=== PATIENT | male | born 1975 | race Caucasian/White ===

== ENCOUNTER 2020-03-05 18:23 | Inpatient (IN) | payer BC ==
[~2020-03-05] VITALS: Ht 180.3 cm; Wt 88.5 kg
--- NOTE | 2020-03-05 19:27 | PHYS DOC ---
Past Medical History Past Medical History: No Pertinent History (KWESI ANTONIO MD) Drug Use: None (KWESI ANTONIO MD) General Adult EDM: Chief Complaint: ABDOMINAL PAIN HPI: HPI: Patient is a 44 year old old male presents with 1 day history of right lower quadrant stabbing pain. Patient has some nausea but no vomiting or diarrhea. Pain is worse with movement and not relieved by anything. Patient denies any fever, chills, cough or shortness of breath. Patient states pain is now about 6 out of 10. Pain prevented him from sleeping well last night. (KWESI ANTONIO MD) Review of Systems: Review of Systems: Constitutional: Denies fever or chills. [] Eyes: Denies change in visual acuity. [] HENT: Denies nasal congestion or sore throat. [] Respiratory: Denies cough or shortness of breath. [] Cardiovascular: Denies chest pain or edema. [] GI: Complains abdominal pain and nausea : Denies dysuria. [] Musculoskeletal: Denies back pain or joint pain. [] Integument: Denies rash. [] Neurologic: Denies headache, focal weakness or sensory changes. [] Endocrine: Denies polyuria or polydipsia. [] Lymphatic: Denies swollen glands. [] Psychiatric: Denies depression or anxiety. [] (KWESI ANTONIO MD) Heart Score: Risk Factors: Risk Factors: DM, Current or recent (<one month) smoker, HTN, HLP, family history of CAD, obesity. Risk Scores: Score 0 - 3: 2.5% MACE over next 6 weeks - Discharge Home Score 4 - 6: 20.3% MACE over next 6 weeks - Admit for Clinical Observation Score 7 - 10: 72.7% MACE over next 6 weeks - Early Invasive Strategies (KWESI ANTONIO MD) Physical Exam: PE: Constitutional: Well developed, well nourished, no acute distress, non-toxic appearance. [] HENT: Normocephalic, atraumatic, bilateral external ears normal, no trismus nose normal. [] Eyes: PERRLA, EOMI, conjunctiva normal, no discharge. [] Neck: Normal range of motion, no tenderness, supple, no stridor. [] Cardiovascular:Heart rate regular rhythm, Lungs & Thorax: no resp distress Abdomen: , soft, ttp rlq no masses, no pulsatile masses. [] no guard/rebound Skin: Warm, dry, no erythema, no rash. [] Back: No tenderness, no CVA tenderness. [] Extremities: No tenderness, no cyanosis, no clubbing, ROM intact, no edema. [] Neurologic: Alert and oriented X 3, normal motor function, normal sensory function, no focal deficits noted. [] Psychologic: Affect normal, judgement normal, mood normal. [] (KWESI ANTONIO MD) PE: Constitutional: Well developed, well nourished, no acute distress, non-toxic appearance HENT: Normocephalic, atraumatic Eyes: Conjunctiva normal, no discharge Neck: Normal range of motion, supple Lungs & Thorax: No respiratory distress, equal chest rise and fall Abdomen: Soft, RLQ tenderness on palpation, no guarding/rebound tenderness/distention Skin: Warm, dry, no erythema, no rash Extremities: No tenderness, ROM intact, no edema Neurologic: Alert and oriented X 3, no focal deficits noted Psychologic: Affect normal, judgment normal (PATRICIA VALLE DO) Current Patient Data: Labs: Laboratory Tests Test 03/05/20 19:30 03/05/20 19:39 Urine Collection Type U cath Urine Color Yellow Urine Clarity Clear Urine pH 6.0 Urine Specific [place] 1.020 Urine Protein Negative mg/dL Urine Glucose (UA) Negative mg/dL Urine Ketones (Stick) Negative mg/dL Urine Blood Negative Urine Nitrite Negative Urine Bilirubin Negative Urine Urobilinogen Dipstick 1.0 mg/dL Urine Leukocyte Esterase Negative Urine RBC 0 /HPF Urine WBC 5-10 /HPF Urine Squamous Epithelial Cells Mod /LPF Urine Bacteria Moderate /HPF Urine Mucus Marked /LPF White Blood Count 7.3 x10^3/uL Red Blood Count 4.53 x10^6/uL Hemoglobin 15.0 g/dL Hematocrit 44.2 % Mean Corpuscular Volume 98 fL Mean Corpuscular Hemoglobin 33 pg Mean Corpuscular Hemoglobin Concent 34 g/dL Red Cell Distribution Width 13.0 % Platelet Count 263 x10^3/uL Neutrophils (%) (Auto) 70 % Lymphocytes (%) (Auto) 17 % Monocytes (%) (Auto) 10 % Eosinophils (%) (Auto) 2 % Basophils (%) (Auto) 1 % Neutrophils # (Auto) 5.1 x10^3/uL Lymphocytes # (Auto) 1.2 x10^3/uL Monocytes # (Auto) 0.7 x10^3/uL Eosinophils # (Auto) 0.2 x10^3/uL Basophils # (Auto) 0.1 x10^3/uL Sodium Level 142 mmol/L Potassium Level 3.9 mmol/L Chloride Level 106 mmol/L Carbon Dioxide Level 30 mmol/L Anion Gap 6 Blood Urea Nitrogen 7 mg/dL Creatinine 1.1 mg/dL Estimated GFR (Cockcroft-Gault) 72.7 BUN/Creatinine Ratio 6 Glucose Level 83 mg/dL Calcium Level 8.6 mg/dL Total Bilirubin 0.5 mg/dL Aspartate Amino Transf (AST/SGOT) 14 U/L Alanine Aminotransferase (ALT/SGPT) 31 U/L Alkaline Phosphatase 67 U/L Total Protein 6.7 g/dL Albumin 3.4 g/dL Albumin/Globulin Ratio 1.0 Lipase 686 U/L Current Medications Medications (Trade) Dose Ordered Sig/Kasia Route PRN Reason Start Time Stop Time Status Last Admin Dose Admin Morphine Sulfate (Morphine Sulfate) 4 mg PRN Q15MIN PRN IV/SQ PAIN GREATER THAN 3/10 03/05/20 19:45 03/06/20 19:44 03/05/20 20:22 Sodium Chloride 1,000 ml @ 1,000 mls/hr Q1H IV 03/05/20 19:33 03/05/20 20:32 DC 03/05/20 20:22 Ondansetron HCl (Zofran) 4 mg 1X ONCE IVP 03/05/20 19:45 03/05/20 19:47 DC 03/05/20 20:20 Iohexol (Omnipaque 300 Mg/ml) 75 ml 1X ONCE IV 03/05/20 20:15 03/05/20 20:19 DC Info (CONTRAST GIVEN -- Rx MONITORING) 1 each PRN DAILY PRN MC SEE COMMENTS 03/05/20 20:30 03/07/20 20:29 Vital Signs: Vital Signs Date Time Temp Pulse Resp B/P (MAP) Pulse Ox O2 Delivery O2 Flow Rate FiO2 03/05/20 19:22 98.6 87 16 118/91 (100) 96 Room Air 98.6 (KWESI ANTONIO MD) EKG: EKG: [] (KWESI NATONIO MD) Radiology/Procedures: Radiology/Procedures: [] (KWESI ANTONIO MD) Radiology/Procedures: PROCEDURE: CT ABD PELV W/ IV CONTRST ONLY CT SCAN OF THE ABDOMEN AND PELVIS WITH IV CONTRAST. History: Reason: rlq pain / Spl. Instructions: INJ 75ML OMNI 300 / History: Comparison:None. Procedure: Contiguous axial images of the abdomen and pelvis were performed after the administration of 75 cc of Omni 300 IV contrast. Oral contrast: No. Findings: There is moderate left hydronephrosis and left hydroureter and there is decreased perfusion of the left kidney. The gallbladder is collapsed and not well evaluated. The appendix is not well seen but appears normal. The cecum and ascending colon are fairly distended and there is moderate wall thickening of a 4.3 similar length of the hepatic flexure the colon. The more distal colon is collapsed. The urinary bladder is mostly collapsed is moderate wall thickening. Liver: Unremarkable Spleen: Unremarkable Pancreas: Unremarkable Adrenal Glands: Unremarkable There is no mass or lymphadenopathy. There is no free air. There is a small amount of free fluid in the pelvis. Impression: 1. Findings suggest partial obstruction of the colon due an apple core lesion in the hepatic flexure the colon. This suggests an adenocarcinoma although focal colitis is possible. 2. Moderate left hydronephrosis and left hydroureter and decreased perfusion of the left kidney. A radiopaque stone is not seen. 3. Trace of free fluid in the pelvis. End impression PQRS Compliance Statement: One or more of the following individualized dose reduction techniques were utilized for this examination: 1. Automated exposure control 2. Adjustment of the mA and/or kV according to patient size 3. Use of iterative reconstruction technique Electronically signed by: Messi Eller III, MD (03/05/2020 9:43 PM) [facility] (PATRICIA VALLE DO) Course & Med Decision Making: Course & Med Decision Making Pertinent Labs and Imaging studies reviewed. (See chart for details) [] 44-year-old male presents with right lower quadrant pain. Patient is to undergo a CT of the abdomen pelvis. Care is signed over to Dr. Valle with the CT report and disposition pending. Patient clinically stable on reassessment. (KWESI ANTONIO MD) Course & Med Decision Making 2100- Sign out received from Dr. Antonio for patient with RLQ abdominal pain. CT imaging pending. Labs reviewed. Patient seen and evaluated by myself. CT findings with concern for partial colon obstruction with apple core lesion concerning for adenocarcinoma. Patient requiring admission for further evaluation and treatment. Discussed with Dr. Blunt (hospitalist) who is in agreement with admission. Consult placed for general surgery and GI. COVID testing obtained due to possible surgery/procedural need. Discussed findings and plan with patient, who acknowledges understanding and agreement. (PATRICIA VALLE DO) Dragon Disclaimer: Dragon Disclaimer: This electronic medical record was generated, in whole or in part, using a voice recognition dictation system. (KWESI ANTONIO MD) Departure Departure Impression: Primary Impression: Partial obstruction of colon Disposition: ADMITTED INPATIENT Admitting Physician: ALESSANDRO Sethi) (PATRICIA VALLE DO) Condition: STABLE Justicifation of Admission Dx: Justifications for Admission: Justification of Admission Dx: N/A (KWESI ANTONIO MD) Justification of Admission Dx: Yes Comments: Partial colon obstruction (PATRICIA VALLE DO) KWESI ANTONIO MD Mar 05, 2020 19:27 PATRICIA VALLE DO Mar 05, 2020 22:25
[2020-03-05] MEDS ORDERED: IV NORMAL SALINE 1000ML BAG 1,000 ML IV SCH (19:33)
[2020-03-05] MEDS ORDERED: ONDANSETRON PF 4 MG/2 ML VIAL. IVP ONE (19:45)
[2020-03-05] MEDS ORDERED: MORPHINE SULFATE 4 MG/ML VIAL. IV/SQ PRN (19:45)
[2020-03-05 19:50] LABS: BILIRUBIN,URINE NEGATIVE (NEG); CLARITY,URINE CLEAR; COLOR,URINE YELLOW; NITRITE,URINE NEGATIVE (NEG); PROTEIN,URINE NEGATIVE (NEG-TRACE)
[2020-03-05 19:50] LABS: BASO # 0.1 x10^3/uL (0.0-0.2); BASO % 1 % (0-3); EOS # 0.2 x10^3/uL (0.0-0.7); EOS % 2 % (0-3); HEMATOCRIT 44.2 % (39.0-53.0); LYMPH # 1.2 x10^3/uL (1.0-4.8); LYMPH % 17 % (24-48); MEAN CORPUSCULAR HEMOGLOBIN 33 pg (25-35); MEAN CORPUSCULAR HGB CONC 34 g/dL (31-37); MEAN CORPUSCULAR VOLUME 98 fL (79-100); MONO # 0.7 x10^3/uL (0.0-1.1); MONO % 10 % (0-9); NEUT # 5.1 x10^3/uL (1.8-7.7); NEUT % 70 % (31-73); PLATELET COUNT 263 x10^3/uL (140-400); RED BLOOD COUNT 4.53 x10^6/uL (4.30-5.70); WHITE BLOOD COUNT 7.3 x10^3/uL (4.0-11.0)
[2020-03-05 19:56] LABS: BACTERIA,URINE MODERATE /HPF (0-FEW); RBC,URINE 0 /HPF (0-2); SQUAMOUS EPITHELIAL CELL,UR MOD /LPF
[2020-03-05 19:58] LABS: CALCIUM 8.6 mg/dL (8.5-10.1); CREATININE 1.1 mg/dL (0.7-1.3); GFR 72.7; POTASSIUM 3.9 mmol/L (3.5-5.1)
[2020-03-05 20:04] LABS: ALBUMIN 3.4 g/dL (3.4-5.0); TOTAL BILIRUBIN 0.5 mg/dL (0.2-1.0); TOTAL PROTEIN 6.7 g/dL (6.4-8.2)
[2020-03-05] MEDS ORDERED: IOHEXOL 300 MG/ML 100ML VIAL. IV ONE (20:15)
[2020-03-05] MEDS ORDERED: CONTRAST GIVEN. MC PRN (20:30)
--- NOTE | 2020-03-05 21:46 | RAD ---
CT SCAN OF THE ABDOMEN AND PELVIS WITH IV CONTRAST. History: Reason: rlq pain / Spl. Instructions: INJ 75ML OMNI 300 / History: Comparison:None. Procedure: Contiguous axial images of the abdomen and pelvis were performed after the administration of 75 cc of Omni 300 IV contrast. Oral contrast: No. Findings: There is moderate left hydronephrosis and left hydroureter and there is decreased perfusion of the left kidney. The gallbladder is collapsed and not well evaluated. The appendix is not well seen but appears normal. The cecum and ascending colon are fairly distended and there is moderate wall thickening of a 4.3 similar length of the hepatic flexure the colon. The more distal colon is collapsed. The urinary bladder is mostly collapsed is moderate wall thickening. Liver: Unremarkable Spleen: Unremarkable Pancreas: Unremarkable Adrenal Glands: Unremarkable There is no mass or lymphadenopathy. There is no free air. There is a small amount of free fluid in the pelvis. Impression: 1. Findings suggest partial obstruction of the colon due an apple core lesion in the hepatic flexure the colon. This suggests an adenocarcinoma although focal colitis is possible. 2. Moderate left hydronephrosis and left hydroureter and decreased perfusion of the left kidney. A radiopaque stone is not seen. 3. Trace of free fluid in the pelvis. End impression PQRS Compliance Statement: One or more of the following individualized dose reduction techniques were utilized for this examination: 1. Automated exposure control 2. Adjustment of the mA and/or kV according to patient size 3. Use of iterative reconstruction technique Electronically signed by: Messi Eller III, MD (03/05/2020 9:43 PM) [facility]
[2020-03-05] MEDS ORDERED: fentaNYL PF VIAL 100 MCG/2 ML VIAL IV PRN (22:30)
[2020-03-05] MEDS ORDERED: ONDANSETRON PF 4 MG/2 ML VIAL. IV PRN (22:30)
--- NOTE | 2020-03-05 23:35 | NUR ---
Patient arrived on unit at 2335 by wheelchair from ER. Pt. is A&Ox4, on room air, and VSS. Pt.'s pain is 3/10 and does not complain of any nausea or vomiting. Admission questions and assessment done at this time. Call light was placed within reach with bed in lowest position. Will continue to monitor.
[2020-03-05 23:40] VITALS: BP 136/94
[2020-03-06] MEDS: IV NORMAL SALINE 1000ML BAG 1,000 ML IV SCH ×3 (00:19→20:24)
--- NOTE | 2020-03-06 01:25 | NUR ---
pt. eats a low carb diet most days. Addendum: 03/06/20 at 0141 by SERGO MORAN RN Amended: Links added.
[2020-03-06] MEDS ORDERED: CETI10TA74 PO (01:59)
[2020-03-06 03:00] VITALS: BP 117/79
[2020-03-06] MEDS ORDERED: CITA20TA9 PO (06:52)
[2020-03-06 07:00] VITALS: BP 124/79
[2020-03-06] MEDS ORDERED: POLYETHYLENE GLYCOL 3350 17 GM PACKET. PO ONE (07:45)
--- NOTE | 2020-03-06 08:16 | PDOC1 ---
History and Physical Date of Admission Date of Admission 03/06/2020 Identification/Chief Complaint Chief Complaint Roseann arias History of Present Illness History of Present Illness Patient is a 44-year-old gentleman with no significant past medical history who was in his usual state of health until approximately 2 days prior to his admission when he started presenting discomfort over his right lower quadrant that initially was mild intensity that over the course of the last 36 hours has intensified. The patient rates the pain at a 10 out of 10 on the day of visit to the ER. Patient denied any fever no nausea vomiting no sick contacts were reported. The patient has not traveled outside this area, he denies any loss of olfactory or taste sensation. He has not been exposed to COVID-19 illness. Patient at the time my evaluation is laying in bed in no apparent distress. His pain seems to be improved compared to initial assessment in the emergency department. He denies any dietary transgressions and actually has had a 100 p ound weight loss over the last 3 years as a consequence of lifestyle modifications. This has certainly been intentional in nature. Patient was scanned and there seems to be a partial obstruction or the right side of: And at the level of the hepatic flexure there seems to be an apple core lesion which could raise possibility of malignancy hence the reason we were asked to admit th e patient for further evaluation. Reassurance has been provided to the patient plan of care discussed in detail no other concerns have been reported by the patient He denies headache blurred vision no neurological deficits no dysphagia odynophagia no chest pain no palpitations no shortness of breath has been reported Past Medical History Past Medical History No significant past medical history Past Surgical History Past Surgical History: Other (Carpal tunnel repair) Family History Family History: Diabetes (Brother) Social History Smoke: <1 pack per day ALCOHOL: rare Drugs: None Current Problem List Problem List Problems Medical Problems: (1) Right lower quadrant abdominal pain Status: Acute Current Medications Current Medications Current Medications Medications (Trade) Dose Ordered Sig/Kasia Start Time Stop Time Status Last Admin Dose Admin Fentanyl Citrate (Fentanyl 2ml Vial) 50 mcg PRN Q2HRS PRN 03/05/20 22:30 Info (CONTRAST GIVEN -- Rx MONITORING) 1 each PRN DAILY PRN 03/05/20 20:30 03/07/20 20:29 Iohexol (Omnipaque 300 Mg/ml) 75 ml 1X ONCE 03/05/20 20:15 03/05/20 20:19 DC 03/05/20 20:15 75 ML Morphine Sulfate (Morphine Sulfate) 4 mg PRN Q15MIN PRN 03/05/20 19:45 03/06/20 19:44 03/05/20 20:22 4 MG Ondansetron HCl (Zofran) 4 mg PRN Q8HRS PRN 03/05/20 22:30 03/06/20 22:29 Polyethylene Glycol (miraLAX PACKET) 34 gm 1X ONCE 03/06/20 07:45 03/06/20 07:46 DC Sodium Chloride 1,000 ml @ 100 mls/hr Q10H 03/05/20 22:30 03/06/20 22:29 03/06/20 00:19 100 MLS/HR Allergies Allergies Allergies Coded Allergies Type Severity Reaction Last Updated Verified Penicillins Allergy Intermediate 03/05/20 Yes ROS Review of System CONSTITUTIONAL: No fever or chills EYES: No recent changes SKIN: No rash or itching CARDIOVASCULAR: No chest pain, syncope, palpitations, or edema RESPIRATORY: No SOB or cough GASTROINTESTINAL: No nausea, vomiting or abdominal pain NEUROLOGICAL: No headaches or weakness ENDOCRINE: No cold or heat intolerance GENITOURINARY: No urgency or frequency of urination MUSCULOSKELETAL: No back pain or joint pain LYMPHATICS: No enlarged lymph nodes PSYCHIATRIC: No anxiety or depression Physical Exam Physical Exam GEN.: No apparent distress. Alert and oriented. HEENT: Head is normocephalic, atraumatic NECK: Supple. LUNGS: Clear to auscultation. HEART: RRR, S1, S2 present. Peripheral pulses intact ABDOMEN: Soft, nontender. Positive bowel sounds. EXTREMITIES: Without any cyanosis. NEUROLOGIC: Normal speech, normal tone PSYCHIATRIC: Normal affect, normal mood. SKIN: No ulcerations Vitals Vitals Vital Signs Date Time Temp Pulse Resp B/P (MAP) Pulse Ox O2 Delivery O2 Flow Rate FiO2 03/06/20 07:00 99.0 69 18 124/79 (94) 95 Room Air 99.0 Labs Labs Laboratory Tests Test 03/05/20 19:30 03/05/20 19:39 03/05/20 22:46 Urine Collection Type U cath Urine Color Yellow Urine Clarity Clear Urine pH 6.0 (<5.0-8.0) Urine Specific [place] 1.020 (1.000-1.030) Urine Protein Negative mg/dL (NEG-TRACE) Urine Glucose (UA) Negative mg/dL (NEG) Urine Ketones (Stick) Negative mg/dL (NEG) Urine Blood Negative (NEG) Urine Nitrite Negative (NEG) Urine Bilirubin Negative (NEG) Urine Urobilinogen Dipstick 1.0 mg/dL (0.2 mg/dL) Urine Leukocyte Esterase Negative (NEG) Urine RBC 0 /HPF (0-2) Urine WBC 5-10 /HPF (0-4) Urine Squamous Epithelial Cells Mod /LPF Urine Bacteria Moderate /HPF (0-FEW) Urine Mucus Marked /LPF White Blood Count 7.3 x10^3/uL (4.0-11.0) Red Blood Count 4.53 x10^6/uL (4.30-5.70) Hemoglobin 15.0 g/dL (13.0-17.5) Hematocrit 44.2 % (39.0-53.0) Mean Corpuscular Volume 98 fL (79-100) Mean Corpuscular Hemoglobin 33 pg (25-35) Mean Corpuscular Hemoglobin Concent 34 g/dL (31-37) Red Cell Distribution Width 13.0 % (11.5-14.5) Platelet Count 263 x10^3/uL (140-400) Neutrophils (%) (Auto) 70 % (31-73) Lymphocytes (%) (Auto) 17 % (24-48) Monocytes (%) (Auto) 10 % (0-9) Eosinophils (%) (Auto) 2 % (0-3) Basophils (%) (Auto) 1 % (0-3) Neutrophils # (Auto) 5.1 x10^3/uL (1.8-7.7) Lymphocytes # (Auto) 1.2 x10^3/uL (1.0-4.8) Monocytes # (Auto) 0.7 x10^3/uL (0.0-1.1) Eosinophils # (Auto) 0.2 x10^3/uL (0.0-0.7) Basophils # (Auto) 0.1 x10^3/uL (0.0-0.2) Sodium Level 142 mmol/L (136-145) Potassium Level 3.9 mmol/L (3.5-5.1) Chloride Level 106 mmol/L (98-107) Carbon Dioxide Level 30 mmol/L (21-32) Anion Gap 6 (6-14) Blood Urea Nitrogen 7 mg/dL (8-26) Creatinine 1.1 mg/dL (0.7-1.3) Estimated GFR (Cockcroft-Gault) 72.7 BUN/Creatinine Ratio 6 (6-20) Glucose Level 83 mg/dL (70-99) Calcium Level 8.6 mg/dL (8.5-10.1) Total Bilirubin 0.5 mg/dL (0.2-1.0) Aspartate Amino Transf (AST/SGOT) 14 U/L (15-37) Alanine Aminotransferase (ALT/SGPT) 31 U/L (16-63) Alkaline Phosphatase 67 U/L (46-116) Total Protein 6.7 g/dL (6.4-8.2) Albumin 3.4 g/dL (3.4-5.0) Albumin/Globulin Ratio 1.0 (1.0-1.7) Lipase 686 U/L (73-393) SARS-CoV-2 Antigen (Rapid) Negative (NEGATIVE) Laboratory Tests Test 03/05/20 19:30 03/05/20 19:39 03/05/20 22:46 Urine Collection Type U cath Urine Color Yellow Urine Clarity Clear Urine pH 6.0 (<5.0-8.0) Urine Specific [place] 1.020 (1.000-1.030) Urine Protein Negative mg/dL (NEG-TRACE) Urine Glucose (UA) Negative mg/dL (NEG) Urine Ketones (Stick) Negative mg/dL (NEG) Urine Blood Negative (NEG) Urine Nitrite Negative (NEG) Urine Bilirubin Negative (NEG) Urine Urobilinogen Dipstick 1.0 mg/dL (0.2 mg/dL) Urine Leukocyte Esterase Negative (NEG) Urine RBC 0 /HPF (0-2) Urine WBC 5-10 /HPF (0-4) Urine Squamous Epithelial Cells Mod /LPF Urine Bacteria Moderate /HPF (0-FEW) Urine Mucus Marked /LPF White Blood Count 7.3 x10^3/uL (4.0-11.0) Red Blood Count 4.53 x10^6/uL (4.30-5.70) Hemoglobin 15.0 g/dL (13.0-17.5) Hematocrit 44.2 % (39.0-53.0) Mean Corpuscular Volume 98 fL (79-100) Mean Corpuscular Hemoglobin 33 pg (25-35) Mean Corpuscular Hemoglobin Concent 34 g/dL (31-37) Red Cell Distribution Width 13.0 % (11.5-14.5) Platelet Count 263 x10^3/uL (140-400) Neutrophils (%) (Auto) 70 % (31-73) Lymphocytes (%) (Auto) 17 % (24-48) Monocytes (%) (Auto) 10 % (0-9) Eosinophils (%) (Auto) 2 % (0-3) Basophils (%) (Auto) 1 % (0-3) Neutrophils # (Auto) 5.1 x10^3/uL (1.8-7.7) Lymphocytes # (Auto) 1.2 x10^3/uL (1.0-4.8) Monocytes # (Auto) 0.7 x10^3/uL (0.0-1.1) Eosinophils # (Auto) 0.2 x10^3/uL (0.0-0.7) Basophils # (Auto) 0.1 x10^3/uL (0.0-0.2) Sodium Level 142 mmol/L (136-145) Potassium Level 3.9 mmol/L (3.5-5.1) Chloride Level 106 mmol/L (98-107) Carbon Dioxide Level 30 mmol/L (21-32) Anion Gap 6 (6-14) Blood Urea Nitrogen 7 mg/dL (8-26) Creatinine 1.1 mg/dL (0.7-1.3) Estimated GFR (Cockcroft-Gault) 72.7 BUN/Creatinine Ratio 6 (6-20) Glucose Level 83 mg/dL (70-99) Calcium Level 8.6 mg/dL (8.5-10.1) Total Bilirubin 0.5 mg/dL (0.2-1.0) Aspartate Amino Transf (AST/SGOT) 14 U/L (15-37) Alanine Aminotransferase (ALT/SGPT) 31 U/L (16-63) Alkaline Phosphatase 67 U/L (46-116) Total Protein 6.7 g/dL (6.4-8.2) Albumin 3.4 g/dL (3.4-5.0) Albumin/Globulin Ratio 1.0 (1.0-1.7) Lipase 686 U/L (73-393) SARS-CoV-2 Antigen (Rapid) Negative (NEGATIVE) VTE Prophylaxis Ordered VTE Prophylaxis Devices: Yes VTE Pharmacological Prophylaxi: No Assessment/Plan Assessment/Plan Abdominal pain currently improved CT of the abdomen showing an apple core lesion over the hepatic flexure portion of his colon Elevated lipase with no significant clinical significance Plan: Currently n.p.o. until consultants evaluate Awaiting GI and surgical evaluation Pain management DVT prophylaxis with SCD and teds Further recommendations based on the clinical course Justicifation of Admission Dx: Justifications for Admission: Justification of Admission Dx: Yes ANDRESSA DONALDSON MD Mar 06, 2020 08:16
--- NOTE | 2020-03-06 08:57 | PDOC2 ---
CONSULT Date of Consult Date of Consult DATE: 03/06/20 TIME: 08:53 Reason for Consult Reason for Consult: Colonic obstruction Referring Physician Referring Physician: Merlene Identification/Chief Complaint Chief Complaint Right upper quadrant abdominal pain Source Source: Chart review, Patient History of Present Illness Reason for Visit: 44-year-old male the last week is had significant right upper quadrant abdominal pain rating 10 out of 10 which is why he came to the emergency department for further evaluation. He states his last bowel movement was yesterday loose and has been passing flatus has never had a colonoscopy. CT scan done at the time of emergency room evaluation shows partial obstruction of the right colon with a lesion at the hepatic flexure likely apple core concerning for malignancy Past Medical History Cardiovascular: No pertinent hx Pulmonary: No pertinent hx CENTRAL NERVOUS SYSTEM: Carpal Tunnel Syndrome GI: No pertinent hx Heme/Onc: No pertinent hx Hepatobiliary: No pertinent hx Psych: No pertinent hx Rheumatologic: No pertinent hx ENT: No pertinent hx Renal/: No pertinent hx Endocrine: No pertinent hx Dermatology: No pertinent hx Past Surgical History Past Surgical History: Other (Carpal tunnel repair) Family History Family History: Diabetes (Brother) Social History <1 pack per day ALCOHOL: rare Drugs: None Current Problem List Problem List Problems Medical Problems: (1) Right lower quadrant abdominal pain Status: Acute Current Medications Current Medications Current Medications Morphine Sulfate (Morphine Sulfate) 4 mg PRN Q15MIN PRN IV/SQ PAIN GREATER THAN 3/10 Last administered on 03/05/20at 20:22; Start 03/05/20 at 19:45; Stop 03/06/20 at 19:44 Sodium Chloride 1,000 ml @ 1,000 mls/hr Q1H IV Last administered on 03/05/20at 20:22; Start 03/05/20 at 19:33; Stop 03/05/20 at 20:32; Status DC Ondansetron HCl (Zofran) 4 mg 1X ONCE IVP Last administered on 03/05/20at 20:20; Start 03/05/20 at 19:45; Stop 03/05/20 at 19:47; Status DC Iohexol (Omnipaque 300 Mg/ml) 75 ml 1X ONCE IV Last administered on 03/05/20at 20:15; Start 03/05/20 at 20:15; Stop 03/05/20 at 20:19; Status DC Info (CONTRAST GIVEN -- Rx MONITORING) 1 each PRN DAILY PRN MC SEE COMMENTS; Start 03/05/20 at 20:30; Stop 03/07/20 at 20:29 Ondansetron HCl (Zofran) 4 mg PRN Q8HRS PRN IV NAUSEA/VOMITING; Start 03/05/20 at 22:30; Stop 03/06/20 at 22:29 Fentanyl Citrate (Fentanyl 2ml Vial) 50 mcg PRN Q2HRS PRN IV PAIN; Start 03/05/20 at 22:30 Sodium Chloride 1,000 ml @ 100 mls/hr Q10H IV Last administered on 03/06/20at 08:19; Start 03/05/20 at 22:30; Stop 03/06/20 at 22:29 Polyethylene Glycol (miraLAX PACKET) 34 gm 1X ONCE PO Last administered on 03/06/20at 08:15; Start 03/06/20 at 07:45; Stop 03/06/20 at 07:46; Status DC Active Scripts Active Reported Celexa (Citalopram Hydrobromide) 20 Mg Tablet 1 Tab PO DAILY Zyrtec (Cetirizine Hcl) 10 Mg Tablet 1 Tab PO DAILY Allergies Allergies: Coded Allergies: Penicillins (Verified Allergy, Intermediate, 03/05/20) ROS Gastrointestinal: Yes Abdominal Pain Physical Exam General: Alert, Oriented X3, Cooperative, mild distress HEENT: Atraumatic, PERRLA, EOMI Lungs: Clear to auscultation, Normal air movement Heart: Regular rate, No murmurs Abdomen: Normal bowel sounds, Soft, Other (Tender to palpation right upper quadrant mildly distended) Extremities: No edema Skin: No significant lesion Neuro: Normal speech Psych/Mental Status: Mental status NL Vitals VITALS Vital Signs Date Time Temp Pulse Resp B/P (MAP) Pulse Ox O2 Delivery O2 Flow Rate FiO2 03/06/20 07:00 99.0 69 18 124/79 (94) 95 Room Air 99.0 Labs Labs Laboratory Tests Test 03/05/20 19:30 03/05/20 19:39 03/05/20 22:46 Urine Collection Type U cath Urine Color Yellow Urine Clarity Clear Urine pH 6.0 (<5.0-8.0) Urine Specific [place] 1.020 (1.000-1.030) Urine Protein Negative mg/dL (NEG-TRACE) Urine Glucose (UA) Negative mg/dL (NEG) Urine Ketones (Stick) Negative mg/dL (NEG) Urine Blood Negative (NEG) Urine Nitrite Negative (NEG) Urine Bilirubin Negative (NEG) Urine Urobilinogen Dipstick 1.0 mg/dL (0.2 mg/dL) Urine Leukocyte Esterase Negative (NEG) Urine RBC 0 /HPF (0-2) Urine WBC 5-10 /HPF (0-4) Urine Squamous Epithelial Cells Mod /LPF Urine Bacteria Moderate /HPF (0-FEW) Urine Mucus Marked /LPF White Blood Count 7.3 x10^3/uL (4.0-11.0) Red Blood Count 4.53 x10^6/uL (4.30-5.70) Hemoglobin 15.0 g/dL (13.0-17.5) Hematocrit 44.2 % (39.0-53.0) Mean Corpuscular Volume 98 fL (79-100) Mean Corpuscular Hemoglobin 33 pg (25-35) Mean Corpuscular Hemoglobin Concent 34 g/dL (31-37) Red Cell Distribution Width 13.0 % (11.5-14.5) Platelet Count 263 x10^3/uL (140-400) Neutrophils (%) (Auto) 70 % (31-73) Lymphocytes (%) (Auto) 17 % (24-48) Monocytes (%) (Auto) 10 % (0-9) Eosinophils (%) (Auto) 2 % (0-3) Basophils (%) (Auto) 1 % (0-3) Neutrophils # (Auto) 5.1 x10^3/uL (1.8-7.7) Lymphocytes # (Auto) 1.2 x10^3/uL (1.0-4.8) Monocytes # (Auto) 0.7 x10^3/uL (0.0-1.1) Eosinophils # (Auto) 0.2 x10^3/uL (0.0-0.7) Basophils # (Auto) 0.1 x10^3/uL (0.0-0.2) Sodium Level 142 mmol/L (136-145) Potassium Level 3.9 mmol/L (3.5-5.1) Chloride Level 106 mmol/L (98-107) Carbon Dioxide Level 30 mmol/L (21-32) Anion Gap 6 (6-14) Blood Urea Nitrogen 7 mg/dL (8-26) Creatinine 1.1 mg/dL (0.7-1.3) Estimated GFR (Cockcroft-Gault) 72.7 BUN/Creatinine Ratio 6 (6-20) Glucose Level 83 mg/dL (70-99) Calcium Level 8.6 mg/dL (8.5-10.1) Total Bilirubin 0.5 mg/dL (0.2-1.0) Aspartate Amino Transf (AST/SGOT) 14 U/L (15-37) Alanine Aminotransferase (ALT/SGPT) 31 U/L (16-63) Alkaline Phosphatase 67 U/L (46-116) Total Protein 6.7 g/dL (6.4-8.2) Albumin 3.4 g/dL (3.4-5.0) Albumin/Globulin Ratio 1.0 (1.0-1.7) Lipase 686 U/L (73-393) SARS-CoV-2 Antigen (Rapid) Negative (NEGATIVE) Laboratory Tests Test 03/05/20 19:30 03/05/20 19:39 03/05/20 22:46 Urine Collection Type U cath Urine Color Yellow Urine Clarity Clear Urine pH 6.0 (<5.0-8.0) Urine Specific [place] 1.020 (1.000-1.030) Urine Protein Negative mg/dL (NEG-TRACE) Urine Glucose (UA) Negative mg/dL (NEG) Urine Ketones (Stick) Negative mg/dL (NEG) Urine Blood Negative (NEG) Urine Nitrite Negative (NEG) Urine Bilirubin Negative (NEG) Urine Urobilinogen Dipstick 1.0 mg/dL (0.2 mg/dL) Urine Leukocyte Esterase Negative (NEG) Urine RBC 0 /HPF (0-2) Urine WBC 5-10 /HPF (0-4) Urine Squamous Epithelial Cells Mod /LPF Urine Bacteria Moderate /HPF (0-FEW) Urine Mucus Marked /LPF White Blood Count 7.3 x10^3/uL (4.0-11.0) Red Blood Count 4.53 x10^6/uL (4.30-5.70) Hemoglobin 15.0 g/dL (13.0-17.5) Hematocrit 44.2 % (39.0-53.0) Mean Corpuscular Volume 98 fL (79-100) Mean Corpuscular Hemoglobin 33 pg (25-35) Mean Corpuscular Hemoglobin Concent 34 g/dL (31-37) Red Cell Distribution Width 13.0 % (11.5-14.5) Platelet Count 263 x10^3/uL (140-400) Neutrophils (%) (Auto) 70 % (31-73) Lymphocytes (%) (Auto) 17 % (24-48) Monocytes (%) (Auto) 10 % (0-9) Eosinophils (%) (Auto) 2 % (0-3) Basophils (%) (Auto) 1 % (0-3) Neutrophils # (Auto) 5.1 x10^3/uL (1.8-7.7) Lymphocytes # (Auto) 1.2 x10^3/uL (1.0-4.8) Monocytes # (Auto) 0.7 x10^3/uL (0.0-1.1) Eosinophils # (Auto) 0.2 x10^3/uL (0.0-0.7) Basophils # (Auto) 0.1 x10^3/uL (0.0-0.2) Sodium Level 142 mmol/L (136-145) Potassium Level 3.9 mmol/L (3.5-5.1) Chloride Level 106 mmol/L (98-107) Carbon Dioxide Level 30 mmol/L (21-32) Anion Gap 6 (6-14) Blood Urea Nitrogen 7 mg/dL (8-26) Creatinine 1.1 mg/dL (0.7-1.3) Estimated GFR (Cockcroft-Gault) 72.7 BUN/Creatinine Ratio 6 (6-20) Glucose Level 83 mg/dL (70-99) Calcium Level 8.6 mg/dL (8.5-10.1) Total Bilirubin 0.5 mg/dL (0.2-1.0) Aspartate Amino Transf (AST/SGOT) 14 U/L (15-37) Alanine Aminotransferase (ALT/SGPT) 31 U/L (16-63) Alkaline Phosphatase 67 U/L (46-116) Total Protein 6.7 g/dL (6.4-8.2) Albumin 3.4 g/dL (3.4-5.0) Albumin/Globulin Ratio 1.0 (1.0-1.7) Lipase 686 U/L (73-393) SARS-CoV-2 Antigen (Rapid) Negative (NEGATIVE) Images Images CT scan showing obstructed right colon with apple core lesion at the hepatic flexure. Assessment/Plan Assessment/Plan Colonic mass at the hepatic flexure causing obstruction, by CT scan it does not appear the patient will be able to be tolerate a prep prior to surgery GI to evaluate Plan for colon resection tomorrow KATE Lopez MD Mar 06, 2020 08:57
[2020-03-06 11:00] VITALS: BP 128/86
[2020-03-06 15:00] VITALS: BP 138/86
--- NOTE | 2020-03-06 15:12 | PDOC2 ---
CONSULT Date of Consult Date of Consult DATE: 03/06/20 TIME: 14:58 Reason for Consult Reason for Consult: Abdominal pain, abnormal CT scan History of Present Illness Reason for Visit: This is a 44-year-old man who is been in good health with no significant GI complaints in the past. He describes sudden onset of abdominal pain mostly right lower quadrant on evening. It improved with some ibuprofen but then recurred. It is a sharp stabbing pain that forced him to come to the hospital. He does relate some intentional weight loss over the past several years on a low-carb diet. He does not have any dramatic worsening of weight loss recently and denies any nausea, vomiting, constipation, rectal bleeding or melena. In fact he had a bowel movement yesterday and has a normal bowel movement daily with his coffee. There is no history of colonoscopy. He also has no family history of colon cancer or polyps. Initial evaluation included CT scan which revealed a partial obstruction of the right colon with what appears to be a narrowing in the hepatic flexure suggestive of an apple core lesion. There is a fair amount of gas and stool distention behind this. Past Medical History Cardiovascular: No pertinent hx Pulmonary: No pertinent hx CENTRAL NERVOUS SYSTEM: Carpal Tunnel Syndrome GI: No pertinent hx Heme/Onc: No pertinent hx Hepatobiliary: No pertinent hx Psych: No pertinent hx Rheumatologic: No pertinent hx ENT: No pertinent hx Renal/: No pertinent hx Endocrine: No pertinent hx Dermatology: No pertinent hx Past Surgical History Past Surgical History: Other (Carpal tunnel repair) Family History Family History: Diabetes (Brother) Social History <1 pack per day ALCOHOL: rare Drugs: None Current Problem List Problem List Problems Medical Problems: (1) Right lower quadrant abdominal pain Status: Acute Current Medications Current Medications Current Medications Morphine Sulfate (Morphine Sulfate) 4 mg PRN Q15MIN PRN IV/SQ PAIN GREATER THAN 3/10 Last administered on 03/05/20at 20:22; Start 03/05/20 at 19:45; Stop 03/06/20 at 11:45; Status DC Sodium Chloride 1,000 ml @ 1,000 mls/hr Q1H IV Last administered on 03/05/20at 20:22; Start 03/05/20 at 19:33; Stop 03/05/20 at 20:32; Status DC Ondansetron HCl (Zofran) 4 mg 1X ONCE IVP Last administered on 03/05/20at 20:20; Start 03/05/20 at 19:45; Stop 03/05/20 at 19:47; Status DC Iohexol (Omnipaque 300 Mg/ml) 75 ml 1X ONCE IV Last administered on 03/05/20at 20:15; Start 03/05/20 at 20:15; Stop 03/05/20 at 20:19; Status DC Info (CONTRAST GIVEN -- Rx MONITORING) 1 each PRN DAILY PRN MC SEE COMMENTS; Start 03/05/20 at 20:30; Stop 03/07/20 at 20:29 Ondansetron HCl (Zofran) 4 mg PRN Q8HRS PRN IV NAUSEA/VOMITING; Start 03/05/20 at 22:30; Stop 03/06/20 at 22:29 Fentanyl Citrate (Fentanyl 2ml Vial) 50 mcg PRN Q2HRS PRN IV PAIN; Start 03/05/20 at 22:30; Stop 03/06/20 at 22:29 Sodium Chloride 1,000 ml @ 100 mls/hr Q10H IV Last administered on 03/06/20at 08:19; Start 03/05/20 at 22:30; Stop 03/06/20 at 22:29 Polyethylene Glycol (miraLAX PACKET) 34 gm 1X ONCE PO Last administered on 03/06/20at 08:15; Start 03/06/20 at 07:45; Stop 03/06/20 at 07:46; Status DC Ringer's Solution 1,000 ml @ 30 mls/hr Q24H IV ; Start 03/07/20 at 07:00; Stop 03/07/20 at 18:59 Prochlorperazine Edisylate (Compazine) 5 mg PACU PRN PRN IV NAUSEA, MRX1; Start 03/07/20 at 07:00; Stop 03/08/20 at 06:59 Active Scripts Active Reported Celexa (Citalopram Hydrobromide) 20 Mg Tablet 1 Tab PO DAILY Zyrtec (Cetirizine Hcl) 10 Mg Tablet 1 Tab PO DAILY Allergies Allergies: Coded Allergies: Penicillins (Verified Allergy, Intermediate, 03/05/20) Physical Exam General: Alert, Oriented X3 HEENT: Atraumatic, PERRLA Lungs: Clear to auscultation Heart: Regular rate, Normal S1, Normal S2 Abdomen: Normal bowel sounds, Soft, No masses, Other (Mild tenderness in the right lower quadrant.) Extremities: No clubbing, No cyanosis Neuro: Normal speech Psych/Mental Status: Mental status NL Vitals VITALS Vital Signs Date Time Temp Pulse Resp B/P (MAP) Pulse Ox O2 Delivery O2 Flow Rate FiO2 03/06/20 11:00 98.8 62 18 128/86 (100) 96 Room Air 98.8 Labs Labs Laboratory Tests Test 03/05/20 19:30 03/05/20 19:39 03/05/20 22:46 Urine Collection Type U cath Urine Color Yellow Urine Clarity Clear Urine pH 6.0 (<5.0-8.0) Urine Specific [place] 1.020 (1.000-1.030) Urine Protein Negative mg/dL (NEG-TRACE) Urine Glucose (UA) Negative mg/dL (NEG) Urine Ketones (Stick) Negative mg/dL (NEG) Urine Blood Negative (NEG) Urine Nitrite Negative (NEG) Urine Bilirubin Negative (NEG) Urine Urobilinogen Dipstick 1.0 mg/dL (0.2 mg/dL) Urine Leukocyte Esterase Negative (NEG) Urine RBC 0 /HPF (0-2) Urine WBC 5-10 /HPF (0-4) Urine Squamous Epithelial Cells Mod /LPF Urine Bacteria Moderate /HPF (0-FEW) Urine Mucus Marked /LPF White Blood Count 7.3 x10^3/uL (4.0-11.0) Red Blood Count 4.53 x10^6/uL (4.30-5.70) Hemoglobin 15.0 g/dL (13.0-17.5) Hematocrit 44.2 % (39.0-53.0) Mean Corpuscular Volume 98 fL (79-100) Mean Corpuscular Hemoglobin 33 pg (25-35) Mean Corpuscular Hemoglobin Concent 34 g/dL (31-37) Red Cell Distribution Width 13.0 % (11.5-14.5) Platelet Count 263 x10^3/uL (140-400) Neutrophils (%) (Auto) 70 % (31-73) Lymphocytes (%) (Auto) 17 % (24-48) Monocytes (%) (Auto) 10 % (0-9) Eosinophils (%) (Auto) 2 % (0-3) Basophils (%) (Auto) 1 % (0-3) Neutrophils # (Auto) 5.1 x10^3/uL (1.8-7.7) Lymphocytes # (Auto) 1.2 x10^3/uL (1.0-4.8) Monocytes # (Auto) 0.7 x10^3/uL (0.0-1.1) Eosinophils # (Auto) 0.2 x10^3/uL (0.0-0.7) Basophils # (Auto) 0.1 x10^3/uL (0.0-0.2) Sodium Level 142 mmol/L (136-145) Potassium Level 3.9 mmol/L (3.5-5.1) Chloride Level 106 mmol/L (98-107) Carbon Dioxide Level 30 mmol/L (21-32) Anion Gap 6 (6-14) Blood Urea Nitrogen 7 mg/dL (8-26) Creatinine 1.1 mg/dL (0.7-1.3) Estimated GFR (Cockcroft-Gault) 72.7 BUN/Creatinine Ratio 6 (6-20) Glucose Level 83 mg/dL (70-99) Calcium Level 8.6 mg/dL (8.5-10.1) Total Bilirubin 0.5 mg/dL (0.2-1.0) Aspartate Amino Transf (AST/SGOT) 14 U/L (15-37) Alanine Aminotransferase (ALT/SGPT) 31 U/L (16-63) Alkaline Phosphatase 67 U/L (46-116) Total Protein 6.7 g/dL (6.4-8.2) Albumin 3.4 g/dL (3.4-5.0) Albumin/Globulin Ratio 1.0 (1.0-1.7) Lipase 686 U/L (73-393) SARS-CoV-2 Antigen (Rapid) Negative (NEGATIVE) Laboratory Tests Test 03/05/20 19:30 03/05/20 19:39 03/05/20 22:46 Urine Collection Type U cath Urine Color Yellow Urine Clarity Clear Urine pH 6.0 (<5.0-8.0) Urine Specific [place] 1.020 (1.000-1.030) Urine Protein Negative mg/dL (NEG-TRACE) Urine Glucose (UA) Negative mg/dL (NEG) Urine Ketones (Stick) Negative mg/dL (NEG) Urine Blood Negative (NEG) Urine Nitrite Negative (NEG) Urine Bilirubin Negative (NEG) Urine Urobilinogen Dipstick 1.0 mg/dL (0.2 mg/dL) Urine Leukocyte Esterase Negative (NEG) Urine RBC 0 /HPF (0-2) Urine WBC 5-10 /HPF (0-4) Urine Squamous Epithelial Cells Mod /LPF Urine Bacteria Moderate /HPF (0-FEW) Urine Mucus Marked /LPF White Blood Count 7.3 x10^3/uL (4.0-11.0) Red Blood Count 4.53 x10^6/uL (4.30-5.70) Hemoglobin 15.0 g/dL (13.0-17.5) Hematocrit 44.2 % (39.0-53.0) Mean Corpuscular Volume 98 fL (79-100) Mean Corpuscular Hemoglobin 33 pg (25-35) Mean Corpuscular Hemoglobin Concent 34 g/dL (31-37) Red Cell Distribution Width 13.0 % (11.5-14.5) Platelet Count 263 x10^3/uL (140-400) Neutrophils (%) (Auto) 70 % (31-73) Lymphocytes (%) (Auto) 17 % (24-48) Monocytes (%) (Auto) 10 % (0-9) Eosinophils (%) (Auto) 2 % (0-3) Basophils (%) (Auto) 1 % (0-3) Neutrophils # (Auto) 5.1 x10^3/uL (1.8-7.7) Lymphocytes # (Auto) 1.2 x10^3/uL (1.0-4.8) Monocytes # (Auto) 0.7 x10^3/uL (0.0-1.1) Eosinophils # (Auto) 0.2 x10^3/uL (0.0-0.7) Basophils # (Auto) 0.1 x10^3/uL (0.0-0.2) Sodium Level 142 mmol/L (136-145) Potassium Level 3.9 mmol/L (3.5-5.1) Chloride Level 106 mmol/L (98-107) Carbon Dioxide Level 30 mmol/L (21-32) Anion Gap 6 (6-14) Blood Urea Nitrogen 7 mg/dL (8-26) Creatinine 1.1 mg/dL (0.7-1.3) Estimated GFR (Cockcroft-Gault) 72.7 BUN/Creatinine Ratio 6 (6-20) Glucose Level 83 mg/dL (70-99) Calcium Level 8.6 mg/dL (8.5-10.1) Total Bilirubin 0.5 mg/dL (0.2-1.0) Aspartate Amino Transf (AST/SGOT) 14 U/L (15-37) Alanine Aminotransferase (ALT/SGPT) 31 U/L (16-63) Alkaline Phosphatase 67 U/L (46-116) Total Protein 6.7 g/dL (6.4-8.2) Albumin 3.4 g/dL (3.4-5.0) Albumin/Globulin Ratio 1.0 (1.0-1.7) Lipase 686 U/L (73-393) SARS-CoV-2 Antigen (Rapid) Negative (NEGATIVE) Images Images CT scan of the abdomen and pelvis. Revealing partial large bowel obstruction with a narrowing in the hepatic flexure suggestive of an apple core lesion. He also has some left-sided hydronephrosis. No obvious adenopathy is noted. The more proximal small bowel does not appear to be significantly dilated Assessment/Plan Assessment/Plan New onset right-sided abdominal pain with no prior history of symptoms. CT scan reveals partial bowel obstruction with distention of the right colon which is the likely source of the pain. There is a narrowing in the hepatic flexure that could be an ischemic stricture or an apple core lesion which suggests colon cancer. Fortunately I do not see any adenopathy or obvious metastatic disease to the liver at this point on this imaging study. Because he was not completely obstructed and had a bowel movement yesterday, I did give him some MiraLAX this morning as a test. Over the last 5 hours he has had no bowel movement. Fortunately he has had no nausea or vomiting. He relates that he has seen Dr. Wyman with surgery. He has planned a right hemicolectomy. Normally if he was not completely obstructed I would recommend a colonoscopy first but in this setting he is nearly completely obstructed and has not responded to some MiraLAX earlier today so that a bowel prep seems unlikely to be effective. Plan: Will order CEA marker. Based on his clinical setting, I do not think any further attempt at bowel preparation or preoperative colonoscopy is likely to be fruitful. He will however require a full colonoscopy later after recovery. I will defer the timing of his surgery to BEATRIZ Perez MD Mar 06, 2020 15:12
[2020-03-06 19:42] VITALS: BP 148/97
[2020-03-06 23:00] VITALS: BP 140/87
[2020-03-07] VITALS (12 sets, daily range): BP systolic 125–161; BP diastolic 83–95
[2020-03-07] MEDS ORDERED: PROCHLORPERAZINE 10 MG/2 ML VIAL. IV PRN (07:00)
[2020-03-07] MEDS ORDERED: IV RINGERS,LACTATED 1000ML 1,000 ML IV SCH ×2 (07:00→10:02)
[2020-03-07] MEDS ORDERED: fentaNYL PF VIAL 100 MCG/2 ML VIAL ONE ×3 (07:08→09:37)
[2020-03-07] MEDS ORDERED: ROCURONIUM 50 MG/5 ML VIAL. ONE ×2 (07:08→08:26)
[2020-03-07] MEDS ORDERED: ONDANSETRON PF 4 MG/2 ML VIAL. ONE (07:08)
[2020-03-07] MEDS ORDERED: LIDOCAINE 2% PF 5 ML VIAL. ONE (07:08)
[2020-03-07] MEDS ORDERED: PROPOFOL 10 MG/ML (20ML) VIAL. IV ONE (07:08)
[2020-03-07] MEDS ORDERED: DEXAMETHASONE SOD PHOS 4 MG/ML VIAL ONE (07:08)
--- NOTE | 2020-03-07 07:30 | NUR ---
0730 Pt transported to the OR holding area
[2020-03-07] MEDS ORDERED: NEOSTIGMINE METHYLSULFATE 5 MG/5 ML SYRINGE. ONE (08:18)
[2020-03-07] MEDS ORDERED: GLYCOPYRROLATE 1 MG/5 ML VIAL. ONE (08:18)
[2020-03-07] MEDS ORDERED: PHENYLEPHRINE in 0.9% NACL PF 1 MG/10 ML SYRINGE. IV ONE (08:46)
[2020-03-07] MEDS ORDERED: BUPIVACAINE-EPI 0.25%-1:200000 MPF 30 ML VIAL. ONE (09:33)
[2020-03-07] MEDS ORDERED: IV DEXTROSE 5%-LACT RINGERS 1,000 ML IV SCH (09:44)
--- NOTE | 2020-03-07 09:44 | PDOC4 ---
Operative Note Operative Note Date: 03/07/2020 at 937 Preoperative diagnosis: Hepatic flexure colon mass partially obstructing Postoperative diagnosis: Same Procedure: Extended right hemicolectomy with omentectomy Surgeon: Garo Specimen: Extended right colon partial transverse colon and omentum done Dictation: Patient is a 44-year-old gentleman admitted to the hospital with right upper quadrant abdominal pain a CT scan showed a apple core lesion within his hepatic flexure causing partial obstruction. Procedure of colectomy was explained to the patient detail was benefits were also discussed including bleeding infection alternatives to this procedure also discussed with patient who seemed to understand and gave both verbal and written consent to have the procedure performed. Patient was taken to the operating room placed in the supine position general anesthesia was initiated once patient was sleeping intubated his abdomen was prepped and draped usual sterile fashion using Ch loraPrep. Midline incision was made from just above the umbilicus to the epigastrium is carried down through the subcutaneous tissues electrocautery right hemostasis down the fascia fascia was opened electrocautery the peritoneum was opened Metzenbaum scissors once the abdomen was entered it was further opened electrocautery. Abdomen was inspected there was a large mass within the colon at the hepatic flexure liver appeared to be normal no masses noted was noted that the omentum was quite studded and very densely here to both the stomach and transverse colon. Attention is returned to the resection mid transverse area where the colon appeared to be normal a window was propagated the mesentery which allowed for a DAVON stapler 75 to staple and transect the di stal colon impact LigaSure was used to take down the mesentery was noted that the colon was densely adherent to the omentum this was taken down electrocautery but also very closely adherent to the duodenum on the backside careful dissection was used to peel off the colon from the duodenum there appeared to be no invasion of the duodenum or stomach. This dissection was carried around releasing hepatic flexure with electrocautery down the white line of [place] on the right side using electrocautery. The terminal ileum was stapled and transected with a DAVON stapler and the right extended colon mesentery was taken off at the root using the impact LigaSure until the main vessel was tied doubly with 0 Vicryl. Specimen was passed off for pathology. Small bowel terminal ileum was brought up to the mid transverse colon a [id number] anastomosis was completed with a DAVON stapler 75 the enterotomy was closed with a running interlocking 3-0 Vicryl and oversewn with 3-0 Vicryl Lembert sutures. Abdomen was irrigated and suctioned dry hemostasis deemed be appropriate and the fascia was closed with a running oh loop PDS. Subcutaneous layer was closed with a 2-0 Vicryl running suture the skin was reapproximated 4-0 subcuticular Monocryl Mastisol Steri-Strips 4 x 4's Medipore tape were applied as dressing. Patient was awakened extubated in the operating room taken to recovery in stable condition all sponge instrument needle counts listed as correct estimated blood loss 60 mL. KATE GARNER MD Mar 07, 2020 09:44
[2020-03-07] MEDS ORDERED: ONDANSETRON PF 4 MG/2 ML VIAL. IV PRN (09:45)
[2020-03-07] MEDS ORDERED: oxyCODONE/APAP 5/325 1 TAB TABLET PO PRN (09:45)
[2020-03-07] MEDS ORDERED: 0.9 % SODIUM CHLORIDE 10 ML DISP.SYRIN. IV PRN (09:45)
[2020-03-07] MEDS ORDERED: KETOROLAC 30 MG/ML VIAL. ONE (10:07)
[2020-03-07] MEDS: KETOROLAC 15 MG/ML VIAL. IV SCH ×2 (10:11→17:14)
[2020-03-07] MEDS: MORPHINE SULFATE 2 MG/ML VIAL. IV PRN ×2 (10:11→12:10)
[2020-03-07] MEDS ORDERED: HYDROmorphone 2 MG/ML VIAL ONE (10:22)
[2020-03-07] MEDS: HYDROmorphone 2 MG/ML VIAL IV PRN ×4 (10:24→10:41)
--- NOTE | 2020-03-07 13:27 | PDOC ---
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 pain management IS further recommendations based on pathology will follow results of [facility] History of Present Illness History of Present Illness Patient seen postop, tolerated procedure well Operative note as follows Operative Note Date: 03/07/2020 at 937 Preoperative diagnosis: Hepatic flexure colon mass partially obstructing Postoperative diagnosis: Same Procedure: Extended right hemicolectomy with omentectomy Surgeon: Garo Specimen: Extended right colon partial transverse colon and omentum done Dictation: Patient is a 44-year-old gentleman admitted to the hospital with right upper quadrant abdominal pain a CT scan showed a apple core lesion within his hepatic flexure causing partial obstruction. Procedure of colectomy was explained to the patient detail was benefits were also discussed including bleeding infection alternatives to this procedure also discussed with patient who seemed to understand and gave both verbal and written consent to have the procedure performed. Patient was taken to the operating room placed in the supine position general anesthesia was initiated once patient was sleeping intubated his abdomen was prepped and draped usual sterile fashion using ChloraPrep. Midline incision was made from just above the umbilicus to the epigastrium is carried down through the subcutaneous tissues electrocautery right hemostasis down the fascia fascia was opened electrocautery the peritoneum was opened Metzenbaum scissors once the abdomen was entered it was further opened electrocautery. Abdomen was inspected there was a large mass within the colon at the hepatic flexure liver appeared to be normal no masses noted was noted that the omentum was quite studded and very densely here to both the stomach and transverse colon. Attention is returned to the resection mid transverse area where the colon appeared to be normal a window was propagated the mesentery which allowed for a DAVON stapler 75 to staple and transect the distal colon impact LigaSure was used to take down the mesentery was noted that the colon was densely adherent to the omentum this was taken down electrocautery but also very closely adherent to the duodenum on the backside careful dissection was used to peel off the colon from the duodenum there appeared to be no invasion of the duodenum or stomach. This dissection was carried around releasing hepatic flexure with electrocautery down the white line of [place] on the right side using electrocautery. The terminal ileum was stapled and transected with a DAVON stapler and the right extended colon mesentery was taken off at the root using the impact LigaSure until the main vessel was tied doubly with 0 Vicryl. Specimen was passed off for pathology. Small bowel terminal ileum was brought up to the mid transverse colon a [id number] anastomosis was completed with a DAVON stapler 75 the enterotomy was closed with a running interlocking 3-0 Vicryl and oversewn with 3-0 Vicryl Lembert sutures. Abdomen was irrigated and suctioned dry hemostasis deemed be appropriate and the fascia was closed with a running oh loop PDS. Subcutaneous layer was closed with a 2-0 Vicryl running suture the skin was reapproximated 4-0 subcuticular Monocryl Mastisol Steri-Strips 4 x 4's Medipore tape were applied as dressing. Patient was awakened extubated in the operating room taken to recovery in stable condition all sponge instrument needle counts listed as correct estimated blood loss 60 mL. Vitals Vitals Vital Signs Date Time Temp Pulse Resp B/P (MAP) Pulse Ox O2 Delivery O2 Flow Rate FiO2 03/07/20 12:40 20 Room Air 03/07/20 10:41 98 03/07/20 10:37 80 144/88 10 03/07/20 09:49 98.5 98.5 Physical Exam General: Alert, Oriented X3 Heart: Regular rate, Normal S1, Normal S2 Abdomen: Normal bowel sounds, Soft, No masses, Other (Mild tenderness in the right lower quadrant.) Extremities: No clubbing, No cyanosis Skin: No significant lesion Assessment and Plan Assessmemt and Plan Problems Medical Problems: (1) Right lower quadrant abdominal pain Status: Acute Comment Review of Relevant I have reviewed the following items richar (where applicable) has been applied. Labs Laboratory Tests Test 03/05/20 19:30 03/05/20 19:39 03/05/20 22:46 Urine Collection Type U cath Urine Color Yellow Urine Clarity Clear Urine pH 6.0 (<5.0-8.0) Urine Specific [place] 1.020 (1.000-1.030) Urine Protein Negative mg/dL (NEG-TRACE) Urine Glucose (UA) Negative mg/dL (NEG) Urine Ketones (Stick) Negative mg/dL (NEG) Urine Blood Negative (NEG) Urine Nitrite Negative (NEG) Urine Bilirubin Negative (NEG) Urine Urobilinogen Dipstick 1.0 mg/dL (0.2 mg/dL) Urine Leukocyte Esterase Negative (NEG) Urine RBC 0 /HPF (0-2) Urine WBC 5-10 /HPF (0-4) Urine Squamous Epithelial Cells Mod /LPF Urine Bacteria Moderate /HPF (0-FEW) Urine Mucus Marked /LPF White Blood Count 7.3 x10^3/uL (4.0-11.0) Red Blood Count 4.53 x10^6/uL (4.30-5.70) Hemoglobin 15.0 g/dL (13.0-17.5) Hematocrit 44.2 % (39.0-53.0) Mean Corpuscular Volume 98 fL (79-100) Mean Corpuscular Hemoglobin 33 pg (25-35) Mean Corpuscular Hemoglobin Concent 34 g/dL (31-37) Red Cell Distribution Width 13.0 % (11.5-14.5) Platelet Count 263 x10^3/uL (140-400) Neutrophils (%) (Auto) 70 % (31-73) Lymphocytes (%) (Auto) 17 % (24-48) Monocytes (%) (Auto) 10 % (0-9) Eosinophils (%) (Auto) 2 % (0-3) Basophils (%) (Auto) 1 % (0-3) Neutrophils # (Auto) 5.1 x10^3/uL (1.8-7.7) Lymphocytes # (Auto) 1.2 x10^3/uL (1.0-4.8) Monocytes # (Auto) 0.7 x10^3/uL (0.0-1.1) Eosinophils # (Auto) 0.2 x10^3/uL (0.0-0.7) Basophils # (Auto) 0.1 x10^3/uL (0.0-0.2) Sodium Level 142 mmol/L (136-145) Potassium Level 3.9 mmol/L (3.5-5.1) Chloride Level 106 mmol/L (98-107) Carbon Dioxide Level 30 mmol/L (21-32) Anion Gap 6 (6-14) Blood Urea Nitrogen 7 mg/dL (8-26) Creatinine 1.1 mg/dL (0.7-1.3) Estimated GFR (Cockcroft-Gault) 72.7 BUN/Creatinine Ratio 6 (6-20) Glucose Level 83 mg/dL (70-99) Calcium Level 8.6 mg/dL (8.5-10.1) Total Bilirubin 0.5 mg/dL (0.2-1.0) Aspartate Amino Transf (AST/SGOT) 14 U/L (15-37) Alanine Aminotransferase (ALT/SGPT) 31 U/L (16-63) Alkaline Phosphatase 67 U/L (46-116) Total Protein 6.7 g/dL (6.4-8.2) Albumin 3.4 g/dL (3.4-5.0) Albumin/Globulin Ratio 1.0 (1.0-1.7) Lipase 686 U/L (73-393) SARS-CoV-2 Antigen (Rapid) Negative (NEGATIVE) Microbiology 03/05/20 Urine Culture - Final, Complete Medications Current Medications Morphine Sulfate (Morphine Sulfate) 4 mg PRN Q15MIN PRN IV/SQ PAIN GREATER THAN 3/10 Last administered on 03/05/20at 20:22; Start 03/05/20 at 19:45; Stop 03/06/20 at 11:45; Status DC Sodium Chloride 1,000 ml @ 1,000 mls/hr Q1H IV Last administered on 03/05/20at 20:22; Start 03/05/20 at 19:33; Stop 03/05/20 at 20:32; Status DC Ondansetron HCl (Zofran) 4 mg 1X ONCE IVP Last administered on 03/05/20at 20:20 ; Start 03/05/20 at 19:45; Stop 03/05/20 at 19:47; Status DC Iohexol (Omnipaque 300 Mg/ml) 75 ml 1X ONCE IV Last administered on 03/05/20at 20:15; Start 03/05/20 at 20:15; Stop 03/05/20 at 20:19; Status DC Info (CONTRAST GIVEN -- Rx MONITORING) 1 each PRN DAILY PRN MC SEE COMMENTS; Start 03/05/20 at 20:30; Stop 03/07/20 at 20:29 Ondansetron HCl (Zofran) 4 mg PRN Q8HRS PRN IV NAUSEA/VOMITING; Start 03/05/20 at 22:30; Stop 03/06/20 at 22:29; Status DC Fentanyl Citrate (Fentanyl 2ml Vial) 50 mcg PRN Q2HRS PRN IV PAIN; Start 03/05/20 at 22:30; Stop 03/06/20 at 22:29; Status DC Sodium Chloride 1,000 ml @ 100 mls/hr Q10H IV Last administered on 03/06/20at 20:24; Start 03/05/20 at 22:30; Stop 03/06/20 at 22:29; Status DC Polyethylene Glycol (miraLAX PACKET) 34 gm 1X ONCE PO Last administered on 03/06/20at 08:15; Start 03/06/20 at 07:45; Stop 03/06/20 at 07:46; Status DC Ringer's Solution 1,000 ml @ 30 mls/hr Q24H IV Last administered on 03/07/20at 10:07; Start 03/07/20 at 07:00; Stop 03/07/20 at 12:59; Status DC Prochlorperazine Edisylate (Compazine) 5 mg PACU PRN PRN IV NAUSEA, MRX1; Start 03/07/20 at 07:00; Stop 03/08/20 at 06:59 Lorazepam (Ativan Inj) 1 mg PRN Q6HRS PRN IVP ANXIETY / AGITATION Last administered on 03/06/20at 18:57; Start 03/06/20 at 18:30 Ondansetron HCl (Zofran) 4 mg STK-MED ONCE .ROUTE ; Start 03/07/20 at 07:08; Stop 03/07/20 at 07:08; Status DC Propofol (Diprivan) 200 mg STK-MED ONCE IV ; Start 03/07/20 at 07:08; Stop 03/07/20 at 07:08; Status DC Lidocaine HCl (Lidocaine Pf 2% Vial) 5 ml STK-MED ONCE .ROUTE ; Start 03/07/20 at 07:08; Stop 03/07/20 at 07:08; Status DC Dexamethasone Sodium Phosphate (Decadron) 4 mg STK-MED ONCE .ROUTE ; Start 03/07/20 at 07:08; Stop 03/07/20 at 07:08; Status DC Fentanyl Citrate (Fentanyl 2ml Vial) 100 mcg STK-MED ONCE .ROUTE ; Start 03/07/20 at 07:08; Stop 03/07/20 at 07:09; Status DC Rocuronium [place] (Zemuron) 50 mg STK-MED ONCE .ROUTE ; Start 03/07/20 at 07:08; Stop 03/07/20 at 07:09; Status DC Levofloxacin/ Dextrose 100 ml @ As Directed STK-MED ONCE IV ; Start 03/07/20 at 07:45; Stop 03/07/20 at 07:46; Status DC Fentanyl Citrate (Fentanyl 2ml Vial) 100 mcg STK-MED ONCE .ROUTE ; Start 03/07/20 at 08:12; Stop 03/07/20 at 08:12; Status DC Glycopyrrolate (Robinul) 1 mg STK-MED ONCE .ROUTE ; Start 03/07/20 at 08:18; Stop 03/07/20 at 08:18; Status DC Neostigmine [place] (Neostigmine Methylsulfate) 5 mg STK-MED ONCE .ROUTE ; Start 03/07/20 at 08:18; Stop 03/07/20 at 08:19; Status DC Rocuronium [place] (Zemuron) 50 mg STK-MED ONCE .ROUTE ; Start 03/07/20 at 08:26; Stop 03/07/20 at 08:26; Status DC Phenylephrine HCl (PHENYLEPHRINE in 0.9% NACL PF) 1 mg STK-MED ONCE IV ; Start 03/07/20 at 08:46; Stop 03/07/20 at 08:46; Status DC Bupivacaine HCl/ Epinephrine Bitart (Sensorcaine-Epi 0.25%-1:215257 Mpf) 30 ml STK-MED ONCE .ROUTE Last administered on 03/07/20at 08:11; Start 03/07/20 at 09:33; Stop 03/07/20 at 09:33; Status DC Fentanyl Citrate (Fentanyl 2ml Vial) 100 mcg STK-MED ONCE .ROUTE ; Start 03/07/20 at 09:37; Stop 03/07/20 at 09:37; Status DC Sodium Chloride (Normal Saline Flush) 3 ml QSHIFT PRN IV AFTER MEDS AND BLOOD DRAWS; Start 03/07/20 at 09:45 Morphine Sulfate (Morphine Sulfate) 2 mg PRN Q3HRS PRN IV PAIN Last administered on 03/07/20at 12:10; Start 03/07/20 at 09:45 Oxycodone/ Acetaminophen (Percocet 5/325) 1 tab PRN Q4HRS PRN PO MILD PAIN, 1ST CHOICE; Start 03/07/20 at 09:45 Oxycodone/ Acetaminophen (Percocet 5/325) 2 tab PRN Q4HRS PRN PO MODERATE PAIN, SEVERE PAIN; Start 03/07/20 at 09:45 Ketorolac Tromethamine (Toradol 15mg Vial) 15 mg Q6HRS IV Last administered on 03/07/20at 10:11; Start 03/07/20 at 12:00; Stop 03/09/20 at 11:59 Ondansetron HCl (Zofran) 4 mg PRN Q6HRS PRN IV NAUSEA, 1ST CHOICE; Start 03/07/20 at 09:45 Dextrose/Lactated Ringer's 1,000 ml @ 75 mls/hr [id number] IV ; Start 03/07/20 at 09:44; Stop 03/07/20 at 12:59; Status DC Ringer's Solution 1,000 ml @ 30 mls/hr Q24H IV Last administered on 03/07/20at 09:30; Start 03/07/20 at 10:02; Stop 03/07/20 at 12:59; Status DC Ketorolac Tromethamine (Toradol 30mg Vial) 30 mg STK-MED ONCE .ROUTE ; Start 03/07/20 at 10:07; Stop 03/07/20 at 10:08; Status DC Hydromorphone HCl (Dilaudid) 0.5 mg PRN Q10MIN PRN IV Moderate to severe pain Last administered on 03/07/20at 10:41; Start 03/07/20 at 10:15; Stop 03/07/20 at 13:22; Status DC Hydromorphone HCl (Dilaudid) 2 mg STK-MED ONCE .ROUTE ; Start 03/07/20 at 10:22; Stop 03/07/20 at 10:22; Status DC Active Scripts Active Reported Celexa (Citalopram Hydrobromide) 20 Mg Tablet 1 Tab PO DAILY Zyrtec (Cetirizine Hcl) 10 Mg Tablet 1 Tab PO DAILY Vitals/I & O Vital Sign - Last 24 Hours 03/06/20 03/06/20 03/06/20 03/06/20 15:00 19:35 19:42 23:00 Temp 99.3 99.4 98.5 99.3 99.4 98.5 Pulse 55 69 77 Resp 20 18 18 B/P (MAP) 138/86 (103) 148/97 (114) 140/87 (104) Pulse Ox 96 97 O2 Delivery Room Air Room Air Room Air Room Air 03/07/20 03/07/20 03/07/20 03/07/20 02:52 08:00 09:49 09:49 Temp 98.6 98.5 98.6 98.5 Pulse 72 90 Resp 18 18 B/P (MAP) 139/83 (101) 141/95 Pulse Ox 96 100 O2 Delivery Room Air Room Air Room Air O2 Flow Rate 10 10 03/07/20 03/07/20 03/07/20 03/07/20 10:10 10:11 10:24 10:25 Pulse 79 85 Resp 18 18 18 18 B/P (MAP) 156/95 160/92 Pulse Ox 100 100 100 100 O2 Delivery Simple Mask Simple Mask Room Air Simple Mask O2 Flow Rate 10 10.0 10.0 10 03/07/20 03/07/20 03/07/20 03/07/20 10:33 10:35 10:37 10:41 Pulse 80 Resp 16 16 16 16 B/P (MAP) 144/88 Pulse Ox 100 100 100 98 O2 Delivery Room Air Simple Mask Simple Mask Room Air O2 Flow Rate 10.0 10.0 10 03/07/20 03/07/20 03/07/20 03/07/20 11:03 11:05 11:11 12:10 Resp 20 20 20 20 O2 Delivery Room Air Room Air Room Air Room Air 03/07/20 12:40 Resp 20 O2 Delivery Room Air Intake and Output 03/06/20 03/06/20 03/07/20 15:00 23:00 07:00 Intake Total 0 ml 0 ml Balance 0 ml 0 ml Justicifation of Admission Dx: Justifications for Admission: Justification of Admission Dx: Yes ANDRESSA DONALDSON MD Mar 07, 2020 13:27
[2020-03-07] MEDS ORDERED: MORPHINE SULFATE 4 MG/ML VIAL. IV ONE ×2 (15:00→19:30)
--- NOTE | 2020-03-07 15:17 | PDOC ---
GI PROGRESS NOTES Date Date/Time DATE: 03/07/20 TIME: 15:16 Subjective Subjective Postop right hemicolectomy. 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 We will await pathology for confirmation. he is comfortable in his bed presently Objective Vitals Vital Signs Date Time Temp Pulse Resp B/P (MAP) Pulse Ox O2 Delivery O2 Flow Rate FiO2 03/07/20 14:22 92 20 139/94 (109) 90 Room Air 03/07/20 13:30 91 20 140/90 (107) 92 Room Air 03/07/20 13:00 98.7 94 20 142/95 (111) 93 Room Air 98.7 03/07/20 12:40 20 Room Air 03/07/20 12:30 98.6 92 20 140/92 (108) 92 Room Air 98.6 03/07/20 12:10 20 Room Air 03/07/20 12:00 105 20 142/83 (102) 92 Room Air 03/07/20 11:45 91 20 125/86 (99) 92 Room Air 03/07/20 11:15 98.6 95 20 144/88 (106) 93 Room Air 98.6 03/07/20 11:11 20 Room Air 03/07/20 11:05 20 Room Air 03/07/20 11:03 20 Room Air 03/07/20 11:00 98.3 92 20 160/90 (113) Room Air 98.3 03/07/20 10:41 16 98 Room Air 03/07/20 10:37 80 16 144/88 100 Simple Mask 10 03/07/20 10:35 16 100 Simple Mask 10.0 03/07/20 10:33 16 100 Room Air 10.0 03/07/20 10:25 85 18 160/92 100 Simple Mask 10 03/07/20 10:24 18 100 Room Air 10.0 03/07/20 10:11 18 100 Simple Mask 10.0 03/07/20 10:10 79 18 156/95 100 Simple Mask 10 03/07/20 09:49 10 03/07/20 09:49 98.5 90 18 141/95 100 Room Air 10 98.5 03/07/20 08:00 Room Air 03/07/20 07:30 98.6 92 20 161/90 (113) Room Air 98.6 03/07/20 02:52 98.6 72 18 139/83 (101) 96 Room Air 98.6 03/06/20 23:00 98.5 77 18 140/87 (104) 97 Room Air 98.5 03/06/20 19:42 99.4 69 18 148/97 (114) 96 Room Air 99.4 03/06/20 19:35 Room Air Physical Exam Physical Exam Alert Chest clear Heart regular rate and rhythm Abdomen soft, tender from surgery, no bowel sounds yet. Assessment Assessment Hepatic flexure mass with near complete obstruction of the colon status post surgical removal with right hemicolectomy earlier today. Await pathology to determine the type of tumor and extent of involvement Justicifation of Admission Dx: Justifications for Admission: Justification of Admission Dx: Yes BEATRIZ CRONIN MD Mar 07, 2020 15:17
[2020-03-07] MEDS: IV NORMAL SALINE 1000ML BAG 1,000 ML IV SCH (16:16)
[2020-03-08] MEDS: KETOROLAC 15 MG/ML VIAL. IV SCH ×4 (00:22→18:30)
[2020-03-08] MEDS: IV NORMAL SALINE 1000ML BAG 1,000 ML IV SCH ×3 (00:25→19:44)
[2020-03-08 03:11] VITALS: BP 143/94
[2020-03-08 04:40] LABS: BASO % 1 % (0-3); EOS # 0.1 x10^3/uL (0.0-0.7); EOS % 1 % (0-3); HEMATOCRIT 43.6 % (39.0-53.0); LYMPH % 11 % (24-48); MEAN CORPUSCULAR HEMOGLOBIN 34 pg (25-35); MEAN CORPUSCULAR HGB CONC 34 g/dL (31-37); MEAN CORPUSCULAR VOLUME 99 fL (79-100); MONO # 0.7 x10^3/uL (0.0-1.1); MONO % 8 % (0-9); NEUT # 7.7 x10^3/uL (1.8-7.7); NEUT % 81 % (31-73); PLATELET COUNT 240 x10^3/uL (140-400); RED BLOOD COUNT 4.42 x10^6/uL (4.30-5.70); RED CELL DISTRIBUTION WIDTH 12.9 % (11.5-14.5); WHITE BLOOD COUNT 9.5 x10^3/uL (4.0-11.0)
[2020-03-08 07:00] VITALS: BP 142/89
--- NOTE | 2020-03-08 07:49 | PDOC ---
GI PROGRESS NOTES Date Date/Time DATE: 03/08/20 TIME: 07:47 Subjective Subjective Recovering postop. Did get some rest last night. He asked about whether it is okay for him to ambulate. Objective Vitals Vital Signs Date Time Temp Pulse Resp B/P (MAP) Pulse Ox O2 Delivery O2 Flow Rate FiO2 03/08/20 07:00 98.0 87 18 142/89 (106) 96 Room Air 98.0 03/08/20 03:11 98.9 84 18 143/94 (110) 94 Room Air 98.9 03/07/20 23:00 100.2 99 20 141/92 (108) 91 Room Air 100.2 03/07/20 21:45 Room Air 03/07/20 20:45 Room Air 03/07/20 20:15 Room Air 03/07/20 20:05 Room Air 03/07/20 19:44 Room Air 03/07/20 19:00 100.2 97 20 142/95 (111) 92 Room Air 100.2 03/07/20 15:42 20 Room Air 03/07/20 15:12 20 Room Air 03/07/20 14:22 92 20 139/94 (109) 90 Room Air 03/07/20 13:30 91 20 140/90 (107) 92 Room Air 03/07/20 13:00 98.7 94 20 142/95 (111) 93 Room Air 98.7 03/07/20 12:40 20 Room Air 03/07/20 12:30 98.6 92 20 140/92 (108) 92 Room Air 98.6 03/07/20 12:10 20 Room Air 03/07/20 12:00 105 20 142/83 (102) 92 Room Air 03/07/20 11:45 91 20 125/86 (99) 92 Room Air 03/07/20 11:15 98.6 95 20 144/88 (106) 93 Room Air 98.6 03/07/20 11:11 20 Room Air 03/07/20 11:05 20 Room Air 03/07/20 11:03 20 Room Air 03/07/20 11:00 98.3 92 20 160/90 (113) Room Air 98.3 03/07/20 10:41 16 98 Room Air 03/07/20 10:37 80 16 144/88 100 Simple Mask 10 03/07/20 10:35 16 100 Simple Mask 10.0 03/07/20 10:33 16 100 Room Air 10.0 03/07/20 10:25 85 18 160/92 100 Simple Mask 10 03/07/20 10:24 18 100 Room Air 10.0 03/07/20 10:11 18 100 Simple Mask 10.0 03/07/20 10:10 79 18 156/95 100 Simple Mask 10 03/07/20 09:49 10 03/07/20 09:49 98.5 90 18 141/95 100 Room Air 10 98.5 03/07/20 08:00 Room Air Labs Labs Laboratory Tests Test 03/08/20 03:20 White Blood Count 9.5 x10^3/uL (4.0-11.0) Red Blood Count 4.42 x10^6/uL (4.30-5.70) Hemoglobin 15.0 g/dL (13.0-17.5) Hematocrit 43.6 % (39.0-53.0) Mean Corpuscular Volume 99 fL (79-100) Mean Corpuscular Hemoglobin 34 pg (25-35) Mean Corpuscular Hemoglobin Concent 34 g/dL (31-37) Red Cell Distribution Width 12.9 % (11.5-14.5) Platelet Count 240 x10^3/uL (140-400) Neutrophils (%) (Auto) 81 % (31-73) Lymphocytes (%) (Auto) 11 % (24-48) Monocytes (%) (Auto) 8 % (0-9) Eosinophils (%) (Auto) 1 % (0-3) Basophils (%) (Auto) 1 % (0-3) Neutrophils # (Auto) 7.7 x10^3/uL (1.8-7.7) Lymphocytes # (Auto) 1.0 x10^3/uL (1.0-4.8) Monocytes # (Auto) 0.7 x10^3/uL (0.0-1.1) Eosinophils # (Auto) 0.1 x10^3/uL (0.0-0.7) Basophils # (Auto) 0.0 x10^3/uL (0.0-0.2) Physical Exam Physical Exam Alert Chest clear Heart regular rate and rhythm Abdomen soft, tender from surgery, few bowel sounds . 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 Await pathology to determine the type of tumor and extent of involvement Plan Plan Patient asked about whether it be okay for him to ambulate. It certainly okay with me but I will defer to surgery on this issue. Justicifation of Admission Dx: Justifications for Admission: Justification of Admission Dx: Yes BEATRIZ CRONIN MD Mar 08, 2020 07:49
[2020-03-08] MEDS ORDERED: HYDROmorphone 2 MG/ML VIAL IVP PRN (08:15)
--- NOTE | 2020-03-08 08:16 | PDOC ---
SURGICAL PROGRESS NOTE Subjective Patient doing well this morning complains of some incisional pain and soreness no nausea Vital Signs Vital Signs Date Time Temp Pulse Resp B/P (MAP) Pulse Ox O2 Delivery O2 Flow Rate FiO2 03/08/20 07:00 98.0 87 18 142/89 (106) 96 Room Air 98.0 03/07/20 10:37 10 I&O Intake and Output 03/08/20 06:59 Intake Total 1720 ml Output Total 2425 ml Balance -705 ml Intake Oral 120 ml IV Total 1600 ml Output Urine Total 2325 ml Estimated Blood Loss 100 ml # Voids 1 PATIENT HAS A CONNELLY: Yes General: Alert, Oriented X3, Cooperative, mild distress Abdomen: Soft, Other (Mild incisional tenderness wounds clean dry and intact) Labs Laboratory Tests Test 03/08/20 03:20 White Blood Count 9.5 x10^3/uL (4.0-11.0) Red Blood Count 4.42 x10^6/uL (4.30-5.70) Hemoglobin 15.0 g/dL (13.0-17.5) Hematocrit 43.6 % (39.0-53.0) Mean Corpuscular Volume 99 fL (79-100) Mean Corpuscular Hemoglobin 34 pg (25-35) Mean Corpuscular Hemoglobin Concent 34 g/dL (31-37) Red Cell Distribution Width 12.9 % (11.5-14.5) Platelet Count 240 x10^3/uL (140-400) Neutrophils (%) (Auto) 81 % (31-73) Lymphocytes (%) (Auto) 11 % (24-48) Monocytes (%) (Auto) 8 % (0-9) Eosinophils (%) (Auto) 1 % (0-3) Basophils (%) (Auto) 1 % (0-3) Neutrophils # (Auto) 7.7 x10^3/uL (1.8-7.7) Lymphocytes # (Auto) 1.0 x10^3/uL (1.0-4.8) Monocytes # (Auto) 0.7 x10^3/uL (0.0-1.1) Eosinophils # (Auto) 0.1 x10^3/uL (0.0-0.7) Basophils # (Auto) 0.0 x10^3/uL (0.0-0.2) Laboratory Tests Test 03/08/20 03:20 White Blood Count 9.5 x10^3/uL (4.0-11.0) Red Blood Count 4.42 x10^6/uL (4.30-5.70) Hemoglobin 15.0 g/dL (13.0-17.5) Hematocrit 43.6 % (39.0-53.0) Mean Corpuscular Volume 99 fL (79-100) Mean Corpuscular Hemoglobin 34 pg (25-35) Mean Corpuscular Hemoglobin Concent 34 g/dL (31-37) Red Cell Distribution Width 12.9 % (11.5-14.5) Platelet Count 240 x10^3/uL (140-400) Neutrophils (%) (Auto) 81 % (31-73) Lymphocytes (%) (Auto) 11 % (24-48) Monocytes (%) (Auto) 8 % (0-9) Eosinophils (%) (Auto) 1 % (0-3) Basophils (%) (Auto) 1 % (0-3) Neutrophils # (Auto) 7.7 x10^3/uL (1.8-7.7) Lymphocytes # (Auto) 1.0 x10^3/uL (1.0-4.8) Monocytes # (Auto) 0.7 x10^3/uL (0.0-1.1) Eosinophils # (Auto) 0.1 x10^3/uL (0.0-0.7) Basophils # (Auto) 0.0 x10^3/uL (0.0-0.2) Problem List Problems Medical Problems: (1) Right lower quadrant abdominal pain Status: Acute Assessment/Plan Status post extended right hemicolectomy Awaiting return of bowel function Continue supportive care Justicifation of Admission Dx: Justifications for Admission: Justification of Admission Dx: Yes KATE GARNER MD Mar 08, 2020 08:16
[2020-03-08] MEDS: HYDROmorphone 2 MG/ML VIAL IV PRN ×4 (08:31→22:55)
--- NOTE | 2020-03-08 10:20 | NUR ---
SW following. Discussed with RN, pt from home, room air. NPO, awaiting return of bowel function. SW will continue to follow.
[2020-03-08 11:00] VITALS: BP 139/89
--- NOTE | 2020-03-08 11:28 | PDOC ---
PROGRESS NOTES Chief Complaint Chief Complaint Abdominal pain postop no concerning signs Partial bowel obstruction secondary to hepatic flexure colon mass Plan: follow recommendations from registered nurse surgical services pain management IS further recommendations based on pathology will follow results of [facility] History of Present Illness History of Present Illness Patient seen postop, tolerated procedure well Operative note as follows Operative Note Date: 03/07/2020 at 937 Preoperative diagnosis: Hepatic flexure colon mass partially obstructing Postoperative diagnosis: Same Procedure: Extended right hemicolectomy with omentectomy Surgeon: Garo Specimen: Extended right colon partial transverse colon and omentum done Dictation: Patient is a 44-year-old gentleman admitted to the hospital with right upper quadrant abdominal pain a CT scan showed a apple core lesion within his hepatic flexure causing partial obstruction. Procedure of colectomy was explained to the patient detail was benefits were also discussed including bleeding infection alternatives to this procedure also discussed with patient who seemed to understand and gave both verbal and written consent to have the procedure performed. Patient was taken to the operating room placed in the supine position general anesthesia was initiated once patient was sleeping intubated his abdomen was prepped and draped usual sterile fashion using ChloraPrep. Midline incision was made from just above the umbilicus to the epigastrium is carried down through the subcutaneous tissues electrocautery right hemostasis down the fascia fascia was opened electrocautery the peritoneum was opened Metzenbaum scissors once the abdomen was entered it was further opened electrocautery. Abdomen was inspected there was a large mass within the colon at the hepatic flexure liver appeared to be normal no masses noted was noted that the omentum was quite studded and very densely here to both the stomach and transverse colon. Attention is returned to the resection mid transverse area where the colon appeared to be normal a window was propagated the mesentery which allowed for a DAVON stapler 75 to staple and transect the distal colon impact LigaSure was used to take down the mesentery was noted that the colon was densely adherent to the omentum this was taken down electrocautery but also very closely adherent to the duodenum on the backside careful dissection was used to peel off the colon from the duodenum there appeared to be no invasion of the duodenum or stomach. This dissection was carried around releasing hepatic flexure with electrocautery down the white line of [place] on the right side using electrocautery. The terminal ileum was stapled and transec kiel with a DAVON stapler and the right extended colon mesentery was taken off at the root using the impact LigaSure until the main vessel was tied doubly with 0 Vicryl. Specimen was passed off for pathology. Small bowel terminal ileum was brought up to the mid transverse colon a [id number] anastomosis was completed with a DAVON stapler 75 the enterotomy was closed with a running interlocking 3-0 Vicryl and oversewn with 3-0 Vicryl Lembert sutures. Abdomen was irrigated and suctioned dry hemostasis deemed be appropriate and the fascia was closed with a running oh loop PDS. Subcutaneous layer was closed with a 2-0 Vicryl running suture the skin was reapproximated 4-0 subcuticular Monocryl Mastisol Steri- Strips 4 x 4's Medipore tape were applied as dressing. Patient was awakened extubated in the operating room taken to recovery in stable condition all sponge instrument needle counts listed as correct estimated blood loss 60 mL. Vitals Vitals Vital Signs Date Time Temp Pulse Resp B/P (MAP) Pulse Ox O2 Delivery O2 Flow Rate FiO2 03/08/20 11:00 98.1 88 19 139/89 (106) 94 Room Air 98.1 03/07/20 10:37 10 Physical Exam General: Alert, Oriented X3, Cooperative, mild distress Heart: Regular rate, Normal S1, Normal S2 Abdomen: Soft, Other (Mild incisional tenderness wounds clean dry and intact) Extremities: No clubbing, No cyanosis Skin: No significant lesion Labs LABS Laboratory Tests Test 03/08/20 03:20 White Blood Count 9.5 x10^3/uL (4.0-11.0) Red Blood Count 4.42 x10^6/uL (4.30-5.70) Hemoglobin 15.0 g/dL (13.0-17.5) Hematocrit 43.6 % (39.0-53.0) Mean Corpuscular Volume 99 fL (79-100) Mean Corpuscular Hemoglobin 34 pg (25-35) Mean Corpuscular Hemoglobin Concent 34 g/dL (31-37) Red Cell Distribution Width 12.9 % (11.5-14.5) Platelet Count 240 x10^3/uL (140-400) Neutrophils (%) (Auto) 81 % (31-73) Lymphocytes (%) (Auto) 11 % (24-48) Monocytes (%) (Auto) 8 % (0-9) Eosinophils (%) (Auto) 1 % (0-3) Basophils (%) (Auto) 1 % (0-3) Neutrophils # (Auto) 7.7 x10^3/uL (1.8-7.7) Lymphocytes # (Auto) 1.0 x10^3/uL (1.0-4.8) Monocytes # (Auto) 0.7 x10^3/uL (0.0-1.1) Eosinophils # (Auto) 0.1 x10^3/uL (0.0-0.7) Basophils # (Auto) 0.0 x10^3/uL (0.0-0.2) Assessment and Plan Assessmemt and Plan Problems Medical Problems: (1) Right lower quadrant abdominal pain Status: Acute Comment Review of Relevant I have reviewed the following items richar (where applicable) has been applied. Labs Laboratory Tests Test 03/08/20 03:20 White Blood Count 9.5 x10^3/uL (4.0-11.0) Red Blood Count 4.42 x10^6/uL (4.30-5.70) Hemoglobin 15.0 g/dL (13.0-17.5) Hematocrit 43.6 % (39.0-53.0) Mean Corpuscular Volume 99 fL (79-100) Mean Corpuscular Hemoglobin 34 pg (25-35) Mean Corpuscular Hemoglobin Concent 34 g/dL (31-37) Red Cell Distribution Width 12.9 % (11.5-14.5) Platelet Count 240 x10^3/uL (140-400) Neutrophils (%) (Auto) 81 % (31-73) Lymphocytes (%) (Auto) 11 % (24-48) Monocytes (%) (Auto) 8 % (0-9) Eosinophils (%) (Auto) 1 % (0-3) Basophils (%) (Auto) 1 % (0-3) Neutrophils # (Auto) 7.7 x10^3/uL (1.8-7.7) Lymphocytes # (Auto) 1.0 x10^3/uL (1.0-4.8) Monocytes # (Auto) 0.7 x10^3/uL (0.0-1.1) Eosinophils # (Auto) 0.1 x10^3/uL (0.0-0.7) Basophils # (Auto) 0.0 x10^3/uL (0.0-0.2) Laboratory Tests Test 03/08/20 03:20 White Blood Count 9.5 x10^3/uL (4.0-11.0) Red Blood Count 4.42 x10^6/uL (4.30-5.70) Hemoglobin 15.0 g/dL (13.0-17.5) Hematocrit 43.6 % (39.0-53.0) Mean Corpuscular Volume 99 fL (79-100) Mean Corpuscular Hemoglobin 34 pg (25-35) Mean Corpuscular Hemoglobin Concent 34 g/dL (31-37) Red Cell Distribution Width 12.9 % (11.5-14.5) Platelet Count 240 x10^3/uL (140-400) Neutrophils (%) (Auto) 81 % (31-73) Lymphocytes (%) (Auto) 11 % (24-48) Monocytes (%) (Auto) 8 % (0-9) Eosinophils (%) (Auto) 1 % (0-3) Basophils (%) (Auto) 1 % (0-3) Neutrophils # (Auto) 7.7 x10^3/uL (1.8-7.7) Lymphocytes # (Auto) 1.0 x10^3/uL (1.0-4.8) Monocytes # (Auto) 0.7 x10^3/uL (0.0-1.1) Eosinophils # (Auto) 0.1 x10^3/uL (0.0-0.7) Basophils # (Auto) 0.0 x10^3/uL (0.0-0.2) Microbiology 03/05/20 Urine Culture - Final, Complete Medications Current Medications Morphine Sulfate (Morphine Sulfate) 4 mg PRN Q15MIN PRN IV/SQ PAIN GREATER THAN 3/10 Last administered on 03/05/20at 20:22; Start 03/05/20 at 19:45; Stop 03/06/20 at 11:45; Status DC Sodium Chloride 1,000 ml @ 1,000 mls/hr Q1H IV Last administered on 03/05/20at 20:22; Start 03/05/20 at 19:33; Stop 03/05/20 at 20:32; Status DC Ondansetron HCl (Zofran) 4 mg 1X ONCE IVP Last administered on 03/05/20at 20:20; Start 03/05/20 at 19:45; Stop 03/05/20 at 19:47; Status DC Iohexol (Omnipaque 300 Mg/ml) 75 ml 1X ONCE IV Last administered on 03/05/20at 20:15; Start 03/05/20 at 20:15; Stop 03/05/20 at 20:19; Status DC Info (CONTRAST GIVEN -- Rx MONITORING) 1 each PRN DAILY PRN MC SEE COMMENTS; Start 03/05/20 at 20:30; Stop 03/07/20 at 20:29; Status DC Ondansetron HCl (Zofran) 4 mg PRN Q8HRS PRN IV NAUSEA/VOMITING; Start 03/05/20 at 22:30; Stop 03/06/20 at 22:29; Status DC Fentanyl Citrate (Fentanyl 2ml Vial) 50 mcg PRN Q2HRS PRN IV PAIN; Start at 22:30; Stop 03/06/20 at 22:29; Status DC Sodium Chloride 1,000 ml @ 100 mls/hr Q10H IV Last administered on 03/06/20at 20:24; Start 03/05/20 at 22:30; Stop 03/06/20 at 22:29; Status DC Polyethylene Glycol (miraLAX PACKET) 34 gm 1X ONCE PO Last administered on 03/06/20at 08:15; Start 03/06/20 at 07:45; Stop 03/06/20 at 07:46; Status DC Ringer's Solution 1,000 ml @ 30 mls/hr Q24H IV Last administered on 03/07/20at 10:07; Start 03/07/20 at 07:00; Stop 03/07/20 at 12:59; Status DC Prochlorperazine Edisylate (Compazine) 5 mg PACU PRN PRN IV NAUSEA, MRX1; Start 03/07/20 at 07:00; Stop 03/07/20 at 13:51; Status DC Lorazepam (Ativan Inj) 1 mg PRN Q6HRS PRN IVP ANXIETY / AGITATION Last administered on 03/07/20at 13:46; Start 03/06/20 at 18:30 Ondansetron HCl (Zofran) 4 mg STK-MED ONCE .ROUTE ; Start 03/07/20 at 07:08; Stop 03/07/20 at 07:08; Status DC Propofol (Diprivan) 200 mg STK-MED ONCE IV ; Start 03/07/20 at 07:08; Stop 03/07/20 at 07:08; Status DC Lidocaine HCl (Lidocaine Pf 2% Vial) 5 ml STK-MED ONCE .ROUTE ; Start 03/07/20 at 07:08; Stop 03/07/20 at 07:08; Status DC Dexamethasone Sodium Phosphate (Decadron) 4 mg STK-MED ONCE .ROUTE ; Start 03/07/20 at 07:08; Stop 03/07/20 at 07:08; Status DC Fentanyl Citrate (Fentanyl 2ml Vial) 100 mcg STK-MED ONCE .ROUTE ; Start 03/07/20 at 07:08; Stop 03/07/20 at 07:09; Status DC Rocuronium [place] (Zemuron) 50 mg STK-MED ONCE .ROUTE ; Start 03/07/20 at 07:08; Stop 03/07/20 at 07:09; Status DC Levofloxacin/ Dextrose 100 ml @ As Directed STK-MED ONCE IV ; Start 03/07/20 at 07:45; Stop 03/07/20 at 07:46; Status DC Fentanyl Citrate (Fentanyl 2ml Vial) 100 mcg STK-MED ONCE .ROUTE ; Start 03/07/20 at 08:12; Stop 03/07/20 at 08:12; Status DC Glycopyrrolate (Robinul) 1 mg STK-MED ONCE .ROUTE ; Start 03/07/20 at 08:18; Stop 03/07/20 at 08:18; Status DC Neostigmine [place] (Neostigmine Methylsulfate) 5 mg STK-MED ONCE .ROUTE ; Start 03/07/20 at 08:18; Stop 03/07/20 at 08:19; Status DC Rocuronium [place] (Zemuron) 50 mg STK-MED ONCE .ROUTE ; Start 03/07/20 at 08:26; Stop 03/07/20 at 08:26; Status DC Phenylephrine HCl (PHENYLEPHRINE in 0.9% NACL PF) 1 mg STK-MED ONCE IV ; Start 03/07/20 at 08:46; Stop 03/07/20 at 08:46; Status DC Bupivacaine HCl/ Epinephrine Bitart (Sensorcaine-Epi 0.25%-1:219276 Mpf) 30 ml STK-MED ONCE .ROUTE Last administered on 03/07/20at 08:11; Start 03/07/20 at 09:33; Stop 03/07/20 at 09:33; Status DC Fentanyl Citrate (Fentanyl 2ml Vial) 100 mcg STK-MED ONCE .ROUTE ; Start 03/07/20 at 09:37; Stop 03/07/20 at 09:37; Status DC Sodium Chloride (Normal Saline Flush) 3 ml QSHIFT PRN IV AFTER MEDS AND BLOOD DRAWS; Start 03/07/20 at 09:45 Morphine Sulfate (Morphine Sulfate) 2 mg PRN Q3HRS PRN IV PAIN Last administered on 03/07/20at 12:10; Start 03/07/20 at 09:45 Oxycodone/ Acetaminophen (Percocet 5/325) 1 tab PRN Q4HRS PRN PO MILD PAIN, 1ST CHOICE Last administered on 03/07/20at 20:45; Start 03/07/20 at 09:45 Oxycodone/ Acetaminophen (Percocet 5/325) 2 tab PRN Q4HRS PRN PO MODERATE PAIN, SEVERE PAIN; Start 03/07/20 at 09:45 Ketorolac Tromethamine (Toradol 15mg Vial) 15 mg Q6HRS IV Last administered on 03/08/20at 05:46; Start 03/07/20 at 12:00; Stop 03/09/20 at 11:59 Ondansetron HCl (Zofran) 4 mg PRN Q6HRS PRN IV NAUSEA, 1ST CHOICE Last administered on 03/07/20at 15:12; Start 03/07/20 at 09:45 Dextrose/Lactated Ringer's 1,000 ml @ 75 mls/hr [id number] IV ; Start 03/07/20 at 09:44; Stop 03/07/20 at 12:59; Status DC Ringer's Solution 1,000 ml @ 30 mls/hr Q24H IV Last administered on 03/07/20at 09:30; Start 03/07/20 at 10:02; Stop 03/07/20 at 12:59; Status DC Ketorolac Tromethamine (Toradol 30mg Vial) 30 mg STK-MED ONCE .ROUTE ; Start 03/07/20 at 10:07; Stop 03/07/20 at 10:08; Status DC Hydromorphone HCl (Dilaudid) 0.5 mg PRN Q10MIN PRN IV Moderate to severe pain Last administered on 03/07/20at 10:41; Start 03/07/20 at 10:15; Stop 03/07/20 at 13:22; Status DC Hydromorphone HCl (Dilaudid) 2 mg STK-MED ONCE .ROUTE ; Start 03/07/20 at 10:22; Stop 03/07/20 at 10:22; Status DC Morphine Sulfate (Morphine Sulfate) 4 mg 1X ONCE IV Last administered on at 15:12; Start 03/07/20 at 15:00; Stop 03/07/20 at 15:01; Status DC Sodium Chloride 1,000 ml @ 100 mls/hr Q10H IV Last administered on 03/08/20at 08:32; Start 03/07/20 at 16:00 Morphine Sulfate (Morphine Sulfate) 4 mg 1X ONCE IV Last administered on 03/07/20at 19:44; Start 03/07/20 at 19:30; Stop 03/07/20 at 19:31; Status DC Hydromorphone HCl (Dilaudid) 0.5 mg PRN Q4HRS PRN IVP MODERATE PAIN; Start 03/08/20 at 08:15 Hydromorphone HCl (Dilaudid) 1 mg PRN Q4HRS PRN IV SEVERE PAIN Last administered on 03/08/20at 08:31; Start 03/08/20 at 08:15 Active Scripts Active Reported Celexa (Citalopram Hydrobromide) 20 Mg Tablet 1 Tab PO DAILY Zyrtec (Cetirizine Hcl) 10 Mg Tablet 1 Tab PO DAILY Vitals/I & O Vital Sign - Last 24 Hours 03/07/20 03/07/20 03/07/20 03/07/20 11:45 12:00 12:10 12:30 Temp 98.6 98.6 Pulse 91 105 92 Resp 20 20 20 20 B/P (MAP) 125/86 (99) 142/83 (102) 140/92 (108) Pulse Ox 92 92 92 O2 Delivery Room Air Room Air Room Air Room Air 03/07/20 03/07/20 03/07/20 03/07/20 12:40 13:00 13:30 14:22 Temp 98.7 98.7 Pulse 94 91 92 Resp 20 20 20 20 B/P (MAP) 142/95 (111) 140/90 (107) 139/94 (109) Pulse Ox 93 92 90 O2 Delivery Room Air Room Air Room Air Room Air 03/07/20 03/07/20 03/07/20 03/07/20 15:12 15:42 19:00 19:44 Temp 100.2 100.2 Pulse 97 Resp 20 20 20 B/P (MAP) 142/95 (111) Pulse Ox 92 O2 Delivery Room Air Room Air Room Air Room Air 03/07/20 03/07/20 03/07/20 03/07/20 20:05 20:15 20:45 21:45 O2 Delivery Room Air Room Air Room Air Room Air 03/07/20 03/08/20 03/08/20 03/08/20 23:00 03:11 07:00 08:00 Temp 100.2 98.9 98.0 100.2 98.9 98.0 Pulse 99 84 87 Resp 20 18 18 B/P (MAP) 141/92 (108) 143/94 (110) 142/89 (106) Pulse Ox 91 94 96 O2 Delivery Room Air Room Air Room Air Room Air 03/08/20 03/08/20 03/08/20 08:31 09:01 11:00 Temp 98.1 98.1 Pulse 88 Resp 19 B/P (MAP) 139/89 (106) Pulse Ox 94 O2 Delivery Room Air Room Air Room Air Intake and Output 03/07/20 03/07/20 03/08/20 15:00 23:00 07:00 Intake Total 1600 ml 30 ml 90 ml Output Total 100 ml 1525 ml 800 ml Balance 1500 ml -1495 ml -710 ml Justicifation of Admission Dx: Justifications for Admission: Justification of Admission Dx: Yes ANDRESSA DONALDSON MD Mar 08, 2020 11:28
[2020-03-08 15:00] VITALS: BP 147/96
[2020-03-08 19:00] VITALS: BP 135/88
[2020-03-08 23:00] VITALS: BP 145/90
[2020-03-09] VITALS (7 sets, daily range): BP systolic 126–156; BP diastolic 78–98
[2020-03-09] MEDS: KETOROLAC 15 MG/ML VIAL. IV SCH ×2 (00:15→06:15)
[2020-03-09] MEDS: IV NORMAL SALINE 1000ML BAG 1,000 ML IV SCH (05:34)
[2020-03-09] MEDS: HYDROmorphone 2 MG/ML VIAL IV PRN ×2 (05:37→22:17)
[2020-03-09] MEDS: oxyCODONE/APAP 5/325 1 TAB TABLET PO PRN ×2 (09:20→14:41)
--- NOTE | 2020-03-09 11:09 | PDOC ---
PROGRESS NOTES Chief Complaint Chief Complaint Abdominal pain postop no concerning signs Partial bowel obstruction secondary to hepatic flexure colon mass, awaiting pathology Plan: follow recommendations from surgical coordinator pain management IS further recommendations based on pathology will follow results of CEA ordered by [facility] iam consultant. labs in am History of Present Illness History of Present Illness 08/07: Patient seen postop, tolerated procedure well Operative note as follows Operative Note Date: 03/07/2020 at 937 Preoperative diagnosis: Hepatic flexure colon mass partially obstructing Postoperative diagnosis: Same Procedure: Extended right hemicolectomy with omentectomy Surgeon: Garo Specimen: Extended right colon partial transverse colon and omentum done Dictation: Patient is a 44-year-old gentleman admitted to the hospital with right upper quadrant abdominal pain a CT scan showed a apple core lesion within his hepatic flexure causing partial obstruction. Procedure of colectomy was explained to the patient detail was benefits were also discussed including bleeding infection alternatives to this procedure also discussed with patient who seemed to understand and gave both verbal and written consent to have the procedure performed. Patient was taken to the operating room placed in the supine position general anesthesia was initiated once patient was sleeping intubated his abdomen was prepped and draped usual sterile fashion using ChloraPrep. Midline incision was made from just above the umbilicus to the epigastrium is carried down through the subcutaneous tissues electrocautery right hemostasis down the fascia fascia was opened electrocautery the peritoneum was opened Metzenbaum scissors once the abdomen was entered it was further opened electrocautery. Abdomen was inspected there was a large mass within the colon at the hepatic flexure liver appeared to be normal no masses noted was noted that the omentum was quite studded and very densely here to both the stomach and transverse colon. Attention is returned to the resection mid transverse area where the colon appeared to be normal a window was propagated the mesentery which allowed for a DAVON stapler 75 to staple and transect the distal colon impact LigaSure was used to take down the mesentery was noted that the colon was densely adherent to the omentum this was taken down electrocautery but also very closely adherent to the duodenum on the backside careful dissection was used to peel off the colon from the duodenum there appeared to be no invasion of the duodenum or stomach. This dissection was carried around releasing hepatic flexure with electrocautery down the white line of Toldt on the right side using electrocautery. The terminal ileum was stapled and transected with a DAVON stapler and the right extended colon mesentery was taken off at the root using the impact LigaSure until the main vessel was tied doubly with 0 Vicryl. Specimen was passed off for pathology. Small bowel terminal ileum was brought up to the mid transverse colon a [id number] anastomosis was completed with a DAVON stapler 75 the enterotomy was closed with a running interlocking 3-0 Vicryl and oversewn with 3-0 Vicryl Lembert sutures. Abdomen was irrigated and suctioned dry hemostasis deemed be appropriate and the fascia was closed with a running oh loop PDS. Subcutaneous layer was closed with a 2-0 Vicryl running suture the skin was reapproximated 4-0 subcuticular Monocryl Mastisol Steri-Strips 4 x 4's Medipore tape were applied as dressing. Patient was awakened extubated in the operating room taken to recovery in stable condition all sponge instrument needle counts listed as correct estimated blood loss 60 mL. 03/08: No acute events reported overnight, case discussed with nursing staff patient in no acute distress no complaints during my visit complaining of incisional wound pain 03/09: No new complaints, family at bedside, ambulating well no acute events reported overnight Vitals Vitals Vital Signs Date Time Temp Pulse Resp B/P (MAP) Pulse Ox O2 Delivery O2 Flow Rate FiO2 03/09/20 09:20 19 93 Room Air 03/09/20 07:00 99.8 105 142/87 (105) 99.8 Physical Exam General: Alert, Oriented X3, Cooperative, mild distress Heart: Regular rate, Normal S1, Normal S2 Abdomen: Soft, Other (Mild incisional tenderness wounds clean dry and intact) Extremities: No clubbing, No cyanosis Skin: No significant lesion Assessment and Plan Assessmemt and Plan Problems Medical Problems: (1) Right lower quadrant abdominal pain Status: Acute Comment Review of Relevant I have reviewed the following items richar (where applicable) has been applied. Labs Laboratory Tests Test 03/08/20 03:20 White Blood Count 9.5 x10^3/uL (4.0-11.0) Red Blood Count 4.42 x10^6/uL (4.30-5.70) Hemoglobin 15.0 g/dL (13.0-17.5) Hematocrit 43.6 % (39.0-53.0) Mean Corpuscular Volume 99 fL (79-100) Mean Corpuscular Hemoglobin 34 pg (25-35) Mean Corpuscular Hemoglobin Concent 34 g/dL (31-37) Red Cell Distribution Width 12.9 % (11.5-14.5) Platelet Count 240 x10^3/uL (140-400) Neutrophils (%) (Auto) 81 % (31-73) Lymphocytes (%) (Auto) 11 % (24-48) Monocytes (%) (Auto) 8 % (0-9) Eosinophils (%) (Auto) 1 % (0-3) Basophils (%) (Auto) 1 % (0-3) Neutrophils # (Auto) 7.7 x10^3/uL (1.8-7.7) Lymphocytes # (Auto) 1.0 x10^3/uL (1.0-4.8) Monocytes # (Auto) 0.7 x10^3/uL (0.0-1.1) Eosinophils # (Auto) 0.1 x10^3/uL (0.0-0.7) Basophils # (Auto) 0.0 x10^3/uL (0.0-0.2) Microbiology 03/05/20 Urine Culture - Final, Complete Medications Current Medications Morphine Sulfate (Morphine Sulfate) 4 mg PRN Q15MIN PRN IV/SQ PAIN GREATER THAN 3/10 Last administered on 03/05/20at 20:22; Start 03/05/20 at 19:45; Stop 03/06/20 at 11:45; Status DC Sodium Chloride 1,000 ml @ 1,000 mls/hr Q1H IV Last administered on 03/05/20at 20:22; Start 03/05/20 at 19:33; Stop 03/05/20 at 20:32; Status DC Ondansetron HCl (Zofran) 4 mg 1X ONCE IVP Last administered on 03/05/20at 20:20; Start 03/05/20 at 19:45; Stop 03/05/20 at 19:47; Status DC Iohexol (Omnipaque 300 Mg/ml) 75 ml 1X ONCE IV Last administered on 03/05/20at 20:15; Start 03/05/20 at 20:15; Stop 03/05/20 at 20:19; Status DC Info (CONTRAST GIVEN -- Rx MONITORING) 1 each PRN DAILY PRN MC SEE COMMENTS; Start 03/05/20 at 20:30; Stop 03/07/20 at 20:29; Status DC Ondansetron HCl (Zofran) 4 mg PRN Q8HRS PRN IV NAUSEA/VOMITING; Start 03/05/20 at 22:30; Stop 03/06/20 at 22:29; Status DC Fentanyl Citrate (Fentanyl 2ml Vial) 50 mcg PRN Q2HRS PRN IV PAIN; Start 03/05/20 at 22:30; Stop 03/06/20 at 22:29; Status DC Sodium Chloride 1,000 ml @ 100 mls/hr Q10H IV Last administered on 03/06/20at 20:24; Start 03/05/20 at 22:30; Stop 03/06/20 at 22:29; Status DC Polyethylene Glycol (miraLAX PACKET) 34 gm 1X ONCE PO Last administered on 03/06/20at 08:15; Start 03/06/20 at 07:45; Stop 03/06/20 at 07:46; Status DC Ringer's Solution 1,000 ml @ 30 mls/hr Q24H IV Last administered on 03/07/20at 10:07; Start 03/07/20 at 07:00; Stop 03/07/20 at 12:59; Status DC Prochlorperazine Edisylate (Compazine) 5 mg PACU PRN PRN IV NAUSEA, MRX1; Start 03/07/20 at 07:00; Stop 03/07/20 at 13:51; Status DC Lorazepam (Ativan Inj) 1 mg PRN Q6HRS PRN IVP ANXIETY / AGITATION Last administered on 03/07/20at 13:46; Start 03/06/20 at 18:30 Ondansetron HCl (Zofran) 4 mg STK-MED ONCE .ROUTE ; Start 03/07/20 at 07:08; Stop 03/07/20 at 07:08; Status DC Propofol (Diprivan) 200 mg STK-MED ONCE IV ; Start 03/07/20 at 07:08; Stop 03/07/20 at 07:08; Status DC Lidocaine HCl (Lidocaine Pf 2% Vial) 5 ml STK-MED ONCE .ROUTE ; Start 03/07/20 at 07:08; Stop 03/07/20 at 07:08; Status DC Dexamethasone Sodium Phosphate (Decadron) 4 mg STK-MED ONCE .ROUTE ; Start 03/07/20 at 07:08; Stop 03/07/20 at 07:08; Status DC Fentanyl Citrate (Fentanyl 2ml Vial) 100 mcg STK-MED ONCE .ROUTE ; Start 03/07/20 at 07:08; Stop 03/07/20 at 07:09; Status DC Rocuronium Inglis (Zemuron) 50 mg STK-MED ONCE .ROUTE ; Start 03/07/20 at 07:08; Stop 03/07/20 at 07:09; Status DC Levofloxacin/ Dextrose 100 ml @ As Directed STK-MED ONCE IV ; Start 03/07/20 at 07:45; Stop 03/07/20 at 07:46; Status DC Fentanyl Citrate (Fentanyl 2ml Vial) 100 mcg STK-MED ONCE .ROUTE ; Start 03/07/20 at 08:12; Stop 03/07/20 at 08:12; Status DC Glycopyrrolate (Robinul) 1 mg STK-MED ONCE .ROUTE ; Start 03/07/20 at 08:18; Stop 03/07/20 at 08:18; Status DC Neostigmine Inglis (Neostigmine Methylsulfate) 5 mg STK-MED ONCE .ROUTE ; Start 03/07/20 at 08:18; Stop 03/07/20 at 08:19; Status DC Rocuronium Inglis (Zemuron) 50 mg STK-MED ONCE .ROUTE ; Start 03/07/20 at 08:26; Stop 03/07/20 at 08:26; Status DC Phenylephrine HCl (PHENYLEPHRINE in 0.9% NACL PF) 1 mg STK-MED ONCE IV ; Start 03/07/20 at 08:46; Stop 03/07/20 at 08:46; Status DC Bupivacaine HCl/ Epinephrine Bitart (Sensorcaine-Epi 0.25%-1:[id number] Mpf) 30 ml STK-MED ONCE .ROUTE Last administered on 03/07/20at 08:11; Start 03/07/20 at 09:33; Stop 03/07/20 at 09:33; Status DC Fentanyl Citrate (Fentanyl 2ml Vial) 100 mcg STK-MED ONCE .ROUTE ; Start 03/07/20 at 09:37; Stop 03/07/20 at 09:37; Status DC Sodium Chloride (Normal Saline Flush) 3 ml QSHIFT PRN IV AFTER MEDS AND BLOOD DRAWS; Start 03/07/20 at 09:45 Morphine Sulfate (Morphine Sulfate) 2 mg PRN Q3HRS PRN IV PAIN Last administered on 03/07/20at 12:10; Start 03/07/20 at 09:45 Oxycodone/ Acetaminophen (Percocet 5/325) 1 tab PRN Q4HRS PRN PO MILD PAIN, 1ST CHOICE Last administered on 03/07/20at 20:45; Start 03/07/20 at 09:45 Oxycodone/ Acetaminophen (Percocet 5/325) 2 tab PRN Q4HRS PRN PO MODERATE PAIN, SEVERE PAIN Last administered on 03/09/20at 09:20; Start 03/07/20 at 09:45 Ketorolac Tromethamine (Toradol 15mg Vial) 15 mg Q6HRS IV Last administered on 03/09/20at 06:15; Start 03/07/20 at 12:00; Stop 03/09/20 at 11:59 Ondansetron HCl (Zofran) 4 mg PRN Q6HRS PRN IV NAUSEA, 1ST CHOICE Last administered on 03/07/20at 15:12; Start 03/07/20 at 09:45 Dextrose/Lactated Ringer's 1,000 ml @ 75 mls/hr [id number] IV ; Start 03/07/20 at 09:44; Stop 03/07/20 at 12:59; Status DC Ringer's Solution 1,000 ml @ 30 mls/hr Q24H IV Last administered on 03/07/20at 09:30; Start 03/07/20 at 10:02; Stop 03/07/20 at 12:59; Status DC Ketorolac Tromethamine (Toradol 30mg Vial) 30 mg STK-MED ONCE .ROUTE ; Start 03/07/20 at 10:07; Stop 03/07/20 at 10:08; Status DC Hydromorphone HCl (Dilaudid) 0.5 mg PRN Q10MIN PRN IV Moderate to severe pain Last administered on 03/07/20at 10:41; Start 03/07/20 at 10:15; Stop 03/07/20 at 13:22; Status DC Hydromorphone HCl (Dilaudid) 2 mg STK-MED ONCE .ROUTE ; Start 03/07/20 at 10:22; Stop 03/07/20 at 10:22; Status DC Morphine Sulfate (Morphine Sulfate) 4 mg 1X ONCE IV Last administered on 03/07/20at 15:12; Start 03/07/20 at 15:00; Stop 03/07/20 at 15:01; Status DC Sodium Chloride 1,000 ml @ 100 mls/hr Q10H IV Last administered on 03/09/20at 05:34; Start 03/07/20 at 16:00; Stop 03/09/20 at 07:34; Status DC Morphine Sulfate (Morphine Sulfate) 4 mg 1X ONCE IV Last administered on 03/07/20at 19:44; Start 03/07/20 at 19:30; Stop 03/07/20 at 19:31; Status DC Hydromorphone HCl (Dilaudid) 0.5 mg PRN Q4HRS PRN IVP MODERATE PAIN; Start 03/08/20 at 08:15 Hydromorphone HCl (Dilaudid) 1 mg PRN Q4HRS PRN IV SEVERE PAIN Last administered on 03/09/20at 05:37; Start 03/08/20 at 08:15 Active Scripts Active Reported Celexa (Citalopram Hydrobromide) 20 Mg Tablet 1 Tab PO DAILY Zyrtec (Cetirizine Hcl) 10 Mg Tablet 1 Tab PO DAILY Vitals/I & O Vital Sign - Last 24 Hours 03/08/20 03/08/20 03/08/20 03/08/20 13:20 13:50 15:00 17:16 Temp 98.5 98.5 Pulse 97 Resp 19 B/P (MAP) 147/96 (113) Pulse Ox 94 O2 Delivery Room Air Room Air Room Air Room Air 03/08/20 03/08/20 03/08/20 03/08/20 17:46 19:00 19:45 22:55 Temp 98.7 98.7 Pulse 100 Resp 18 2 B/P (MAP) 135/88 (104) Pulse Ox 95 O2 Delivery Room Air Room Air Room Air Room Air 03/08/20 03/08/20 03/09/20 7/28/20 23:00 23:25 03:00 05:37 Temp 99.2 98.7 99.2 98.7 Pulse 87 84 Resp 18 20 18 20 B/P (MAP) 145/90 (108) 129/91 (104) Pulse Ox 96 95 O2 Delivery Room Air Room Air Room Air Room Air 03/09/20 03/09/20 03/09/20 03/09/20 06:07 07:00 08:00 09:20 Temp 99.8 99.8 Pulse 105 Resp 20 18 19 B/P (MAP) 142/87 (105) Pulse Ox 93 93 O2 Delivery Room Air Room Air Room Air Room Air Intake and Output 03/08/20 03/08/20 03/09/20 15:00 23:00 07:00 Intake Total 2640 ml Output Total 1175 ml Balance 1465 ml Justicifation of Admission Dx: Justifications for Admission: Justification of Admission Dx: Yes ANDRESSA DONALDSON MD Mar 09, 2020 11:09
--- NOTE | 2020-03-09 12:40 | PDOC ---
GI PROGRESS NOTES Date Date/Time DATE: 03/09/20 TIME: 12:39 Subjective Subjective Still recovering postop. No significant changes. Awaiting pathology report Objective Vitals Vital Signs Date Time Temp Pulse Resp B/P (MAP) Pulse Ox O2 Delivery O2 Flow Rate FiO2 03/09/20 11:00 99.6 104 18 126/79 (95) 94 Room Air 99.6 03/09/20 09:20 19 93 Room Air 03/09/20 08:00 Room Air 03/09/20 07:00 99.8 105 18 142/87 (105) 93 Room Air 99.8 03/09/20 06:07 20 Room Air 03/09/20 05:37 20 Room Air 03/09/20 03:00 98.7 84 18 129/91 (104) 95 Room Air 98.7 03/08/20 23:25 20 Room Air 03/08/20 23:00 99.2 87 18 145/90 (108) 96 Room Air 99.2 03/08/20 22:55 2 Room Air 03/08/20 19:45 Room Air 03/08/20 19:00 98.7 100 18 135/88 (104) 95 Room Air 98.7 03/08/20 17:46 Room Air 03/08/20 17:16 Room Air 03/08/20 15:00 98.5 97 19 147/96 (113) 94 Room Air 98.5 03/08/20 13:50 Room Air 03/08/20 13:20 Room Air Physical Exam Physical Exam Alert Chest clear Heart regular rate and rhythm Abdomen soft, tender from surgery, few bowel sounds . 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 Await pathology to determine the type of tumor and extent of involvement Plan Plan Continue postop care. Await pathology report. Justicifation of Admission Dx: Justifications for Admission: Justification of Admission Dx: Yes BEATRIZ CRONIN MD Mar 09, 2020 12:40
--- NOTE | 2020-03-09 13:09 | PDOC ---
SURGICAL PROGRESS NOTE Subjective Patient doing well minimal pain tolerating clear liquid diet passing flatus no stool Vital Signs Vital Signs Date Time Temp Pulse Resp B/P (MAP) Pulse Ox O2 Delivery O2 Flow Rate FiO2 03/09/20 11:00 99.6 104 18 126/79 (95) 94 Room Air 99.6 I&O Intake and Output 03/09/20 07:00 Intake Total 2640 ml Output Total 1175 ml Balance 1465 ml Intake Oral 240 ml IV Total 1200 ml Other 1200 ml Output Urine Total 1175 ml # Voids 1 PATIENT HAS A CONNELLY: No General: Alert, Oriented X3, Cooperative, mild distress Abdomen: Normal bowel sounds, Soft, Other (Mild incisional tenderness wound clean dry and intact) Labs Laboratory Tests Test 03/08/20 03:20 White Blood Count 9.5 x10^3/uL (4.0-11.0) Red Blood Count 4.42 x10^6/uL (4.30-5.70) Hemoglobin 15.0 g/dL (13.0-17.5) Hematocrit 43.6 % (39.0-53.0) Mean Corpuscular Volume 99 fL (79-100) Mean Corpuscular Hemoglobin 34 pg (25-35) Mean Corpuscular Hemoglobin Concent 34 g/dL (31-37) Red Cell Distribution Width 12.9 % (11.5-14.5) Platelet Count 240 x10^3/uL (140-400) Neutrophils (%) (Auto) 81 % (31-73) Lymphocytes (%) (Auto) 11 % (24-48) Monocytes (%) (Auto) 8 % (0-9) Eosinophils (%) (Auto) 1 % (0-3) Basophils (%) (Auto) 1 % (0-3) Neutrophils # (Auto) 7.7 x10^3/uL (1.8-7.7) Lymphocytes # (Auto) 1.0 x10^3/uL (1.0-4.8) Monocytes # (Auto) 0.7 x10^3/uL (0.0-1.1) Eosinophils # (Auto) 0.1 x10^3/uL (0.0-0.7) Basophils # (Auto) 0.0 x10^3/uL (0.0-0.2) Problem List Problems Medical Problems: (1) Right lower quadrant abdominal pain Status: Acute Assessment/Plan Status post right colon resection for obstructing colon mass Awaiting return of bowel function to advance diet Justicifation of Admission Dx: Justifications for Admission: Justification of Admission Dx: Yes KATE GARNER MD Mar 09, 2020 13:08
--- NOTE | 2020-03-09 13:58 | NUR ---
SW following. Discussed with RN, pt on clear liquid diet - still awaiting return of bowel function. SW will continue to follow.
[2020-03-09] MEDS ORDERED: ERTAPENEM 0.5 GM in IV NORMAL SALINE 50ML 50 ML IV SCH (16:30)
[2020-03-09] MEDS: ACETAMINOPHEN 325 MG TABLET. PO PRN ×2 (16:34→23:07)
[2020-03-09] MEDS: CIPROFLOXACIN 400MG PREMIX 200 ML IV SCH (17:27)
--- NOTE | 2020-03-09 18:26 | NUR ---
The patient developed a fever, 100.8F this afternoon, updated Dr. Bennett, noted orders for blood culture and antibiotics. We will continue to monitor.
--- NOTE | 2020-03-09 20:45 | NUR ---
Blood culture x2 ordered due to elevated temp>100.5.
--- NOTE | 2020-03-09 22:15 | NUR ---
Sepsis screen positive. ICU notified. Order for lactic acid placed.
--- NOTE | 2020-03-09 22:34 | NUR ---
Remains febrile Temp 101.1. Will give Tylenol as ordered. Will continue to monitor. Continuing IV antibiotics. Patient is alert and oriented x4.
--- NOTE | 2020-03-09 22:55 | NUR ---
Lactic acid 1.3 ICU notified. Will continue to monitor.
[2020-03-10] VITALS (7 sets, daily range): BP systolic 126–141; BP diastolic 79–94
[2020-03-10] MEDS: HYDROmorphone 2 MG/ML VIAL IV PRN ×4 (02:24→16:14)
--- NOTE | 2020-03-10 03:00 | NUR ---
Patient continues to be febrile. Temp 102.4 orally. Continue current plan of care. IV antibiotics, Tylenol as ordered. Patient remains alert and oriented x4. Encouraging patient to drink plenty of fluids. Will continue to monitor.
[2020-03-10 06:41] LABS: BASO % 0 % (0-3); EOS % 1 % (0-3); HEMATOCRIT 43.4 % (39.0-53.0); HEMOGLOBIN 14.9 g/dL (13.0-17.5); LYMPH # 0.2 x10^3/uL (1.0-4.8); LYMPH % 8 % (24-48); MEAN CORPUSCULAR HEMOGLOBIN 34 pg (25-35); MEAN CORPUSCULAR HGB CONC 34 g/dL (31-37); MEAN CORPUSCULAR VOLUME 98 fL (79-100); MONO # 0.5 x10^3/uL (0.0-1.1); MONO % 16 % (0-9); NEUT # 2.1 x10^3/uL (1.8-7.7); NEUT % 74 % (31-73); PLATELET COUNT 215 x10^3/uL (140-400); RED BLOOD COUNT 4.45 x10^6/uL (4.30-5.70); RED CELL DISTRIBUTION WIDTH 12.9 % (11.5-14.5); WHITE BLOOD COUNT 2.9 x10^3/uL (4.0-11.0)
[2020-03-10 07:05] LABS: CALCIUM 8.5 mg/dL (8.5-10.1); GFR 81.2; POTASSIUM 3.6 mmol/L (3.5-5.1)
[2020-03-10 08:42] LABS: % ATYL 4 % (0-0); % BANDS 51 % (0-9); % EOS 2 % (0-5); % LYMPHS 7 % (24-48); % METAS 4 % (0-0); % MONOS 23 % (0-10); % MYELOS 1 % (0-0); % SEGS 8 % (35-66)
[2020-03-10 08:44] LABS: PLT ESTIMATE ADEQUATE (ADEQUATE); TOXIC GRANULATION SLIGHT
[2020-03-10] MEDS: CIPROFLOXACIN 400MG PREMIX 200 ML IV SCH ×2 (09:23→20:56)
--- NOTE | 2020-03-10 10:56 | NUR ---
SW following. Discussed with RN, pt had a BM, however had fevers throughout the night. Pt on clear liquid diet, will be here another 24 hours or so. MONICA will continue to follow.
--- NOTE | 2020-03-10 12:21 | PDOC ---
SURGICAL PROGRESS NOTE Subjective Patient states he had some fever chills earlier today. Tolerating clear liquids having bowel movements Vital Signs Vital Signs Date Time Temp Pulse Resp B/P (MAP) Pulse Ox O2 Delivery O2 Flow Rate FiO2 03/10/20 12:05 Room Air 03/10/20 11:13 99.4 103 20 126/86 (99) 92 99.4 I&O Intake and Output 03/10/20 07:00 Intake Total 940 ml Output Total 400 ml Balance 540 ml Intake Oral 940 ml Output Urine Total 400 ml # Voids 2 # Bowel Movements 1 PATIENT HAS A CONNELLY: No General: Alert, Oriented X3, Cooperative, mild distress Abdomen: Normal bowel sounds, Soft, Other (Incisional tenderness wounds clean dry and intact) Labs Laboratory Tests Test 03/09/20 22:55 03/10/20 05:20 Lactic Acid Level 1.3 mmol/L (0.4-2.0) White Blood Count 2.9 x10^3/uL (4.0-11.0) Red Blood Count 4.45 x10^6/uL (4.30-5.70) Hemoglobin 14.9 g/dL (13.0-17.5) Hematocrit 43.4 % (39.0-53.0) Mean Corpuscular Volume 98 fL (79-100) Mean Corpuscular Hemoglobin 34 pg (25-35) Mean Corpuscular Hemoglobin Concent 34 g/dL (31-37) Red Cell Distribution Width 12.9 % (11.5-14.5) Platelet Count 215 x10^3/uL (140-400) Neutrophils (%) (Auto) 74 % (31-73) Lymphocytes (%) (Auto) 8 % (24-48) Monocytes (%) (Auto) 16 % (0-9) Eosinophils (%) (Auto) 1 % (0-3) Basophils (%) (Auto) 0 % (0-3) Neutrophils # (Auto) 2.1 x10^3/uL (1.8-7.7) Lymphocytes # (Auto) 0.2 x10^3/uL (1.0-4.8) Monocytes # (Auto) 0.5 x10^3/uL (0.0-1.1) Eosinophils # (Auto) 0.0 x10^3/uL (0.0-0.7) Basophils # (Auto) 0.0 x10^3/uL (0.0-0.2) Segmented Neutrophils % 8 % (35-66) Band Neutrophils % 51 % (0-9) Lymphocytes % 7 % (24-48) Atypical Lymphocytes % (Manual) 4 % (0-0) Monocytes % 23 % (0-10) Eosinophils % 2 % (0-5) Metamyelocytes % 4 % (0-0) Myelocytes % 1 % (0-0) Toxic Granulation Slight Platelet Estimate Adequate (ADEQUATE) Sodium Level 138 mmol/L (136-145) Potassium Level 3.6 mmol/L (3.5-5.1) Chloride Level 103 mmol/L (98-107) Carbon Dioxide Level 25 mmol/L (21-32) Anion Gap 10 (6-14) Blood Urea Nitrogen 10 mg/dL (8-26) Creatinine 1.0 mg/dL (0.7-1.3) Estimated GFR (Cockcroft-Gault) 81.2 Glucose Level 140 mg/dL (70-99) Calcium Level 8.5 mg/dL (8.5-10.1) Laboratory Tests Test 03/09/20 22:55 03/10/20 05:20 Lactic Acid Level 1.3 mmol/L (0.4-2.0) White Blood Count 2.9 x10^3/uL (4.0-11.0) Red Blood Count 4.45 x10^6/uL (4.30-5.70) Hemoglobin 14.9 g/dL (13.0-17.5) Hematocrit 43.4 % (39.0-53.0) Mean Corpuscular Volume 98 fL (79-100) Mean Corpuscular Hemoglobin 34 pg (25-35) Mean Corpuscular Hemoglobin Concent 34 g/dL (31-37) Red Cell Distribution Width 12.9 % (11.5-14.5) Platelet Count 215 x10^3/uL (140-400) Neutrophils (%) (Auto) 74 % (31-73) Lymphocytes (%) (Auto) 8 % (24-48) Monocytes (%) (Auto) 16 % (0-9) Eosinophils (%) (Auto) 1 % (0-3) Basophils (%) (Auto) 0 % (0-3) Neutrophils # (Auto) 2.1 x10^3/uL (1.8-7.7) Lymphocytes # (Auto) 0.2 x10^3/uL (1.0-4.8) Monocytes # (Auto) 0.5 x10^3/uL (0.0-1.1) Eosinophils # (Auto) 0.0 x10^3/uL (0.0-0.7) Basophils # (Auto) 0.0 x10^3/uL (0.0-0.2) Segmented Neutrophils % 8 % (35-66) Band Neutrophils % 51 % (0-9) Lymphocytes % 7 % (24-48) Atypical Lymphocytes % (Manual) 4 % (0-0) Monocytes % 23 % (0-10) Eosinophils % 2 % (0-5) Metamyelocytes % 4 % (0-0) Myelocytes % 1 % (0-0) Toxic Granulation Slight Platelet Estimate Adequate (ADEQUATE) Sodium Level 138 mmol/L (136-145) Potassium Level 3.6 mmol/L (3.5-5.1) Chloride Level 103 mmol/L (98-107) Carbon Dioxide Level 25 mmol/L (21-32) Anion Gap 10 (6-14) Blood Urea Nitrogen 10 mg/dL (8-26) Creatinine 1.0 mg/dL (0.7-1.3) Estimated GFR (Cockcroft-Gault) 81.2 Glucose Level 140 mg/dL (70-99) Calcium Level 8.5 mg/dL (8.5-10.1) Problem List Problems Medical Problems: (1) Right lower quadrant abdominal pain Status: Acute Assessment/Plan Status post right colon resection. Low-grade fever blood cultures taken Increase pulmonary toilet incentive spirometer We will advance diet to full liquids Justicifation of Admission Dx: Justifications for Admission: Justification of Admission Dx: Yes KATE GARNER MD Mar 10, 2020 12:21
--- NOTE | 2020-03-10 13:38 | PDOC ---
PROGRESS NOTES Chief Complaint Chief Complaint Abdominal pain postop no concerning signs Partial bowel obstruction secondary to hepatic flexure colon mass, awaiting pathology sepsis pain management IS further recommendations based on pathology will follow results of CEA ordered by automotive internet sales consultant. labs in am History of Present Illness History of Present Illness 03/10, fever last night, culture taken and abx started pain better, still hot, advance diet to full liquid, OOB to chair, Operative Note Date: 03/07/2020 at 937 Preoperative diagnosis: Hepatic flexure colon mass partially obstructing Postoperative diagnosis: Same Procedure: Extended right hemicolectomy with omentectomy Surgeon: Garo Specimen: Extended right colon partial transverse colon and omentum done Dictation: Patient is a 44-year-old gentleman admitted to the hospital with right upper quadrant abdominal pain a CT scan showed a apple core lesion within his hepatic flexure causing partial obstruction. Procedure of colectomy was explained to the patient detail was benefits were also discussed including bleeding infection alternatives to this procedure also discussed with patient who seemed to understand and gave both verbal and written consent to have the procedure performed. Patient was taken to the operating room placed in the supine position general anesthesia was initiated once patient was sleeping intubated his abdomen was prepped and draped usual sterile fashion using ChloraPrep. Midline incision was made from just above the umbilicus to the epigastrium is carried down through the subcutaneous tissues electrocautery right hemostasis down the fascia fascia was opened electrocautery the peritoneum was opened Metzenbaum scissors once the abdomen was entered it was further opened electrocautery. Abdomen was inspected there was a large mass within the colon at the hepatic flexure liver appeared to be normal no masses noted was noted that the omentum was quite studded and very densely here to both the stomach and transverse colon. Attention is returned to the resection mid transverse area where the colon appeared to be normal a window was propagated the mesentery which allowed for a DAVON stapler 75 to staple and transect the distal colon impact LigaSure was used to take down the mesentery was noted that the colon was densely adherent to the omentum this was taken down electrocautery but also very closely adherent to the duodenum on the backside careful dissection was used to peel off the colon from the duodenum there appeared to be no invasion of the duodenum or stomach. This dissection was carried around releasing hepatic flexure with electrocautery down the white line of [place] on the right side using electrocautery. The terminal ileum was stapled and transected with a DAVON stapler and the right extended colon mesentery was taken off at the root using the impact LigaSure until the main vessel was tied doubly with 0 Vicryl. Specimen was passed off for pathology. Small bowel terminal ileum was brought up to the mid transverse colon a [id number] anastomosis was completed with a DAVON stapler 75 the enterotomy was closed with a running interlocking 3-0 Vicryl and oversewn with 3-0 Vicryl Lembert sutures. Abdomen was irrigated and suctioned dry hemostasis deemed be appropriate and the fascia was closed with a running oh loop PDS. Subcutaneous layer was closed with a 2-0 Vicryl running suture the skin was reapproximated 4-0 subcuticular Monocryl Mastisol Steri-Strips 4 x 4's Medipore tape were applied as dressing. Patient was awakened extubated in the operating room taken to recovery in stable condition all sponge instrument needle counts listed as correct estimated blood loss 60 mL. 03/08: No acute events reported overnight, case discussed with nursing staff patient in no acute distress no complaints during my visit complaining of incisional wound pain 03/09: No new complaints, family at bedside, ambulating well no acute events reported overnight Vitals Vitals Vital Signs Date Time Temp Pulse Resp B/P (MAP) Pulse Ox O2 Delivery O2 Flow Rate FiO2 03/10/20 13:16 Room Air 03/10/20 11:13 99.4 103 20 126/86 (99) 92 99.4 Physical Exam General: Alert, Oriented X3, Cooperative, mild distress Heart: Regular rate, Normal S1, Normal S2 Abdomen: Normal bowel sounds, Soft, Other (Incisional tenderness wounds clean dry and intact) Extremities: No clubbing, No cyanosis Skin: No significant lesion Labs LABS Laboratory Tests Test 03/09/20 22:55 03/10/20 05:20 Lactic Acid Level 1.3 mmol/L (0.4-2.0) White Blood Count 2.9 x10^3/uL (4.0-11.0) Red Blood Count 4.45 x10^6/uL (4.30-5.70) Hemoglobin 14.9 g/dL (13.0-17.5) Hematocrit 43.4 % (39.0-53.0) Mean Corpuscular Volume 98 fL (79-100) Mean Corpuscular Hemoglobin 34 pg (25-35) Mean Corpuscular Hemoglobin Concent 34 g/dL (31-37) Red Cell Distribution Width 12.9 % (11.5-14.5) Platelet Count 215 x10^3/uL (140-400) Neutrophils (%) (Auto) 74 % (31-73) Lymphocytes (%) (Auto) 8 % (24-48) Monocytes (%) (Auto) 16 % (0-9) Eosinophils (%) (Auto) 1 % (0-3) Basophils (%) (Auto) 0 % (0-3) Neutrophils # (Auto) 2.1 x10^3/uL (1.8-7.7) Lymphocytes # (Auto) 0.2 x10^3/uL (1.0-4.8) Monocytes # (Auto) 0.5 x10^3/uL (0.0-1.1) Eosinophils # (Auto) 0.0 x10^3/uL (0.0-0.7) Basophils # (Auto) 0.0 x10^3/uL (0.0-0.2) Segmented Neutrophils % 8 % (35-66) Band Neutrophils % 51 % (0-9) Lymphocytes % 7 % (24-48) Atypical Lymphocytes % (Manual) 4 % (0-0) Monocytes % 23 % (0-10) Eosinophils % 2 % (0-5) Metamyelocytes % 4 % (0-0) Myelocytes % 1 % (0-0) Toxic Granulation Slight Platelet Estimate Adequate (ADEQUATE) Sodium Level 138 mmol/L (136-145) Potassium Level 3.6 mmol/L (3.5-5.1) Chloride Level 103 mmol/L (98-107) Carbon Dioxide Level 25 mmol/L (21-32) Anion Gap 10 (6-14) Blood Urea Nitrogen 10 mg/dL (8-26) Creatinine 1.0 mg/dL (0.7-1.3) Estimated GFR (Cockcroft-Gault) 81.2 Glucose Level 140 mg/dL (70-99) Calcium Level 8.5 mg/dL (8.5-10.1) Assessment and Plan Assessmemt and Plan Problems Medical Problems: (1) Right lower quadrant abdominal pain Status: Acute Comment Review of Relevant I have reviewed the following items richar (where applicable) has been applied. Labs Laboratory Tests Test 03/09/20 22:55 03/10/20 05:20 Lactic Acid Level 1.3 mmol/L (0.4-2.0) White Blood Count 2.9 x10^3/uL (4.0-11.0) Red Blood Count 4.45 x10^6/uL (4.30-5.70) Hemoglobin 14.9 g/dL (13.0-17.5) Hematocrit 43.4 % (39.0-53.0) Mean Corpuscular Volume 98 fL (79-100) Mean Corpuscular Hemoglobin 34 pg (25-35) Mean Corpuscular Hemoglobin Concent 34 g/dL (31-37) Red Cell Distribution Width 12.9 % (11.5-14.5) Platelet Count 215 x10^3/uL (140-400) Neutrophils (%) (Auto) 74 % (31-73) Lymphocytes (%) (Auto) 8 % (24-48) Monocytes (%) (Auto) 16 % (0-9) Eosinophils (%) (Auto) 1 % (0-3) Basophils (%) (Auto) 0 % (0-3) Neutrophils # (Auto) 2.1 x10^3/uL (1.8-7.7) Lymphocytes # (Auto) 0.2 x10^3/uL (1.0-4.8) Monocytes # (Auto) 0.5 x10^3/uL (0.0-1.1) Eosinophils # (Auto) 0.0 x10^3/uL (0.0-0.7) Basophils # (Auto) 0.0 x10^3/uL (0.0-0.2) Segmented Neutrophils % 8 % (35-66) Band Neutrophils % 51 % (0-9) Lymphocytes % 7 % (24-48) Atypical Lymphocytes % (Manual) 4 % (0-0) Monocytes % 23 % (0-10) Eosinophils % 2 % (0-5) Metamyelocytes % 4 % (0-0) Myelocytes % 1 % (0-0) Toxic Granulation Slight Platelet Estimate Adequate (ADEQUATE) Sodium Level 138 mmol/L (136-145) Potassium Level 3.6 mmol/L (3.5-5.1) Chloride Level 103 mmol/L (98-107) Carbon Dioxide Level 25 mmol/L (21-32) Anion Gap 10 (6-14) Blood Urea Nitrogen 10 mg/dL (8-26) Creatinine 1.0 mg/dL (0.7-1.3) Estimated GFR (Cockcroft-Gault) 81.2 Glucose Level 140 mg/dL (70-99) Calcium Level 8.5 mg/dL (8.5-10.1) Laboratory Tests Test 03/09/20 22:55 03/10/20 05:20 Lactic Acid Level 1.3 mmol/L (0.4-2.0) White Blood Count 2.9 x10^3/uL (4.0-11.0) Red Blood Count 4.45 x10^6/uL (4.30-5.70) Hemoglobin 14.9 g/dL (13.0-17.5) Hematocrit 43.4 % (39.0-53.0) Mean Corpuscular Volume 98 fL (79-100) Mean Corpuscular Hemoglobin 34 pg (25-35) Mean Corpuscular Hemoglobin Concent 34 g/dL (31-37) Red Cell Distribution Width 12.9 % (11.5-14.5) Platelet Count 215 x10^3/uL (140-400) Neutrophils (%) (Auto) 74 % (31-73) Lymphocytes (%) (Auto) 8 % (24-48) Monocytes (%) (Auto) 16 % (0-9) Eosinophils (%) (Auto) 1 % (0-3) Basophils (%) (Auto) 0 % (0-3) Neutrophils # (Auto) 2.1 x10^3/uL (1.8-7.7) Lymphocytes # (Auto) 0.2 x10^3/uL (1.0-4.8) Monocytes # (Auto) 0.5 x10^3/uL (0.0-1.1) Eosinophils # (Auto) 0.0 x10^3/uL (0.0-0.7) Basophils # (Auto) 0.0 x10^3/uL (0.0-0.2) Segmented Neutrophils % 8 % (35-66) Band Neutrophils % 51 % (0-9) Lymphocytes % 7 % (24-48) Atypical Lymphocytes % (Manual) 4 % (0-0) Monocytes % 23 % (0-10) Eosinophils % 2 % (0-5) Metamyelocytes % 4 % (0-0) Myelocytes % 1 % (0-0) Toxic Granulation Slight Platelet Estimate Adequate (ADEQUATE) Sodium Level 138 mmol/L (136-145) Potassium Level 3.6 mmol/L (3.5-5.1) Chloride Level 103 mmol/L (98-107) Carbon Dioxide Level 25 mmol/L (21-32) Anion Gap 10 (6-14) Blood Urea Nitrogen 10 mg/dL (8-26) Creatinine 1.0 mg/dL (0.7-1.3) Estimated GFR (Cockcroft-Gault) 81.2 Glucose Level 140 mg/dL (70-99) Calcium Level 8.5 mg/dL (8.5-10.1) Microbiology 03/05/20 Urine Culture - Final, Complete Medications Current Medications Morphine Sulfate (Morphine Sulfate) 4 mg PRN Q15MIN PRN IV/SQ PAIN GREATER THAN 3/10 Last administered on 03/05/20at 20:22; Start 03/05/20 at 19:45; Stop 03/06/20 at 11:45; Status DC Sodium Chloride 1,000 ml @ 1,000 mls/hr Q1H IV Last administered on 03/05/20at 20:22; Start 03/05/20 at 19:33; Stop 03/05/20 at 20:32; Status DC Ondansetron HCl (Zofran) 4 mg 1X ONCE IVP Last administered on 03/05/20at 20:20; Start 03/05/20 at 19:45; Stop 03/05/20 at 19:47; Status DC Iohexol (Omnipaque 300 Mg/ml) 75 ml 1X ONCE IV Last administered on 03/05/20at 20:15; Start 03/05/20 at 20:15; Stop 03/05/20 at 20:19; Status DC Info (CONTRAST GIVEN -- Rx MONITORING) 1 each PRN DAILY PRN MC SEE COMMENTS; Start 03/05/20 at 20:30; Stop 03/07/20 at 20:29; Status DC Ondansetron HCl (Zofran) 4 mg PRN Q8HRS PRN IV NAUSEA/VOMITING; Start 03/05/20 at 22:30; Stop 03/06/20 at 22:29; Status DC Fentanyl Citrate (Fentanyl 2ml Vial) 50 mcg PRN Q2HRS PRN IV PAIN; Start 03/05/20 at 22:30; Stop 03/06/20 at 22:29; Status DC Sodium Chloride 1,000 ml @ 100 mls/hr Q10H IV Last administered on 03/06/20at 20:24; Start 03/05/20 at 22:30; Stop 03/06/20 at 22:29; Status DC Polyethylene Glycol (miraLAX PACKET) 34 gm 1X ONCE PO Last administered on 03/06/20at 08:15; Start 03/06/20 at 07:45; Stop 03/06/20 at 07:46; Status DC Ringer's Solution 1,000 ml @ 30 mls/hr Q24H IV Last administered on 03/07/20at 10:07; Start 03/07/20 at 07:00; Stop 03/07/20 at 12:59; Status DC Prochlorperazine Edisylate (Compazine) 5 mg PACU PRN PRN IV NAUSEA, MRX1; Start 03/07/20 at 07:00; Stop 03/07/20 at 13:51; Status DC Lorazepam (Ativan Inj) 1 mg PRN Q6HRS PRN IVP ANXIETY / AGITATION Last administered on 03/07/20at 13:46; Start 03/06/20 at 18:30 Ondansetron HCl (Zofran) 4 mg STK-MED ONCE .ROUTE ; Start 03/07/20 at 07:08; Stop 03/07/20 at 07:08; Status DC Propofol (Diprivan) 200 mg STK-MED ONCE IV ; Start 03/07/20 at 07:08; Stop 03/07/20 at 07:08; Status DC Lidocaine HCl (Lidocaine Pf 2% Vial) 5 ml STK-MED ONCE .ROUTE ; Start 03/07/20 at 07:08; Stop 03/07/20 at 07:08; Status DC Dexamethasone Sodium Phosphate (Decadron) 4 mg STK-MED ONCE .ROUTE ; Start 02/11 01/30 at 07:08; Stop 03/07/20 at 07:08; Status DC Fentanyl Citrate (Fentanyl 2ml Vial) 100 mcg STK-MED ONCE .ROUTE ; Start 03/07 at 07:08; Stop 03/07/20 at 07:09; Status DC Rocuronium [place] (Zemuron) 50 mg STK-MED ONCE .ROUTE ; Start 03/07/20 at 07:0 8; Stop 03/07/20 at 07:09; Status DC Levofloxacin/ Dextrose 100 ml @ As Directed STK-MED ONCE IV ; Start 03/07/20 at 07:45; Stop 03/07/20 at 07:46; Status DC Fentanyl Citrate (Fentanyl 2ml Vial) 100 mcg STK-MED ONCE .ROUTE ; Start 03/07/20 at 08:12; Stop 03/07/20 at 08:12; Status DC Glycopyrrolate (Robinul) 1 mg STK-MED ONCE .ROUTE ; Start 03/07/20 at 08:18; Stop 03/07/20 at 08:18; Status DC Neostigmine [place] (Neostigmine Methylsulfate) 5 mg STK-MED ONCE .ROUTE ; Start 03/07/20 at 08:18; Stop 03/07/20 at 08:19; Status DC Rocuronium [place] (Zemuron) 50 mg STK-MED ONCE .ROUTE ; Start 03/07/20 at 08:26; Stop 03/07/20 at 08:26; Status DC Phenylephrine HCl (PHENYLEPHRINE in 0.9% NACL PF) 1 mg STK-MED ONCE IV ; Start 03/07/20 at 08:46; Stop 03/07/20 at 08:46; Status DC Bupivacaine HCl/ Epinephrine Bitart (Sensorcaine-Epi 0.25%-1:137938 Mpf) 30 ml STK-MED ONCE .ROUTE Last administered on 03/07/20at 08:11; Start 03/07/20 at 09:33; Stop 03/07/20 at 09:33; Status DC Fentanyl Citrate (Fentanyl 2ml Vial) 100 mcg STK-MED ONCE .ROUTE ; Start 03/07/20 at 09:37; Stop 03/07/20 at 09:37; Status DC Sodium Chloride (Normal Saline Flush) 3 ml QSHIFT PRN IV AFTER MEDS AND BLOOD DRAWS; Start 03/07/20 at 09:45 Morphine Sulfate (Morphine Sulfate) 2 mg PRN Q3HRS PRN IV PAIN Last administered on 03/07/20at 12:10; Start 03/07/20 at 09:45 Oxycodone/ Acetaminophen (Percocet 5/325) 1 tab PRN Q4HRS PRN PO MILD PAIN, 1ST CHOICE Last administered on 03/07/20at 20:45; Start 03/07/20 at 09:45; Stop 03/09/20 at 16:26; Status DC Oxycodone/ Acetaminophen (Percocet 5/325) 2 tab PRN Q4HRS PRN PO MODERATE PAIN, SEVERE PAIN Last administered on 03/09/20at 14:41; Start 03/07/20 at 09:45; Stop 03/09/20 at 16:26; Status DC Ketorolac Tromethamine (Toradol 15mg Vial) 15 mg Q6HRS IV Last administered on 03/09/20at 06:15; Start 03/07/20 at 12:00; Stop 03/09/20 at 11:59; Status DC Ondansetron HCl (Zofran) 4 mg PRN Q6HRS PRN IV NAUSEA, 1ST CHOICE Last administered on 03/07/20at 15:12; Start 03/07/20 at 09:45 Dextrose/Lactated Ringer's 1,000 ml @ 75 mls/hr [id number] IV ; Start 03/07/20 at 09:44; Stop 03/07/20 at 12:59; Status DC Ringer's Solution 1,000 ml @ 30 mls/hr Q24H IV Last administered on 03/07/20at 09:30; Start 03/07/20 at 10:02; Stop 03/07/20 at 12:59; Status DC Ketorolac Tromethamine (Toradol 30mg Vial) 30 mg STK-MED ONCE .ROUTE ; Start 03/07/20 at 10:07; Stop 03/07/20 at 10:08; Status DC Hydromorphone HCl (Dilaudid) 0.5 mg PRN Q10MIN PRN IV Moderate to severe pain Last administered on 03/07/20at 10:41; Start 03/07/20 at 10:15; Stop 03/07/20 at 13:22; Status DC Hydromorphone HCl (Dilaudid) 2 mg STK-MED ONCE .ROUTE ; Start 03/07/20 at 10:22; Stop 03/07/20 at 10:22; Status DC Morphine Sulfate (Morphine Sulfate) 4 mg 1X ONCE IV Last administered on 03/07/20at 15:12; Start 03/07/20 at 15:00; Stop 03/07/20 at 15:01; Status DC Sodium Chloride 1,000 ml @ 100 mls/hr Q10H IV Last administered on 03/09/20at 05:34; Start 03/07/20 at 16:00; Stop 03/09/20 at 07:34; Status DC Morphine Sulfate (Morphine Sulfate) 4 mg 1X ONCE IV Last administered on 03/07/20at 19:44; Start 03/07/20 at 19:30; Stop 03/07/20 at 19:31; Status DC Hydromorphone HCl (Dilaudid) 0.5 mg PRN Q4HRS PRN IVP MODERATE PAIN Last administered on 03/09/20at 18:39; Start 03/08/20 at 08:15 Hydromorphone HCl (Dilaudid) 1 mg PRN Q4HRS PRN IV SEVERE PAIN Last administered on 03/10/20at 12:05; Start 03/08/20 at 08:15 Ertapenem 0.5 gm/ Sodium Chloride 50 ml @ 100 mls/hr DAILY IV ; Start 03/09/20 at 16:30; Status UNV Acetaminophen (Tylenol) 650 mg PRN Q6HRS PRN PO temp or pain Last administered on 03/09/20at 23:07; Start 03/09/20 at 16:30 Ciprofloxacin/ Dextrose 200 ml @ 200 mls/hr Q12HR IV Last administered on at 09:23; Start 03/09/20 at 17:00 Metronidazole 100 ml @ 100 mls/hr Q8HRS IV Last administered on 03/10/20at 05:58; Start 03/09/20 at 17:00 Active Scripts Active Reported Celexa (Citalopram Hydrobromide) 20 Mg Tablet 1 Tab PO DAILY Zyrtec (Cetirizine Hcl) 10 Mg Tablet 1 Tab PO DAILY Vitals/I & O Vital Sign - Last 24 Hours 03/09/20 03/09/20 03/09/20 03/09/20 14:41 15:00 16:01 18:39 Temp 99.4 100.8 99.4 100.8 Pulse 101 125 Resp 18 18 18 17 B/P (MAP) 128/78 (95) 156/98 (117) Pulse Ox 94 96 93 93 O2 Delivery Room Air Room Air Room Air Room Air 03/09/20 03/09/20 03/09/20 03/09/20 19:00 19:09 20:10 22:17 Temp 100.9 100.9 Pulse 113 Resp 18 20 B/P (MAP) 132/87 (102) Pulse Ox 96 93 O2 Delivery Room Air Room Air Room Air 03/09/20 03/09/20 03/10/20 03/10/20 22:34 22:47 02:24 02:54 Temp 101.1 101.1 Pulse 114 Resp 20 B/P (MAP) 139/91 (107) Pulse Ox 91 O2 Delivery Room Air Room Air Room Air Room Air 03/10/20 03/10/20 03/10/20 03/10/20 03:00 04:10 07:00 07:30 Temp 102.4 99.6 99.4 102.4 99.6 99.4 Pulse 127 108 132 Resp 20 B/P (MAP) 141/94 (110) 138/91 (107) 132/90 (104) Pulse Ox 92 91 92 O2 Delivery Room Air Room Air Room Air Room Air 03/10/20 03/10/20 03/10/20 03/10/20 07:31 08:56 11:13 12:05 Temp 99.4 99.4 Pulse 103 Resp 20 B/P (MAP) 126/86 (99) Pulse Ox 92 O2 Delivery Room Air Room Air Room Air 03/10/20 13:16 O2 Delivery Room Air Intake and Output 03/09/20 03/09/20 03/10/20 15:00 23:00 07:00 Intake Total 940 ml Output Total 400 ml 0 ml Balance 940 ml -400 ml 0 ml Justicifation of Admission Dx: Justifications for Admission: Justification of Admission Dx: Yes CHEPE CORDERO MD Mar 10, 2020 13:37
--- NOTE | 2020-03-10 13:41 | PDOC ---
GI PROGRESS NOTES Date Date/Time DATE: 03/10/20 TIME: 13:37 Subjective Subjective bowel movement last night in the middle of the night. Some chills and low- grade fever noted which have resolved. Tolerating liquid diet. Objective Vitals Vital Signs Date Time Temp Pulse Resp B/P (MAP) Pulse Ox O2 Delivery O2 Flow Rate FiO2 03/10/20 13:16 Room Air 03/10/20 12:05 Room Air 03/10/20 11:13 99.4 103 20 126/86 (99) 92 99.4 03/10/20 08:56 Room Air 03/10/20 07:31 Room Air 03/10/20 07:30 Room Air 03/10/20 07:00 99.4 132 20 132/90 (104) 92 Room Air 99.4 03/10/20 04:10 99.6 108 20 138/91 (107) 91 Room Air 99.6 03/10/20 03:00 102.4 127 28 141/94 (110) 92 Room Air 102.4 03/10/20 02:54 20 Room Air 03/10/20 02:24 20 Room Air 03/09/20 22:47 20 Room Air 03/09/20 22:34 101.1 114 22 139/91 (107) 91 Room Air 101.1 03/09/20 22:17 20 Room Air 03/09/20 20:10 Room Air 03/09/20 19:09 18 93 Room Air 03/09/20 19:00 100.9 113 20 132/87 (102) 96 100.9 03/09/20 18:39 17 93 Room Air 03/09/20 16:01 100.8 125 18 156/98 (117) 93 Room Air 100.8 03/09/20 15:00 99.4 101 18 128/78 (95) 96 Room Air 99.4 03/09/20 14:41 18 94 Room Air Labs Labs Pathology: Preliminary results per phone call with Dr. Maravilla. No evidence for cancer. Transmural inflammation noted. Final diagnosis pending. Laboratory Tests Test 03/09/20 22:55 03/10/20 05:20 Lactic Acid Level 1.3 mmol/L (0.4-2.0) White Blood Count 2.9 x10^3/uL (4.0-11.0) Red Blood Count 4.45 x10^6/uL (4.30-5.70) Hemoglobin 14.9 g/dL (13.0-17.5) Hematocrit 43.4 % (39.0-53.0) Mean Corpuscular Volume 98 fL (79-100) Mean Corpuscular Hemoglobin 34 pg (25-35) Mean Corpuscular Hemoglobin Concent 34 g/dL (31-37) Red Cell Distribution Width 12.9 % (11.5-14.5) Platelet Count 215 x10^3/uL (140-400) Neutrophils (%) (Auto) 74 % (31-73) Lymphocytes (%) (Auto) 8 % (24-48) Monocytes (%) (Auto) 16 % (0-9) Eosinophils (%) (Auto) 1 % (0-3) Basophils (%) (Auto) 0 % (0-3) Neutrophils # (Auto) 2.1 x10^3/uL (1.8-7.7) Lymphocytes # (Auto) 0.2 x10^3/uL (1.0-4.8) Monocytes # (Auto) 0.5 x10^3/uL (0.0-1.1) Eosinophils # (Auto) 0.0 x10^3/uL (0.0-0.7) Basophils # (Auto) 0.0 x10^3/uL (0.0-0.2) Segmented Neutrophils % 8 % (35-66) Band Neutrophils % 51 % (0-9) Lymphocytes % 7 % (24-48) Atypical Lymphocytes % (Manual) 4 % (0-0) Monocytes % 23 % (0-10) Eosinophils % 2 % (0-5) Metamyelocytes % 4 % (0-0) Myelocytes % 1 % (0-0) Toxic Granulation Slight Platelet Estimate Adequate (ADEQUATE) Sodium Level 138 mmol/L (136-145) Potassium Level 3.6 mmol/L (3.5-5.1) Chloride Level 103 mmol/L (98-107) Carbon Dioxide Level 25 mmol/L (21-32) Anion Gap 10 (6-14) Blood Urea Nitrogen 10 mg/dL (8-26) Creatinine 1.0 mg/dL (0.7-1.3) Estimated GFR (Cockcroft-Gault) 81.2 Glucose Level 140 mg/dL (70-99) Calcium Level 8.5 mg/dL (8.5-10.1) Physical Exam Physical Exam Alert Chest clear Heart regular rate and rhythm Abdomen soft, tender from surgery, more bowel sounds . 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 I called and talked with Dr. Maravilla in pathology today. Preliminary report suggests NO evidence for colon cancer. The strictured area has transmural inflammation that suggest either focal ischemia or Crohn's disease. Awaiting final pathology opinion.- I reviewed with the patient these results. He again suggests no chronic GI complaints in the past that might support a chronic inflammatory bowel disease diagnosis. Plan Plan Continue postop care. Advance diet per Dr. Pop for discharge soon from GI perspective Will recommend colonoscopy after complete recovery from surgery, likely 6 weeks. We will then determine if any additional tissues have inflammatory bowel changes. Justicifation of Admission Dx: Justifications for Admission: Justification of Admission Dx: Yes BEATRIZ CRONIN MD Mar 10, 2020 13:41
[2020-03-10] MEDS: CITALOPRAM 20 MG TABLET. PO SCH (20:56)
[2020-03-10] MEDS: LACTOBACILLUS RHAMNOSUS GG 1 CAPSULE. PO SCH (20:56)
[2020-03-10] MEDS: oxyCODONE/APAP 7.5/325 1 TAB TABLET PO PRN (22:12)
[2020-03-11 05:03] VITALS: BP 123/81
[2020-03-11 07:00] VITALS: BP 117/82
--- NOTE | 2020-03-11 08:09 | PDOC ---
SURGICAL PROGRESS NOTE Subjective Patient feeling better this morning no chills afebrile tolerating diet Vital Signs Vital Signs Date Time Temp Pulse Resp B/P (MAP) Pulse Ox O2 Delivery O2 Flow Rate FiO2 03/11/20 05:03 98.8 95 20 123/81 (95) 93 Room Air 98.8 I&O Intake and Output 03/11/20 07:00 Intake Total 350 ml Output Total 0 ml Balance 350 ml Intake Oral 350 ml Output Urine Total 0 ml # Voids 2 PATIENT HAS A CONNELLY: No General: Alert, Oriented X3, Cooperative, mild distress Abdomen: Normal bowel sounds, Soft, Other (Mild incisional tenderness wounds clean dry and intact) Labs Laboratory Tests Test 03/09/20 22:55 03/10/20 05:20 Lactic Acid Level 1.3 mmol/L (0.4-2.0) White Blood Count 2.9 x10^3/uL (4.0-11.0) Red Blood Count 4.45 x10^6/uL (4.30-5.70) Hemoglobin 14.9 g/dL (13.0-17.5) Hematocrit 43.4 % (39.0-53.0) Mean Corpuscular Volume 98 fL (79-100) Mean Corpuscular Hemoglobin 34 pg (25-35) Mean Corpuscular Hemoglobin Concent 34 g/dL (31-37) Red Cell Distribution Width 12.9 % (11.5-14.5) Platelet Count 215 x10^3/uL (140-400) Neutrophils (%) (Auto) 74 % (31-73) Lymphocytes (%) (Auto) 8 % (24-48) Monocytes (%) (Auto) 16 % (0-9) Eosinophils (%) (Auto) 1 % (0-3) Basophils (%) (Auto) 0 % (0-3) Neutrophils # (Auto) 2.1 x10^3/uL (1.8-7.7) Lymphocytes # (Auto) 0.2 x10^3/uL (1.0-4.8) Monocytes # (Auto) 0.5 x10^3/uL (0.0-1.1) Eosinophils # (Auto) 0.0 x10^3/uL (0.0-0.7) Basophils # (Auto) 0.0 x10^3/uL (0.0-0.2) Segmented Neutrophils % 8 % (35-66) Band Neutrophils % 51 % (0-9) Lymphocytes % 7 % (24-48) Atypical Lymphocytes % (Manual) 4 % (0-0) Monocytes % 23 % (0-10) Eosinophils % 2 % (0-5) Metamyelocytes % 4 % (0-0) Myelocytes % 1 % (0-0) Toxic Granulation Slight Platelet Estimate Adequate (ADEQUATE) Sodium Level 138 mmol/L (136-145) Potassium Level 3.6 mmol/L (3.5-5.1) Chloride Level 103 mmol/L (98-107) Carbon Dioxide Level 25 mmol/L (21-32) Anion Gap 10 (6-14) Blood Urea Nitrogen 10 mg/dL (8-26) Creatinine 1.0 mg/dL (0.7-1.3) Estimated GFR (Cockcroft-Gault) 81.2 Glucose Level 140 mg/dL (70-99) Calcium Level 8.5 mg/dL (8.5-10.1) Problem List Problems Medical Problems: (1) Right lower quadrant abdominal pain Status: Acute Assessment/Plan Status post right hemicolectomy for obstructing colon mass path pending Advance diet Justicifation of Admission Dx: Justifications for Admission: Justification of Admission Dx: Yes KATE GARNER MD Mar 11, 2020 08:09
[2020-03-11] MEDS: LACTOBACILLUS RHAMNOSUS GG 1 CAPSULE. PO SCH ×2 (08:17→19:57)
[2020-03-11] MEDS: CETIRIZINE HCL 10 MG TABLET. PO SCH (08:17)
[2020-03-11] MEDS: CIPROFLOXACIN 400MG PREMIX 200 ML IV SCH ×2 (08:17→19:58)
[2020-03-11] MEDS: CITALOPRAM 20 MG TABLET. PO SCH (08:17)
[2020-03-11 11:00] VITALS: BP 171/86
--- NOTE | 2020-03-11 11:10 | NUR ---
SW following. Discussed with RN, pt on GI soft diet, still on IV abx (which will likely be changed to PO prior to dc). RN anticipates pt will likely be ready to discharge home tomorrow. SW will continue to follow.
[2020-03-11] MEDS: oxyCODONE/APAP 7.5/325 1 TAB TABLET PO PRN ×2 (12:30→19:57)
--- NOTE | 2020-03-11 13:47 | PDOC ---
GI PROGRESS NOTES Date Date/Time DATE: 03/11/20 TIME: 13:44 Subjective Subjective Patient is improving. Tolerating diet. Objective Vitals Vital Signs Date Time Temp Pulse Resp B/P (MAP) Pulse Ox O2 Delivery O2 Flow Rate FiO2 03/11/20 13:40 16 Room Air 03/11/20 12:30 16 Room Air 03/11/20 11:00 98.9 92 20 171/86 (114) 91 Room Air 98.9 03/11/20 08:00 Room Air 10.0 03/11/20 07:00 98.6 83 20 117/82 (94) 93 Room Air 98.6 03/11/20 05:03 98.8 95 20 123/81 (95) 93 Room Air 98.8 03/10/20 23:12 20 98 Room Air 03/10/20 23:03 99.3 98 18 126/79 (95) 98 Room Air 99.3 03/10/20 22:12 20 91 Room Air 03/10/20 20:00 Room Air 03/10/20 19:00 99.1 95 20 128/84 (99) 91 Room Air 99.1 03/10/20 17:10 Room Air 03/10/20 16:14 Room Air 03/10/20 16:05 Room Air 03/10/20 15:00 99.1 114 20 132/94 (107) 92 Room Air 99.1 Physical Exam Physical Exam Alert Chest clear Assessment Assessment 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 after Dr. 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 The appearance is atypical, with strictured area with transmural inflammation - initially he thought it suggested either focal ischemia or Crohn's disease. However these new stains are supporting poorly differentiated cancer. I spoke with the patient today and told him the news. We are still awaiting final pathology opinion.- Plan Plan Continue postop care. Advance diet per Dr. Wyman-tarik for discharge soon from GI perspective Will recommend colonoscopy after complete recovery from surgery, likely 6 weeks. We will then determine if any additional tissues have inflammatory bowel changes. Justicifation of Admission Dx: Justifications for Admission: Justification of Admission Dx: Yes EAKER,BEATRIZ Y MD Mar 11, 2020 13:47
[2020-03-11 15:00] VITALS: BP 131/69
[2020-03-11 19:43] VITALS: BP 126/90
[2020-03-11 23:36] VITALS: BP 133/89
[2020-03-12] MEDS: oxyCODONE/APAP 7.5/325 1 TAB TABLET PO PRN (02:39)
[2020-03-12 03:28] VITALS: BP 137/93
[2020-03-12 07:00] VITALS: BP 132/87
[2020-03-12] MEDS: CIPROFLOXACIN 400MG PREMIX 200 ML IV SCH (07:49)
[2020-03-12] MEDS: CETIRIZINE HCL 10 MG TABLET. PO SCH (09:28)
[2020-03-12] MEDS: LACTOBACILLUS RHAMNOSUS GG 1 CAPSULE. PO SCH (09:28)
[2020-03-12] MEDS: CITALOPRAM 20 MG TABLET. PO SCH (09:29)
--- NOTE | 2020-03-12 10:08 | PDOC ---
SURGICAL PROGRESS NOTE Subjective Patient doing well minimal abdominal pain having bowel movements tolerating diet Vital Signs Vital Signs Date Time Temp Pulse Resp B/P (MAP) Pulse Ox O2 Delivery O2 Flow Rate FiO2 03/12/20 07:50 Room Air 03/12/20 07:00 98.7 89 18 132/87 (102) 93 98.7 03/11/20 08:00 10.0 I&O Intake and Output 03/12/20 06:59 Intake Total 700 ml Balance 700 ml Intake Oral 700 ml # Voids 1 PATIENT HAS A CONNELLY: No General: Alert, Oriented X3, Cooperative, mild distress Abdomen: Normal bowel sounds, Soft, Other (Mild incisional tenderness wound clean dry and intact) Problem List Problems Medical Problems: (1) Right lower quadrant abdominal pain Status: Acute Assessment/Plan Status post right hemicolectomy for obstructing colon mass. From surgical standpoint patient is stable could be discharged home, to follow- up with Dr. Garner in 2 weeks Justicifation of Admission Dx: Justifications for Admission: Justification of Admission Dx: Yes KATE GARNER MD Mar 12, 2020 10:08
[2020-03-12 11:00] VITALS: BP 113/78
--- NOTE | 2020-03-12 11:11 | PDOC ---
PROGRESS NOTES Chief Complaint Chief Complaint LATE ENTRY, pt seen 03/11 Abdominal pain postop no concerning signs Partial bowel obstruction secondary to hepatic flexure colon mass, awaiting pathology sepsis pain management IS further recommendations based on pathology will follow results of CEA ordered by data processing systems consultant. labs in am History of Present Illness History of Present Illness 03/11, better, no fever, try to DC soon 03/10, fever last night, culture taken and abx started pain better, still hot, advance diet to full liquid, OOB to chair, Operative Note Date: 03/07/2020 at 937 Preoperative diagnosis: Hepatic flexure colon mass partially obstructing Postoperative diagnosis: Same Procedure: Extended right hemicolectomy with omentectomy Surgeon: Garo Specimen: Extended right colon partial transverse colon and omentum done Dictation: Patient is a 44-year-old gentleman admitted to the hospital with righ t upper quadrant abdominal pain a CT scan showed a apple core lesion within his hepatic flexure causing partial obstruction. Procedure of colectomy was explained to the patient detail was benefits were also discussed including bleeding infection alternatives to this procedure also discussed with patient who seemed to understand and gave both verbal and written consent to have the procedure performed. Patient was taken to the operating room placed in the supine position general anesthesia was initiated once patient was sleeping intubated his abdomen was prepped and draped usual sterile fashion using ChloraPrep. Midline incision was made from just above the umbilicus to the epigastrium is carried down through the subcutaneous tissues electrocautery right hemostasis down the fascia fascia was opened electrocautery the peritoneum was opened Metzenbaum scissors once the abdomen was entered it was further opened electrocautery. Abdomen was inspected there was a large mass within the colon at the hepatic flexure liver appeared to be normal no masses noted was noted that the omentum was quite studded and very densely here to both the stom ach and transverse colon. Attention is returned to the resection mid transverse area where the colon appeared to be normal a window was propagated the mesentery which allowed for a DAVON stapler 75 to staple and transect the distal colon impact LigaSure was used to take down the mesentery was noted that the colon was densely adherent to the omentum this was taken down electrocautery but also very closely adherent to the duodenum on the backside careful dissection was used to peel off the colon from the duodenum there appeared to be no invasion of the duodenum or stomach. This dissection was carried around releasing hepatic flexure with electrocautery down the white line of Toldt on the right side using electrocautery. The terminal ileum was stapled and transected with a DAVON stapler and the right extended colon mesentery was taken off at the root using the impact LigaSure until the main vessel was tied doubly with 0 Vicryl. Specimen was passed off for pathology. Small bowel terminal ileum was brought up to the mid transverse colon a [id number] anastomosis was completed with a DAVON stapler 75 the enterotomy was closed with a running interlocking 3-0 Vicryl and oversewn with 3-0 Vicryl Lembert sutures. Abdomen was irrigated and suctioned dry hemostasis deemed be appropriate and the fascia was closed with a running oh loop PDS. Subcutaneous layer was closed with a 2-0 Vicryl running suture the skin was reapproximated 4-0 subcuticular Monocryl Mastisol Steri- Strips 4 x 4's Medipore tape were applied as dressing. Patient was awakened extubated in the operating room taken to recovery in stable condition all sponge instrument needle counts listed as correct estimated blood loss 60 mL. 03/08: No acute events reported overnight, case discussed with nursing staff p atient in no acute distress no complaints during my visit complaining of incisional wound pain 03/09: No new complaints, family at bedside, ambulating well no acute events reported overnight Vitals Vitals Vital Signs Date Time Temp Pulse Resp B/P (MAP) Pulse Ox O2 Delivery O2 Flow Rate FiO2 03/12/20 07:50 Room Air 03/12/20 07:00 98.7 89 18 132/87 (102) 93 98.7 03/11/20 08:00 10.0 Physical Exam General: Alert, Oriented X3, Cooperative, mild distress Heart: Regular rate, Normal S1, Normal S2 Abdomen: Normal bowel sounds, Soft, Other (Mild incisional tenderness wound clean dry and intact) Extremities: No clubbing, No cyanosis Skin: No significant lesion Assessment and Plan Assessmemt and Plan Problems Medical Problems: (1) Right lower quadrant abdominal pain Status: Acute Comment Review of Relevant I have reviewed the following items richar (where applicable) has been applied. Labs Microbiology 03/09/20 Blood Culture - Preliminary, Resulted NO GROWTH AFTER 2 DAYS 03/05/20 Urine Culture - Final, Complete Medications Current Medications Morphine Sulfate (Morphine Sulfate) 4 mg PRN Q15MIN PRN IV/SQ PAIN GREATER THAN 3/10 Last administered on 03/05/20at 20:22; Start 03/05/20 at 19:45; Stop 03/06/20 at 11:45; Status DC Sodium Chloride 1,000 ml @ 1,000 mls/hr Q1H IV Last administered on 03/05/20at 20:22; Start 03/05/20 at 19:33; Stop 03/05/20 at 20:32; Status DC Ondansetron HCl (Zofran) 4 mg 1X ONCE IVP Last administered on 03/05/20at 20:20; Start 03/05/20 at 19:45; Stop 03/05/20 at 19:47; Status DC Iohexol (Omnipaque 300 Mg/ml) 75 ml 1X ONCE IV Last administered on 03/05/20at 20:15; Start 03/05/20 at 20:15; Stop 03/05/20 at 20:19; Status DC Info (CONTRAST GIVEN -- Rx MONITORING) 1 each PRN DAILY PRN MC SEE COMMENTS; Start 03/05/20 at 20:30; Stop 03/07/20 at 20:29; Status DC Ondansetron HCl (Zofran) 4 mg PRN Q8HRS PRN IV NAUSEA/VOMITING; Start 03/05/20 at 22:30; Stop 03/06/20 at 22:29; Status DC Fentanyl Citrate (Fentanyl 2ml Vial) 50 mcg PRN Q2HRS PRN IV PAIN; Start 03/05/20 at 22:30; Stop 03/06/20 at 22:29; Status DC Sodium Chloride 1,000 ml @ 100 mls/hr Q10H IV Last administered on 03/06/20at 20:24; Start 03/05/20 at 22:30; Stop 03/06/20 at 22:29; Status DC Polyethylene Glycol (miraLAX PACKET) 34 gm 1X ONCE PO Last administered on 03/06/20at 08:15; Start 03/06/20 at 07:45; Stop 03/06/20 at 07:46; Status DC Ringer's Solution 1,000 ml @ 30 mls/hr Q24H IV Last administered on 03/07/20at 10:07; Start 03/07/20 at 07:00; Stop 03/07/20 at 12:59; Status DC Prochlorperazine Edisylate (Compazine) 5 mg PACU PRN PRN IV NAUSEA, MRX1; Start 03/07/20 at 07:00; Stop 03/07/20 at 13:51; Status DC Lorazepam (Ativan Inj) 1 mg PRN Q6HRS PRN IVP ANXIETY / AGITATION Last administered on 03/07/20at 13:46; Start 03/06/20 at 18:30 Ondansetron HCl (Zofran) 4 mg STK-MED ONCE .ROUTE ; Start 03/07/20 at 07:08; Stop 03/07/20 at 07:08; Status DC Propofol (Diprivan) 200 mg STK-MED ONCE IV ; Start 03/07/20 at 07:08; Stop 03/07/20 at 07:08; Status DC Lidocaine HCl (Lidocaine Pf 2% Vial) 5 ml STK-MED ONCE .ROUTE ; Start 03/07/20 at 07:08; Stop 03/07/20 at 07:08; Status DC Dexamethasone Sodium Phosphate (Decadron) 4 mg STK-MED ONCE .ROUTE ; Start 03/07/20 at 07:08; Stop 03/07/20 at 07:08; Status DC Fentanyl Citrate (Fentanyl 2ml Vial) 100 mcg STK-MED ONCE .ROUTE ; Start 03/07/20 at 07:08; Stop 03/07/20 at 07:09; Status DC Rocuronium [place] (Zemuron) 50 mg STK-MED ONCE .ROUTE ; Start 03/07/20 at 07:08; Stop 03/07/20 at 07:09; Status DC Levofloxacin/ Dextrose 100 ml @ As Directed STK-MED ONCE IV ; Start 03/07/20 at 07:45; Stop 03/07/20 at 07:46; Status DC Fentanyl Citrate (Fentanyl 2ml Vial) 100 mcg STK-MED ONCE .ROUTE ; Start 03/07/20 at 08:12; Stop 03/07/20 at 08:12; Status DC Glycopyrrolate (Robinul) 1 mg STK-MED ONCE .ROUTE ; Start 03/07/20 at 08:18; Stop 03/07/20 at 08:18; Status DC Neostigmine [place] (Neostigmine Methylsulfate) 5 mg STK-MED ONCE .ROUTE ; Start 03/07/20 at 08:18; Stop 03/07/20 at 08:19; Status DC Rocuronium [place] (Zemuron) 50 mg STK-MED ONCE .ROUTE ; Start 03/07/20 at 08:26 ; Stop 03/07/20 at 08:26; Status DC Phenylephrine HCl (PHENYLEPHRINE in 0.9% NACL PF) 1 mg STK-MED ONCE IV ; Start 03/07/20 at 08:46; Stop 03/07/20 at 08:46; Status DC Bupivacaine HCl/ Epinephrine Bitart (Sensorcaine-Epi 0.25%-1:639277 Mpf) 30 ml STK-MED ONCE .ROUTE Last administered on 03/07/20at 08:11; Start 03/07/20 at 09:33; Stop 03/07/20 at 09:33; Status DC Fentanyl Citrate (Fentanyl 2ml Vial) 100 mcg STK-MED ONCE .ROUTE ; Start 03/07/20 at 09:37; Stop 03/07/20 at 09:37; Status DC Sodium Chloride (Normal Saline Flush) 3 ml QSHIFT PRN IV AFTER MEDS AND BLOOD DRAWS; Start 03/07/20 at 09:45 Morphine Sulfate (Morphine Sulfate) 2 mg PRN Q3HRS PRN IV PAIN Last administered on 03/07/20at 12:10; Start 03/07/20 at 09:45 Oxycodone/ Acetaminophen (Percocet 5/325) 1 tab PRN Q4HRS PRN PO MILD PAIN, 1ST CHOICE Last administered on 03/07/20at 20:45; Start 03/07/20 at 09:45; Stop 03/09/20 at 16:26; Status DC Oxycodone/ Acetaminophen (Percocet 5/325) 2 tab PRN Q4HRS PRN PO MODERATE PAIN, SEVERE PAIN Last administered on 03/09/20at 14:41; Start 03/07/20 at 09:45; Stop 03/09/20 at 16:26; Status DC Ketorolac Tromethamine (Toradol 15mg Vial) 15 mg Q6HRS IV Last administered on 03/09/20at 06:15; Start 03/07/20 at 12:00; Stop 03/09/20 at 11:59; Status DC Ondansetron HCl (Zofran) 4 mg PRN Q6HRS PRN IV NAUSEA, 1ST CHOICE Last administered on 03/07/20at 15:12; Start 03/07/20 at 09:45 Dextrose/Lactated Ringer's 1,000 ml @ 75 mls/hr [id number] IV ; Start 03/07/20 at 09:44; Stop 03/07/20 at 12:59; Status DC Ringer's Solution 1,000 ml @ 30 mls/hr Q24H IV Last administered on 03/07/20at 09:30; Start 03/07/20 at 10:02; Stop 03/07/20 at 12:59; Status DC Ketorolac Tromethamine (Toradol 30mg Vial) 30 mg STK-MED ONCE .ROUTE ; Start 03/07/20 at 10:07; Stop 03/07/20 at 10:08; Status DC Hydromorphone HCl (Dilaudid) 0.5 mg PRN Q10MIN PRN IV Moderate to severe pain Last administered on 03/07/20at 10:41; Start 03/07/20 at 10:15; Stop 03/07/20 at 13:22; Status DC Hydromorphone HCl (Dilaudid) 2 mg STK-MED ONCE .ROUTE ; Start 03/07/20 at 10:22; Stop 03/07/20 at 10:22; Status DC Morphine Sulfate (Morphine Sulfate) 4 mg 1X ONCE IV Last administered on 03/07/20at 15:12; Start 03/07/20 at 15:00; Stop 03/07/20 at 15:01; Status DC Sodium Chloride 1,000 ml @ 100 mls/hr Q10H IV Last administered on 03/09/20at 05:34; Start 03/07/20 at 16:00; Stop 03/09/20 at 07:34; Status DC Morphine Sulfate (Morphine Sulfate) 4 mg 1X ONCE IV Last administered on 03/07/20at 19:44; Start 03/07/20 at 19:30; Stop 03/07/20 at 19:31; Status DC Hydromorphone HCl (Dilaudid) 0.5 mg PRN Q4HRS PRN IVP MODERATE PAIN Last administered on 03/09/20 18:39; Start 03/08/20 at 08:15 Hydromorphone HCl (Dilaudid) 1 mg PRN Q4HRS PRN IV SEVERE PAIN Last administered on 03/10/20 16:14; Start 03/08/20 at 08:15 Ertapenem 0.5 gm/ Sodium Chloride 50 ml @ 100 mls/hr DAILY IV ; Start 03/09/20 at 16:30; Status UNV Acetaminophen (Tylenol) 650 mg PRN Q6HRS PRN PO temp or pain Last administered on 03/09/20 23:07; Start 03/09/20 at 16:30 Ciprofloxacin/ Dextrose 200 ml @ 200 mls/hr Q12HR IV Last administered on 03/12/20 07:49; Start 03/09/20 at 17:00 Metronidazole 100 ml @ 100 mls/hr Q8HRS IV Last administered on 03/12/20 06:14; Start 03/09/20 at 17:00 Lactobacillus Rhamnosus (Culturelle) 1 cap BID PO Last administered on 03/12/20 09:28; Start 03/10/20 at 21:00 Cetirizine HCl (ZyrTEC) 10 mg DAILY PO Last administered on 03/12/20 09:28; Start 03/11/20 at 09:00 Citalopram Hydrobromide (CeleXA) 20 mg DAILY PO Last administered on 03/12/20 09:29; Start 03/10/20 at 20:30 Oxycodone/ Acetaminophen (Percocet 7.5/ 325) 1 tab PRN Q4HRS PRN PO SEVERE PAIN 7-10 Last administered on 03/12/20 02:39; Start 03/10/20 at 22:00 Active Scripts Active Reported Celexa (Citalopram Hydrobromide) 20 Mg Tablet 1 Tab PO DAILY Zyrtec (Cetirizine Hcl) 10 Mg Tablet 1 Tab PO DAILY Vitals/I & O Vital Sign - Last 24 Hours 03/11/20 03/11/20 03/11/20 03/11/20 12:30 13:40 15:00 19:43 Temp 98.7 98.2 98.7 98.2 Pulse 93 91 Resp 16 16 18 18 B/P (MAP) 131/69 (89) 126/90 (102) Pulse Ox 91 95 O2 Delivery Room Air Room Air Room Air Room Air 03/11/20 03/11/20 03/11/20 03/11/20 19:57 20:00 20:57 23:36 Temp 99.6 99.6 Pulse 94 Resp 18 20 16 B/P (MAP) 133/89 (104) Pulse Ox 95 94 94 O2 Delivery Room Air Room Air Room Air Room Air 03/12/20 03/12/20 03/12/20 03/12/20 02:39 03:28 03:39 07:00 Temp 99.1 98.7 99.1 98.7 Pulse 97 89 Resp 20 16 20 18 B/P (MAP) 137/93 (108) 132/87 (102) Pulse Ox 94 94 94 93 O2 Delivery Room Air Room Air Room Air Room Air 03/12/20 07:50 O2 Delivery Room Air Intake and Output 03/11/20 03/11/20 03/12/20 14:59 22:59 06:59 Intake Total 500 ml 200 ml Balance 500 ml 200 ml Justicifation of Admission Dx: Justifications for Admission: Justification of Admission Dx: Yes CHEPE CORDERO MD Mar 12, 2020 11:10
--- NOTE | 2020-03-12 11:15 | NUR ---
SW following. Discussed with RN, discharge order for home with self care. No further SW needs.
[2020-03-12] MEDS ORDERED: TRAM-48 PO (11:43)
[2020-03-12] MEDS ORDERED: ACET325T9 PO (11:43)
[2020-03-12] MEDS ORDERED: DOCU-109 PO (11:43)
[2020-03-12] MEDS ORDERED: METR500T PO (11:45)
--- NOTE | 2020-03-12 12:01 | PDOC3 ---
Discharge Summary Visit Information Date of Admission: Mar 05, 2020 Date of Discharge: Mar 12, 2020 Final Diagnosis Abdominal pain postop no concerning signs Partial bowel obstruction secondary to hepatic flexure colon mass, awaiting pathology sepsis w./ fever post-op further recommendations based on pathology, still pending, Problems Medical Problems: (1) Right lower quadrant abdominal pain Status: Acute Brief Hospital Course Allergies Allergies Coded Allergies Type Severity Reaction Last Updated Verified Penicillins Allergy Intermediate 03/05/20 Yes Vital Signs Vital Signs Date Time Temp Pulse Resp B/P (MAP) Pulse Ox O2 Delivery O2 Flow Rate FiO2 03/12/20 11:00 98.4 86 18 113/78 (90) 94 Room Air 98.4 03/11/20 08:00 10.0 Brief Hospital Course Mr. Watt is a 44 old man who is been in good health with no significant GI complaints in the past. Admti w/ sudden onset of abdominal pain mostly right lower quadrant. sharp stabbing pain and taken to the OR after CT showed mass w./ obstruction OR on 03/07, Dr. Wyman, Extended right hemicolectomy with omentectomy f/u 2 weeks, pending final path, inital showed no malignancy Discharge Information Condition at Discharge: Improved Follow Up: Weeks Disposition/Orders: D/C to Home Scheduled Cetirizine Hcl (Zyrtec) 10 Mg Tablet, 1 TAB PO DAILY for allergies, #30 Ref 2 (Reported) Entered as Reported by: SERGO MORAN on 03/06/20 0159 Last Action: Continued on 03/10/201855 by CHEPE CORDERO Citalopram Hydrobromide (Celexa) 20 Mg Tablet, 1 TAB PO DAILY for anxiety and depression, #90 Ref 3 (Reported) Entered as Reported by: SERGO MORAN on 03/06/20 0652 Last Action: Continued on 03/10/201855 by CHEPE CORDERO Docusate Sodium (Colace) 100 Mg Capsule, 100 MG PO DAILY for prevent constipation, #30 Prescribed by: CHEPE CORDERO on 03/12/20 1143 Metronidazole (Flagyl) 500 Mg Tablet, 500 MG PO TID for gut infection, #21 Prescribed by: CHEPE CORDERO on 03/12/20 1145 Scheduled PRN Acetaminophen (Tylenol) 325 Mg Tablet, 650 MG PO PRN Q6HRS PRN for PAIN, #60 Prescribed by: CHEPE CORDERO on 03/12/20 1143 Tramadol Hcl (Ultram) 50 Mg Tablet, 1 TAB PO PRN TID PRN for pain MDD 3 Tablet(s) for 10 Days, #19 Ref 0 Prescribed by: CHEPE CORDERO on 03/12/20 1144 Patient Instructions Patient Instructions > 30 min face to face Justicifation of Admission Dx: Justifications for Admission: Justification of Admission Dx: Yes CHEPE CORDERO MD Mar 12, 2020 12:01
--- NOTE | 2020-03-12 13:34 | NUR ---
reviewed discharge instructions with and Walt. questions answered script and copy of discharge instructions with follow up doctors.
--- NOTE | 2020-03-12 14:30 | NUR ---
received message from Dr. Weeks that it was ok to go home and the pathology is prob cancer. message relayed to patient and . they become upset and state that the last time he spoke with them that it was negative for cancer. Why do our doctors not seem to know what is going on. is he coming here? new message sent to Dr. Weeks's office. it replied and stated that he would be here in in a hour. message relayed to that he was rounding at another hospital and would be here in a hour. Dr. Weeks also stated that he spoke to Mr. Watt and told him that it was cancer. Ms Watt was upset about the diagnosis. stated why were they told something else. wanted to speak to an welfare administrator. asked who would they like to speak to: DON, charge Nurse. refused and stated that they would speak to them later and a electrical inspector. given paper work for release of information. nursing supervisor assembly of conflict.
[2020-03-12 15:07] VITALS: BP 124/81
--- NOTE | 2020-03-15 10:06 | PATHOLOGY ---
[facility] Accession Number: [id number] . 01 Material submitted: . colon - EXTENDED RIGHT COLON, OMENTUM, AND TRANSVERSE COLON. Modifiers: transverse, right . 01 Clinical history: . Apple core lesion-hepatic flexure with partial obstruction . 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 SEE COMMENT. - Invasive poorly differentiated carcinoma involving omentum, focal. - Four of seventeen mesocolic lymph nodes focally containing isolated tumor cells. - Focal tumor involvement of distal (transverse colon) margin of resection. - Proximal (terminal ileum) margin resection negative for tumor. - Appendix showing no significant pathologic abnormalities. . (JPM:malka; 03/10/2020) MBR 03/12/2020 1816 Local . 02 Comment: Sections of the extended right colon resection and the segmental transverse colon resection appear similar and show an invasive poorly differentiated carcinoma involving the hepatic flexure region and the transverse colon. The colonic mucosa in these sites is uninvolved by tumor. There is tumor infiltration of submucosa, muscularis propria, and serosa/mesocolon. The tumor cells are loosely cohesive and infiltrate as individual tumor cells and as short columns of tumor cells. Tumor cells have small amounts of eosinophilic cytoplasm, and possess rounded to ovoid nuclei containing nucleoli. Some tumor cells possess enlarged irregular hyperchromatic nuclei. Occasional tumor cells possess intracytoplasmic mucin vacuoles imparting a signet-ring cell appearance. A panel of immunoperoxidase stains is obtained on block A8 from the hepatic flexure region and on block A18 from the transverse colon and yield the following results: . AE1/AE3 (A8): Tumor cells positive. Cytokeratin 7 (A8): Tumor cells positive. Cytokeratin 20 (A8): Tumor cells focally positive. CDX2 (A8): Tumor cells positive (variable intensity). . AE1/AE3 (A18): Tumor cells positive. Cytokeratin 7 (A18): Tumor cells positive. Cytokeratin 20 (A18): Tumor cells focally positive. CDX2 (A18): Tumor cells positive (variable intensity). . Immunoperoxidase stains for AE1/AE3 are performed on the mesocolic lymph nodes and yield the following results: . AE1/AE3 (A3): Single lymph node negative for tumor cells. AE1/AE3 (A8): Single lymph node containing focal isolated tumor cells. AE1/AE3 (A14): One of four lymph nodes with rare isolated tumor cells. AE1/AE3 (A15): Single lymph node negative for tumor cells. AE1/AE3 (A23): One of six lymph nodes containing a few isolated tumor cells. AE1/AE3 (A24): One of four lymph nodes containing rare isolated tumor cells. . Thus there are a total of 4 out of 17 mesocolic lymph nodes containing isolated tumor cells. . Sections of the omentum show focal infiltrating poorly differentiated carcinoma. . While I cannot absolutely exclude the possibility of a primary poorly differentiated colonic carcinoma arising in the hepatic flexure and transverse colon, I am unable to demonstrate a colonic mucosal origin of the tumor. The morphologic and immunophenotypic findings in this case are suggestive of a drop metastasis from a gastric poorly cohesive carcinoma. Upper GI endoscopy is recommended to rule out that possibility. The results are discussed with Dr. Velasquez and Dr. Wyman on 03/12/20. . (JIMMIEM:malka; 03/12/2020) . Special stains performed: Immunoperoxidase stains for AE1/AE3 on A8, A18, A23, A24, A3, A14, A15. Also immunoperoxidase stains for CK7 on A8 and A18, for CK20 on A18 and A8, and CDX2 on A8 and A18. . 02 Electronically signed: . Roberto Maravilla MD, Pathologist NPI- [id number] . 01 Gross description: . The specimen is received in formalin, labeled "Walt Watt, extended right colon, omentum, transverse colon". Received is a right hemicolectomy specimen consisting of a segment of small bowel measuring 3.2 cm in length by 2.8 cm in diameter contiguous with a segment of colon measuring 26.1 cm in length and ranges in diameter from 3.2 to 7.2 cm. Both margins are stapled closed. The serosal surface of the small bowel is pink-dubois and glistening in appearance. The serosal surface of the colon is pink-dubois and glistening in appearance with adhesed omentum identified near the distal margin. The attached pericolic fat measures up to 5.2 cm in thickness. There is a moderate amount of attached omentum measuring 14.8 x 7.2 x 1.8 cm, and is predominantly firm near the distal margin. The mesenteric margin is inked yellow. The specimen is opened along the antimesenteric line to reveal light belle mucosa with moderate architectural folds within the small bowel. The ileocecal valve is light belle and grossly unremarkable. There is a strictured area of the distal colon. The mucosa has a belle granular cobblestone appearance. This area measures 5.1 x 3.2 cm, and is 4.7 cm from the closest margin (distal). The colon is firm within this area. Sectioning reveals muscular wall thickening in this area, measuring up to 0.6 cm in thickness. There is no grossly distinct mass extending through the muscularis propria. The colonic mucosa proximal to this area is dusky dubois-belle and predominately flattened in appearance with minimal architectural folds. The colonic mucosa distal to this area is light belle to dusky dubois-belle in appearance with normal architectural folds. The appendix is present measuring 3.3 cm in length by 0.7 cm in diameter and appears grossly unremarkable. Sectioning through the omentum reveals yellow-belle, lobulated cut surfaces with no grossly distinct nodules or lesions. Sectioning through the attached pericolic fat reveals 5 readily identifiable lymph nodes ranging in size from 0.4 to 0.8 cm in maximum dimensions. The specimen is submitted representatively as follows: . A1 proximal margin A2 distal margin A3 mesenteric margin A4 cross-section of small bowel A5 ileocecal valve A6-A9 customer success representative sections through strictured area with muscular wall thickening A10 colonic mucosa proximal to strictured area A11 colonic mucosa distal to strictured area A12 customer success representative sections of appendix, to include proximal margin and bisected tip A13 customer success representative section of omentum near distal margin A14 intact lymph nodes A15 one bisected lymph node. . Also received within the specimen container is an additional segment of unoriented colon measuring 7.5 cm in length and ranges in diameter from 2.2 to 2.7 cm as well as a segment of omentum measuring 20.8 x 10.5 x 1.4 cm. Both margins of the colon are stapled closed. The serosal surface of the colon is pink-belle to pink-dubois in appearance. The attached pericolic fat measures up to 2.5 cm in thickness. There is a large amount of adhesed omentum to the serosal surface. The specimen is opened along the antimesenteric line to reveal a light belle irregular cobblestone patch of mucosa measuring 4.5 x 2.5 cm, which is 0.6 cm from the closest margin. The muscular wall is thickened in this area measuring up to 0.3 cm. There is no grossly distinct mass extending through the muscularis propria into the underlying soft tissue. The remainder of the colonic mucosa is light belle in appearance with normal architectural folds. Sectioning through the attached pericolic fat reveals no readily identifiable lymph nodes. Sectioning through the adhesed omentum reveals yellow-belle, lobulated cut surfaces with no grossly distinct nodules or lesions. Sectioning through the separately submitted segment of omentum reveals yellow-belle, lobulated cut surfaces with no grossly distinct nodules or lesions. The specimen is submitted representatively as follows: . A16-A17 both margins of colon A18-A20 customer success representative sections of cobblestone area with muscular wall thickening A21 customer success representative section of adhesed omentum A22 customer success representative sections of separately submitted omentum. (CAA; 03/09/2020) . After initial microscopic examination, further sectioning through the attached pericolic fat reveals 11 additional lymph nodes near the lesion in the hepatic flexure ranging in size from 0.4 to 0.6 cm in maximum dimensions. The lymph nodes are submitted intact in cassettes A23 and A24. (CAA; 03/10/2020) QA/QA 03/12/2020 1811 Local . 02 Pathologist provided ICD-10: C18.3, C48.1 . 02 CPT . 703690, F50493, L37158 Specimen Comment: A courtesy copy of this report has been sent to [phone], [phone] Specimen Comment: [id number], Specimen Comment: Report sent to ,DR LIU / DR TURNER Performed at: 01 [facility] [address], [place] [id number] MD Abraham Barnett MD Phone: [phone] Performed at: 02 [facility] [address] [place], [place] [id number] MD Roberto Maravilla MD Phone: [phone]
== END 2020-03-12 15:30 | disposition home or self-care (01) | DRG 329 ==
LOC: ER 18:23 → 4 NORTH 22:42
PROVIDERS: ADMIT Family Medicine; ATTEND Family Medicine
PROC: 0DBU0ZZ Excision of Omentum, Open Approach (ICD-10-PCS; 2020-03-07)
PROC: 0DTF0ZZ Resection of Right Large Intestine, Open Approach (ICD-10-PCS; principal; 2020-03-07 08:00)
DX: K56.600 Partial intestinal obstruction, unspecified as to cause (principal); A41.9 Sepsis, unspecified organism; Z20.828 Contact with and (suspected) exposure to other viral communicable diseases; F17.210 Nicotine dependence, cigarettes, uncomplicated; Z83.3 Family history of diabetes mellitus; G56.00 Carpal tunnel syndrome, unspecified upper limb; Z88.0 Allergy status to penicillin; K63.9 Disease of intestine, unspecified
CPT/HCPCS: 36415; 74177; 80048; 80053; 81001; 82378; 83605; 83690; 85007; 85025; 87040; 87086; 87426; 88309; 88341; 88342; 96361; 96374; 96375; A7015; C1769; G0238; J0744; J1100; J1170; J1885; J1956; J2060; J2270; J2370; J2405; J2704; J2710; J3010; J3490; J7030; J7120; Q9967; 99285-25; G0378; U0003-CS

== ENCOUNTER → 2020-10-18 | Outpatient (CLI) | payer BC ==
[~2020-10-18] MED LIST: ACET325T9 PO; BARIUM SULFATE 340 GM SUSPENSION. PO ONE; BARIUM SULFATE 60% 355 ML SUSP PO ONE; BARIUM SULFATE 700 MG TABLET PO ONE; CETI10TA74 PO; CITA20TA9 PO; DOCU-109 PO; METR500T PO; SIMETHICONE/SOD BICARB/CITRIC ACID PACKET. PO ONE; TRAM-48 PO
--- NOTE | 2020-10-18 14:01 | RAD ---
EXAM: Barium esophagram. HISTORY: Gastric cancer. TECHNIQUE: Fluoroscopic imaging was performed in multiple positions and obliquities during the oral a dministration of barium contrast of thin and thick consistencies. Effervescent crystals were administ ered for dedicated air contrast views. 11 fluoroscopic cine images were obtained for a total fluorosc opy time of 1.7 minutes. COMPARISON: CT dated 03/05/2020. FINDINGS: There is normal swallowing function, without evidence of aspiration or penetration. The eso phagus is normal in caliber. No esophageal mucosal lesion is seen. There is normal transit of contras t into the stomach. The gastric contour and mucosal pattern is unremarkable. There is normal emptying of contrast into the small bowel. There is no evidence of gastroesophageal reflux. There is a right chest wall port catheter in expected position. IMPRESSION: 1. Unremarkable barium esophagram. 2. Note is made that the reported gastric neoplasm is not seen on this exam. Correlate with endoscopy findings. Electronically signed by: Mariah Riojas MD (10/18/2020 1:59 PM) [id number]
== END ==
LOC: RAD 13:28
PROVIDERS: ATTEND Surgery
DX: C16.9 Malignant neoplasm of stomach, unspecified (principal)
CPT/HCPCS: 74220

== ENCOUNTER → 2020-10-22 | Outpatient (CLI) | payer BC ==
[~2020-10-22] MED LIST changes: -BARIUM SULFATE 340 GM SUSPENSION. PO ONE; -BARIUM SULFATE 60% 355 ML SUSP PO ONE; -BARIUM SULFATE 700 MG TABLET PO ONE; +CONTRAST GIVEN. MC PRN; -SIMETHICONE/SOD BICARB/CITRIC ACID PACKET. PO ONE
[2020-10-22] MEDS: IOHEXOL 300 MG/ML 100ML VIAL. PR ONE (08:15)
--- NOTE | 2020-10-22 09:23 | RAD ---
EXAM: Water-soluble enema. HISTORY: 45-year-old male with a history of metastatic gastric cancer resulting in colonic obstructio n presents for evaluation prior to colostomy takedown surgery. TECHNIQUE: The patient was placed in a left lateral decubitus position on the fluoroscopy table and a balloon tipped rectal catheter was advanced into the rectum. The balloon was inflated and a stitch bonding machine drawer in im age of the pelvis was obtained. Fluoroscopic images were then obtained in multiple positions and obli quities during the retrograde administration of water-soluble contrast. Standard overhead images were obtained and a postevacuation image was obtained. A total of 10 fluoroscopic images were obtained fo r total fluoroscopy time of 0.6 minutes. COMPARISON: CT dated 03/05/2020. FINDINGS: The stitch bonding machine drawer in images of the abdomen and pelvis demonstrate a nonobstructive bowel gas pattern. There is a surgical anastomosis within the left upper quadrant. There are few incidental pelvic phleb oliths. The images obtained following the administration of water-soluble contrast through a rectal c atheter demonstrate contrast opacification of the distal colon. There is increase in bowel caliber at the level of a left upper quadrant ileocolic anastomosis. There is no obstruction, extravasation or fistula. There are few small distal colonic diverticula. No suspicious intrinsic mucosal lesion is se en. There is a filling defect within the distal small bowel loop within the left upper abdomen likely due to mucus or fecal material. There is minimal residual contrast within the small bowel and colon on a postevacuation image. IMPRESSION: 1. Findings consistent with partial colonic resection with left upper quadrant ileocolic anastomosis. There is no dehiscence, stricture, fistula or suspicious intrinsic mucosal lesion. 2. Few small distal colonic diverticula. Electronically signed by: Mariah Riojas MD (10/22/2020 9:21 AM) [id number]
== END ==
LOC: RAD 09:36
PROVIDERS: ATTEND Surgery
DX: C16.9 Malignant neoplasm of stomach, unspecified (principal); K57.30 Diverticulosis of large intestine without perforation or abscess without bleeding; I87.8 Other specified disorders of veins
CPT/HCPCS: 74270; Q9967

== ENCOUNTER → 2020-11-12 | Outpatient (CLI) | payer BC ==
[~2020-11-12] MED LIST changes: +CALC300T5 PO; +CITA40TA12 PO; -CONTRAST GIVEN. MC PRN; +LANS15CA78 PO
== END ==
LOC: LAB 11:10
PROVIDERS: ATTEND Surgery
DX: Z01.812 Encounter for preprocedural laboratory examination (principal); C16.9 Malignant neoplasm of stomach, unspecified; K56.609 Unspecified intestinal obstruction, unspecified as to partial versus complete obstruction; Z20.822 Contact with and (suspected) exposure to COVID-19
CPT/HCPCS: U0003; U0005